=== PATIENT | male | born 1995 | race Caucasian/White ===

== ENCOUNTER 2021-06-14 19:39 | Emergency (ER) | payer OTHER ==
[2021-06-14] MEDS ORDERED: HYDROcod/ACETAM 5/325 MG TABLET PO STA (20:45)
--- NOTE | 2021-06-14 20:48 | ED Physician Documentation ---
History of Present Illness - Stated complaint Stated Complaint: LEFT EAR PX - Chief complaint Chief Complaint: Heent - History obtained from History obtained from: Patient - History of Present Illness Timing: How many days ago (2) Pain level max: 7 Pain level now: 7 - Additonal information Additional information: 26-year-old male states that he has had pain in the left ear for 2 days. Nothing makes it better or worse. No fevers. No chills. No rhinorrhea or congestion. No cough. Review of Systems Constitutional: denies: Fever, Chills GI: denies: Vomiting, Diarrhea Skin: denies: Rash Musculoskeletal: denies: Neck pain, Back pain Neurologic: denies: Headache PD PAST MEDICAL HISTORY - Past Medical History Past Medical History: Yes : Kidney stones - Past Surgical History Past Surgical History: Yes Ortho: Other - Present Medications Home Medications: Ambulatory Orders Medication Instructions Recorded Confirmed Neomycin/Polymyx/Hc Otic Drops 4 drops OT TID 10 Days #10 ml 06/14/21 [Cortisporin Ear Susp] - Allergies Allergies/Adverse Reactions: Allergies Allergy/AdvReac Type Severity Reaction Status Date / Time No Known Drug Allergies Allergy Verified 06/14/21 19:42 - Social History Does the pt smoke?: Yes Smoking Status: Current every day smoker Does the pt drink ETOH?: Yes - Immunizations Immunizations are current?: No Immunizations: TDAP >10years/unknown PD ED PE NORMAL - Vitals Vital signs reviewed: Yes - General General: Alert and oriented X 3, No acute distress - HEENT HEENT: Moist mucous membranes, Pharynx benign, Other (Bilateral TMs are normal. Right ear canal is normal. The left ear canal is erythematous with white drainage.) - Neck Neck: Supple, no meningeal sign - Derm Derm: Warm and dry - Neuro Neuro: Alert and oriented X 3 Results - Vitals Vitals: Vital Signs - 24 hr 06/14/21 06/14/21 06/14/21 19:43 20:02 20:56 Temperature 36.5 C 36.5 C 36.5 C Heart Rate 80 80 72 Respiratory 16 16 16 Rate Blood Pressure 143/77 H 143/77 H 142/81 H O2 Saturation 97 97 97 Oxygen O2 Source Room air PD MEDICAL DECISION MAKING - ED course Complexity details: considered differential, d/w patient ED course: Patient with a mild left acute otitis externa. Will place on Cortisporin otic. We will have him follow-up with his doctor for further care. Patient counseled regarding signs and symptoms for which I believe and urgent re-evaluation would be necessary. Patient with good understanding of and agreement to plan and is comfortable going home at this time This document was made in part using voice recognition software. While efforts are made to proofread this document, sound alike and grammatical errors may occur. Departure - Departure Disposition: 01 Home, Self Care Clinical Impression: Otitis externa Qualifiers: Otitis externa type: unspecified type Chronicity: acute Laterality: left Qualified Code(s): H60.502 - Unspecified acute noninfective otitis externa, left ear Condition: Good Instructions: ED Otitis Externa Follow-Up: your,doctor in 1 week [Other] Prescriptions: Neomycin/Polymyx/Hc Otic Drops [Cortisporin Ear Susp] 4 drops OT TID 10 Days #10 ml Comments: Use the antibiotic drops as prescribed. Follow-up with your doctor for further care. Return if you worsen. [facility] was [facility] to [facility] [place] Discharge Date/Time: 06/14/21 20:56
[2021-06-14 20:57] VITALS: BP 142/81
== END 2021-06-14 20:56 | disposition home or self-care (01) ==
LOC: ED 19:39
DX: H60.502 Unspecified acute noninfective otitis externa, left ear (principal); F17.200 Nicotine dependence, unspecified, uncomplicated
CPT/HCPCS: 99282; 99283; A9270

== ENCOUNTER 2021-07-06 18:03 | Emergency (ER) | payer MEDICAID ==
[2021-07-06] MEDS ORDERED: HYDROmorphone 1 MG/ML CARPUJECT IM STA (21:15)
--- NOTE | 2021-07-06 21:17 | ED Physician Documentation ---
History of Present Illness - Stated complaint Stated Complaint: EAR PX,BACK PX - Chief complaint Chief Complaint: Ext Problem - Additonal information Additional information: 18-year-old male presents emergency department for 3 concerns 1. Acute left ear pain that he noticed this evening when he got out of the bath. He reports he submerges his head in the bathtub wash his hair and he had some pain and discharge following this. No recent cough cold congestion or fevers. He is concerned he may have an ear infection. 2. Right small toe pain after dropping a 20 pound toolbox on it this afternoon. Pain with weightbearing but no deformity. No history of previous injury 3. Left low back pain after lifting boxes of heavy ramsey yesterday. He denies any history of previous back pain. No saddle anesthesia. No fevers. No bowel or bladder incontinence. He has not taken anything for pain. Review of Systems Constitutional: denies: Fever, Chills Eyes: reports: Reviewed and negative Ears: reports: Ear pain Nose: reports: Reviewed and negative Throat: reports: Reviewed and negative Cardiac: reports: Reviewed and negative Respiratory: reports: Reviewed and negative GI: denies: Abdominal Pain, Nausea, Vomiting : reports: Reviewed and negative Skin: denies: Rash Musculoskeletal: reports: Back pain PD PAST MEDICAL HISTORY - Past Medical History : Kidney stones - Past Surgical History Past Surgical History: Yes Ortho: Other - Present Medications Home Medications: Ambulatory Orders Medication Instructions Recorded Confirmed Neomycin/Polymyx/Hc Otic Drops 4 drops OT TID 10 Days #10 ml 06/14/21 [Cortisporin Ear Susp] Cyclobenzaprine [Flexeril] 10 mg PO TID PRN #15 tablet 07/06/21 Ibuprofen [Motrin] 600 mg PO Q6H PRN #30 tab 07/06/21 - Allergies Allergies/Adverse Reactions: Allergies Allergy/AdvReac Type Severity Reaction Status Date / Time No Known Drug Allergies Allergy Verified 07/06/21 18:26 - Social History Does the pt smoke?: Yes Smoking Status: Current every day smoker Does the pt drink ETOH?: Yes - Immunizations Immunizations are current?: No Immunizations: TDAP >10years/unknown PD ED PE EXPANDED - General General: Alert, No acute distress - Cardiac Cardiac: Regular Rate, Radial strong equal, Pedal strong equal, Cap refill < 2 sec - Respiratory Respiratory: Clear to ausultation thomas. No: Distress, Labored - Abdomen Abdomen: Normal Bowel sounds. No: Tender to palpation - Back Back: Normal exam, Soft tissue tenderness (Left lower paraspinous tenderness. Reduced forward flexion. Mildly antalgic gait. Able to bear full weight. No midline spinous process tenderness.). No: Vertebral tenderness, Straight leg raise + R, Straight leg raise + L, CVA TTP right, CVA TTP left - Derm Derm: Normal color, Warm and dry - Extremities Extremities: Right toe(s) (Tenderness without ecchymosis or deformity to the ri ght small toe. Tenderness to palpation.) Results - Vitals Vitals: Vital Signs - 24 hr 07/06/21 18:27 Temperature 36.9 C Heart Rate 77 Respiratory 18 Rate Blood Pressure 151/70 H O2 Saturation 97 Oxygen O2 Source Room air - Rads (name of study) toes Radiology: EMP read indepedently (no acute fracture) PD MEDICAL DECISION MAKING - ED course Complexity details: reviewed results, considered differential, d/w patient ED course: 18-year-old male presents emergency department with 3 concerns. 1. Complaints of left ear pain when submerging his head in the bath. Reported some drainage following the bath. On exam there is a small amount of cerumen within the ear canal but no fluid or EAC erythema. The tympanic membranes intact without effusion noted. There is no mastoid tenderness or swelling of the external ear. 2. Right small toe pain after dropping a toolbox on it. My evaluation of the x-ray shows no acute fracture. I discussed with patient that this likely could be a subtle contusion versus an occult fracture. Toe will be chris taped recomm end ibuprofen and icing following up with PCP. 3. Left low back pain after lifting boxes of heavy ramsey yesterday. There are no red flags. Initially offered the patient Dilaudid but he prefers an oral hydrocodone. Patient will be prescribed ibuprofen with limited amount of muscle relaxer discussed the importance of gentle stretching and ice versus heat. Emergent return precautions discussed. Departure - Departure Disposition: 01 Home, Self Care Clinical Impression: Contusion of right lesser toe(s) with damage to nail, initial encounter, Left ear pain Left low back pain Qualifiers: Chronicity: acute Sciatica presence: without sciatica Qualified Code(s): M54.5 - Low back pain Condition: Stable Record reviewed to determine appropriate education?: Yes Prescriptions: Cyclobenzaprine [Flexeril] 10 mg PO TID PRN #15 tablet PRN Reason: Spasms Ibuprofen [Motrin] 600 mg PO Q6H PRN #30 tab PRN Reason: Pain Comments: Sj cooper were seen today for 3 concerns. You reported left ear pain. There is a small amount of earwax in the ear canal but there are no findings to suggest infection in the ear canal or behind the eardrum. You also dropped a heavy toolbox on your small right toe. The x-ray does not show a fracture. It is possible that you simply have a contusion or bruise. This can be very uncomfortable. I do recommend that you ice the toe over the next 2 to 3 days. Taping your toe next to the other toe can help improve pain. Most instances this will begin to resolve over the next 7 to 10 days. You also developed some left-sided back pain after lifting heavy ramsey. Again this is most likely a muscle strain or contusion. You were given a one- time dose of hydrocodone here in the emergency department. The recommendation for back pain is gentle stretching to keep the muscles nice and limber. Icing the back for 10 minutes 3 times a day for the first 2 to 3 days and then gentle heat. I am prescribing a limited amount of ibuprofen to be taken with food. I will also prescribe a little bit of a muscle relaxer which should help. I encourage you to follow-up with your primary care provider over the next week. If your symptoms are not improving, you develop fevers have uncontrolled vomiting, develop drainage from your ear then please return immediately to the ER.
[2021-07-06] MEDS ORDERED: HYDROcod/ACETAM 5/325 MG TABLET PO STA (21:19)
--- NOTE | 2021-07-06 21:29 | XRAY Report ---
PROCEDURE: Toe(s) RT INDICATIONS: dropped object little toe TECHNIQUE: 3 views of the fifth toe(s) acquired. COMPARISON: None. FINDINGS: Bones: No definite fracture. No dislocations. No suspicious bony lesions. Soft tissues: No suspicious soft tissue densities. IMPRESSION: No definite fracture. Consider follow-up radiographs in 10-14 days. Reviewed by: Jose Faye MD on 07/06/2021 9:28 PM PDT Approved by: Jose Faye MD on 07/06/2021 9:28 PM PDT Station ID: [id number]
[2021-07-06 21:33] VITALS: BP 133/85
== END 2021-07-06 21:33 | disposition home or self-care (01) ==
LOC: ED 18:03
DX: S90.121A Contusion of right lesser toe(s) without damage to nail, initial encounter (principal); W20.8XXA Other cause of strike by thrown, projected or falling object, initial encounter; H92.02 Otalgia, left ear; M54.5 Low back pain; F17.200 Nicotine dependence, unspecified, uncomplicated
CPT/HCPCS: 73660; 99283; 99284; A9270

== ENCOUNTER 2021-07-16 08:52 | Emergency (ER) | payer MEDICAID ==
--- NOTE | 2021-07-16 09:44 | ED Physician Documentation ---
PD HPI NVD - Stated complaint Stated Complaint: NAUSEA/CHILLS - Chief complaint Chief Complaint: Abd Pain - History obtained from History obtained from: Patient - History of Present Illness Timing - onset: Last night, Yesterday Timing - duration: Days (1) Timing - details: Abrupt onset, Still present Associated symptoms: Fever, Loss of appetite, Other (general malaise, nausea, diarrhea and feverish since last evening. Multiple episodes of loose/watery stool diarrhea.). No: Near syncope / syncope Contributing factors: No: Sick contact, Bad food, Travel, Recent antibiotics Similar symptoms before: Has not had sx before Recently seen: Not recently seen Review of Systems Constitutional: reports: Fever, Chills, Myalgias Nose: denies: Rhinorrhea / runny nose, Congestion Throat: denies: Sore throat Cardiac: reports: Chest pain / pressure. denies: Palpitations Respiratory: denies: Cough GI: reports: Nausea, Diarrhea, Bloody / black stool (he states the stools are dark.). denies: Abdominal Pain (intermittent cramps, not consistent.), Vomiting, Constipation Neurologic: reports: Generalized weakness. denies: Near syncope, Altered mental status, Headache PD PAST MEDICAL HISTORY - Past Medical History Cardiovascular: None Respiratory: None Neuro: None GI: None : Kidney stones - Past Surgical History Past Surgical History: Yes Ortho: Other - Present Medications Home Medications: Ambulatory Orders Medication Instructions Recorded Confirmed Neomycin/Polymyx/Hc Otic Drops 4 drops OT TID 10 Days #10 ml 06/14/21 [Cortisporin Ear Susp] Cyclobenzaprine [Flexeril] 10 mg PO TID PRN #15 tablet 07/06/21 07/16/21 Ibuprofen [Motrin] 600 mg PO Q6H PRN #30 tab 07/06/21 07/16/21 Diphenoxylate/Atropine [Lomotil] 1 each PO QID PRN #10 tablet 07/16/21 FLUoxetine [PROzac] 1 tab PO DAILY 07/16/21 07/16/21 HYDROcod/ACETAM 5/325 [Mifflin 5/325] 1 ea PO Q6H PRN #10 tablet 07/16/21 Lurasidone HCl [Latuda] 10 mg PO DAILY 07/16/21 07/16/21 Ondansetron Odt [Zofran] 4 mg TL Q6H PRN #10 tablet 07/16/21 - Allergies Allergies/Adverse Reactions: Allergies Allergy/AdvReac Type Severity Reaction Status Date / Time No Known Drug Allergies Allergy Verified 07/16/21 09:23 - Social History Does the pt smoke?: Yes Smoking Status: Current every day smoker Does the pt drink ETOH?: Yes - Immunizations Immunizations are current?: No Immunizations: TDAP >10years/unknown PD ED PE NORMAL - Vitals Vital signs reviewed: Yes - General General: Alert and oriented X 3, Well developed/nourished - HEENT HEENT: Pharynx benign. No: Moist mucous membranes - Neck Neck: Supple, no meningeal sign, No adenopathy - Cardiac Cardiac: RRR, No murmur - Respiratory Respiratory: Clear bilaterally - Abdomen Abdomen: Soft, Non tender, Non distended, No organomegaly - Derm Derm: Normal color, Warm and dry - Neuro Neuro: Alert and oriented X 3, No motor deficit, Normal speech Results - Vitals Vitals: Oxygen O2 Source Room air - Labs Labs: Microbiology 07/16/21 10:19 Occult Blood - Final Stool - Soft Consistency PD MEDICAL DECISION MAKING - ED course Complexity details: re-evaluated patient (feeling much better with IV fluids and meds. ), considered differential (seems likely viral GE. No abd tenderness, so does not seem like appy, divertic, local process. Can give IV fluids. Check stool for guaiac and culture. ), d/w patient Departure - Departure Disposition: 01 Home, Self Care Clinical Impression: Nausea vomiting and diarrhea, Viral illness Condition: Stable Record reviewed to determine appropriate education?: Yes Instructions: ED Diet Vomiting Diarrhea Prescriptions: Diphenoxylate/Atropine [Lomotil] 1 each PO QID PRN #10 tablet PRN Reason: Diarrhea HYDROcod/ACETAM 5/325 [Mifflin 5/325] 1 ea PO Q6H PRN #10 tablet PRN Reason: Pain Ondansetron Odt [Zofran] 4 mg TL Q6H PRN #10 tablet PRN Reason: Nausea / Vomiting Comments: At this point I would presume your symptoms are of viral "stomach flu" or food related. I would suggest small frequent fluids and bland food over the next 2 to 3 days. Use ondansetron if needed for nausea and antidiarrheal medicine as needed. Tylenol if needed for pains and cramps. Add hydrocodone if needed for worse pains or cramps in the short-term. I transmitted your prescriptions to [facility] in [place]. I would anticipate improvement in the next day or 2. Return if not improving well and in particular if you develop any localized pain, persistent vomiting, bloody stools, fever, other concerns. I am prescribing a short course of narcotic pain medication for you. These are potentially dangerous and addictive medications that should be used carefully. These medications may constipate you. Take an dxrf-may-bcrsefo stool softener such as docusate twice daily with plenty of water while taking these medications. If you go 24 hours without a bowel movement, take [id number] MiraLAX, per package instructions. Do not drink or drive while taking these medications. If you received narcotic or sedating medications while in the emergency department do not drive for 24 hours. Store this medication in a safe, secure place and out of reach of children. It is a violation of federal law to give or sell this medication to another person or to use in a manner other than prescribed. The ED will not refill narcotic prescriptions, including prescriptions lost or stolen. You can dispose of unwanted medications at the [facility]'s office or at several pharmacies such as [facility]. Discharge Date/Time: 07/16/21 13:17
[2021-07-16] MEDS ORDERED: SODIUM CHLORIDE 0.9% 1,000 ML IV STA ×2 (10:18→10:19)
[2021-07-16] MEDS ORDERED: ONDANSETRON 4 MG/2 ML VIAL IVP STA (10:18)
[2021-07-16] MEDS ORDERED: FAMOTIDINE 20 MG/2 ML VIAL IVP STA (10:19)
[2021-07-16] MEDS ORDERED: KETOROLAC 15 MG/ML VIAL IVP STA (10:19)
[2021-07-16] MEDS ORDERED: DIPHENOX/ATROPINE 2.5/0.025 MG TABLET PO STA (12:18)
[2021-07-16 12:19] VITALS: BP 125/63
== END 2021-07-16 13:17 | disposition home or self-care (01) ==
LOC: ED 08:52
DX: B34.9 Viral infection, unspecified (principal); F17.200 Nicotine dependence, unspecified, uncomplicated
CPT/HCPCS: 81599; 82272; 96374; 96375; 99284; A9270; 87045; 87046

== ENCOUNTER 2021-07-27 19:04 | Emergency (ER) | payer MEDICAID ==
[2021-07-27 19:12] VITALS: BP 142/96
[2021-07-27] MEDS ORDERED: AMOXICILLIN 250 MG CAPSULE PO STA (20:09)
[2021-07-27] MEDS ORDERED: BUPIVACAINE 0.5% PF 10 ML VIAL SUBQ STA (20:09)
[2021-07-27] MEDS ORDERED: HYDROcod/ACET 5/325 Prepack 4 PO STA (20:10)
--- NOTE | 2021-07-27 20:10 | ED Physician Documentation ---
History of Present Illness - Stated complaint Stated Complaint: TOOTHACHE - Chief complaint Chief Complaint: Heent - History obtained from History obtained from: Patient - Additonal information Additional information: 2 days of severe dental pain from right lateral maxillary incisor that he had a filling placed on about 2 weeks ago. No facial swelling or fevers. Review of Systems Constitutional: reports: Reviewed and negative Ears: reports: Reviewed and negative Nose: reports: Reviewed and negative PD PAST MEDICAL HISTORY - Past Medical History Past Medical History: Yes Cardiovascular: None Respiratory: None Neuro: None GI: None : Kidney stones - Past Surgical History Past Surgical History: Yes Ortho: Other - Present Medications Home Medications: Ambulatory Orders Medication Instructions Recorded Confirmed Neomycin/Polymyx/Hc Otic Drops 4 drops OT TID 10 Days #10 ml 06/14/21 [Cortisporin Ear Susp] Cyclobenzaprine [Flexeril] 10 mg PO TID PRN #15 tablet 07/06/21 07/16/21 Ibuprofen [Motrin] 600 mg PO Q6H PRN #30 tab 07/06/21 07/16/21 Diphenoxylate/Atropine [Lomotil] 1 each PO QID PRN #10 tablet 07/16/21 FLUoxetine [PROzac] 1 tab PO DAILY 07/16/21 07/16/21 HYDROcod/ACETAM 5/325 [Bison 5/325] 1 ea PO Q6H PRN #10 tablet 07/16/21 Lurasidone HCl [Latuda] 10 mg PO DAILY 07/16/21 07/16/21 Ondansetron Odt [Zofran] 4 mg TL Q6H PRN #10 tablet 07/16/21 Amoxicillin 500 mg PO TID #30 cap 07/27/21 HYDROcod/ACETAM 5/325 [Bison 5/325] 1 - 2 tab PO Q6H PRN #15 tablet 07/27/21 - Allergies Allergies/Adverse Reactions: Allergies Allergy/AdvReac Type Severity Reaction Status Date / Time No Known Drug Allergies Allergy Verified 07/27/21 19:07 - Social History Does the pt smoke?: Yes Smoking Status: Current every day smoker Does the pt drink ETOH?: Yes - Immunizations Immunizations are current?: No Immunizations: TDAP >10years/unknown - POLST Patient has POLST: No PD ED PE NORMAL - Vitals Vital signs reviewed: Yes - General General: Alert and oriented X 3, No acute distress - HEENT HEENT: Other (TTP #7, no facial swelling) - Neuro Neuro: Alert and oriented X 3, Normal speech Results - Vitals Vitals: Vital Signs - 24 hr 07/27/21 19:07 Temperature 36.3 C L Heart Rate 97 Respiratory 18 Rate Blood Pressure 142/96 H O2 Saturation 96 Oxygen O2 Source Room air Procedures - Regional nerve block Nerve block site: Infraorbital Right / left: Right Nerve block anesthesia: Marcaine 0.5% Nerve block aftercare: Excellent anesthesia Departure - Departure Disposition: Home, Self Care Clinical Impression: Pain due to dental caries Condition: Good Record reviewed to determine appropriate education?: Yes Instructions: ED Tooth Pain Prescriptions: Amoxicillin 500 mg PO TID #30 cap HYDROcod/ACETAM 5/325 [Bison 5/325] 1 - 2 tab PO Q6H PRN #15 tablet PRN Reason: Pain Comments: Prescription sent electronically to [facility] in [place]. I am prescribing a short course of narcotic pain medication for you. These are potentially dangerous and addictive medications that should be used carefully. These medications may constipate you. Take an lkxp-xhh-wvdfkvx stool softener (docusate) twice daily with plenty of water while taking these medications. If you go 24 hours without a bowel movement, take [id number]-nwm-vuickps miralax, per package instructions. Do not drink or drive while taking these medications. If you received narcotic or sedating medications while in the emergency department, do not drive for 24 hours. Store this medication in a safe, secure place and out of reach of children. It is a violation of federal law to give or sell this medication to another person or to use in a manner other than prescribed. The ED will not refill narcotic prescriptions, including prescriptions lost or stolen. To dispose of unwanted medications: 1. [facility] at [address] [facility] in [place] has a medication drop box. They accept prescription medications (in pill form) Monday through Monday 9:00 a.m. to 5:00 p.m. 2. [facility] accepts prescription medications (in pill form only) for disposal year round. Call for more information. 3. Contact the [facility] for the next [facility] sponsored prescription drug collection event. , [phone], or [phone]; Note that many narcotic pain relievers also contain Tylenol/acetaminophen. Please ensure that your total dose of acetaminophen from all sources does not exceed 3 g (3000 mg) per day. It is very important that you follow-up with a dentist. When it comes to dental problems like yours, the emergency department can only offer a short-term solution to your long-term problem. A couple of low cost options for dental care include: [facility] in [place], calls [phone] for an appointment Or [facility] [employer] [facility] in [place], call [phone] for an appointment.
== END 2021-07-27 20:31 | disposition home or self-care (01) ==
LOC: ED 19:04
DX: K02.9 Dental caries, unspecified (principal); K08.89 Other specified disorders of teeth and supporting structures; F17.200 Nicotine dependence, unspecified, uncomplicated
CPT/HCPCS: 64400; 99282; 99283; A9270

== ENCOUNTER 2021-09-13 16:53 | Emergency (ER) | payer MEDICAID ==
[2021-09-13 17:31] VITALS: BP 132/72
[2021-09-13] MEDS ORDERED: IBUPROFEN 800 MG TABLET PO STA (18:35)
--- NOTE | 2021-09-13 18:35 | ED Physician Documentation ---
PD HPI SKIN - Stated complaint Stated Complaint: RASHES ON FEET - Chief complaint Chief Complaint: Wound - History obtained from History obtained from: Patient - Additional information Additional information: 1 week of pain and skin breakdown to the tops of both feet, right slightly worse than left. Specific concern for fungal infection. No fevers. He does ask for [place] by name. Note made that in the last few months he has frequented the emergency department and his dentist and gotten repeated prescriptions for narcotics and as such for the specific diagnosis narcotics were declined. Review of Systems Constitutional: reports: Reviewed and negative Ears: reports: Reviewed and negative Nose: reports: Reviewed and negative Throat: reports: Reviewed and negative Cardiac: reports: Reviewed and negative PD PAST MEDICAL HISTORY - Past Medical History Cardiovascular: None Respiratory: None Neuro: None GI: None : Kidney stones - Past Surgical History Past Surgical History: Yes Ortho: Other - Present Medications Home Medications: Ambulatory Orders Medication Instructions Recorded Confirmed Neomycin/Polymyx/Hc Otic Drops 4 drops OT TID 10 Days #10 ml 06/14/21 [Cortisporin Ear Susp] Cyclobenzaprine [Flexeril] 10 mg PO TID PRN #15 tablet 07/06/21 07/16/21 Ibuprofen [Motrin] 600 mg PO Q6H PRN #30 tab 07/06/21 07/16/21 Diphenoxylate/Atropine [Lomotil] 1 each PO QID PRN #10 tablet 07/16/21 FLUoxetine [PROzac] 1 tab PO DAILY 07/16/21 07/16/21 HYDROcod/ACETAM 5/325 [[place] 5/325] 1 ea PO Q6H PRN #10 tablet 07/16/21 Lurasidone HCl [Latuda] 10 mg PO DAILY 07/16/21 07/16/21 Ondansetron Odt [Zofran] 4 mg TL Q6H PRN #10 tablet 07/16/21 Amoxicillin 500 mg PO TID #30 cap 07/27/21 HYDROcod/ACETAM 5/325 [[place] 5/325] 1 - 2 tab PO Q6H PRN #15 tablet 07/27/21 Ibuprofen [Motrin] 800 mg PO Q8H PRN #30 tablet 09/13/21 Triamcinolone 0.1% Oint 1 applic TOP BID #80 gm 09/13/21 - Allergies Allergies/Adverse Reactions: Allergies Allergy/AdvReac Type Severity Reaction Status Date / Time No Known Drug Allergies Allergy Verified 09/13/21 17:30 - Social History Does the pt smoke?: Yes Smoking Status: Current every day smoker Does the pt drink ETOH?: Yes - Immunizations Immunizations are current?: No Immunizations: TDAP >10years/unknown - POLST Patient has POLST: No PD ED PE NORMAL - Vitals Vital signs reviewed: Yes - General General: Alert and oriented X 3, No acute distress - Derm Derm: Other (He has what looks like eczema to the tops of the feet. The soles are spared.) - Neuro Neuro: Alert and oriented X 3, Normal speech Results - Vitals Vitals: Vital Signs - 24 hr 09/13/21 17:27 Temperature 36.4 C L Heart Rate 70 Respiratory 16 Rate Blood Pressure 132/72 H O2 Saturation 99 Oxygen O2 Source Room air PD MEDICAL DECISION MAKING - ED course ED course: 26-year-old gentleman with what appears to be eczema to the tops of the feet. Treated with topical steroids. He requested narcotic analgesia which neither the diagnosis nor the pattern as stated in the HPI would suggest a need for. Departure - Departure Disposition: 01 Home, Self Care Clinical Impression: Eczema Qualifiers: Eczema type: unspecified Qualified Code(s): L30.9 - Dermatitis, unspecified Condition: Good Record reviewed to determine appropriate education?: Yes Instructions: ED Dermatitis Atopic Eczema Prescriptions: Ibuprofen [Motrin] 800 mg PO Q8H PRN #30 tablet PRN Reason: PAIN &/OR FEVER Triamcinolone 0.1% Oint 1 applic TOP BID #80 gm Comments: As discussed, apply the steroid ointment and then keep them covered with socks. I think after few days of this that she gets better. Follow-up with a radha matologist if not improving. Return for new or worsening symptoms. The policy of this emergency department is to not give more than 3 prescriptions for narcotics or other controlled substances in any 1 year. You have already surpassed this benchmark and we cannot prescribe narcotics for you. I encourage you to follow up with your primary care physician or to establish care with a primary care physician for ongoing pain management. You are always welcome to seek emergency care here for this or new issues but there will likely be limitations in the prescription of narcotic pain medication. Discharge Date/Time: 09/13/21 18:38
== END 2021-09-13 18:38 | disposition home or self-care (01) ==
LOC: ED 16:53
DX: L30.9 Dermatitis, unspecified (principal)
CPT/HCPCS: 99282; 99283; A9270

== ENCOUNTER 2021-09-15 16:47 | Emergency (ER) | payer MEDICAID ==
[2021-09-15 16:58] VITALS: BP 148/81
[2021-09-15 17:34] LABS: BILIRUBIN,URINE NEGATIVE (NEGATIVE); GLUCOSE, URINE (UA) NEGATIVE (NEGATIVE); KETONES,URINE (UA) NEGATIVE (NEGATIVE); LEUKOCYTE ESTERASE, URINE NEGATIVE (NEGATIVE); NITRITE,URINE NEGATIVE (NEGATIVE); OCCULT BLOOD,URINE NEGATIVE (NEGATIVE); PROTEIN,URINE NEGATIVE (NEGATIVE); UROBILINOGEN,URINE 0.2 (NORMAL) E.U./dL (NORMAL)
[2021-09-15 17:35] LABS: CLARITY,URINE CLEAR (CLEAR)
--- NOTE | 2021-09-15 17:48 | XRAY Report ---
PROCEDURE: Toe(s) RT INDICATIONS: R 5th toe injury TECHNIQUE: 3 views of the fifth toe(s) acquired. COMPARISON: 07/06/2021. FINDINGS: Bones: No acute fractures or dislocations. There is a remote appearing fracture seen involving the p roximal aspect of the proximal phalanx of the fifth toe. No suspicious bony lesions. Soft tissues: No suspicious soft tissue densities. IMPRESSION: No acute fractures are seen. Remote appearing fracture involving the proximal aspect of the proximal phalanx of the fifth toe. Reviewed by: Keenan Servin MD on 09/15/2021 4:46 PM [facility] Approved by: Keenan Servin MD on 09/15/2021 4:46 PM [facility] Station ID: [id number]
[2021-09-15 17:49] LABS: BASOPHILS % (AUTO) 0.7 %; EOSINOPHILS # (AUTO) 0.1 10^3/uL (0.0-0.7); EOSINOPHILS % (AUTO) 2.1 %; HCT - HEMATOCRIT 43.6 % (42.0-52.0); LYMPHOCYTES # (AUTO) 1.9 10^3/uL (1.5-3.5); LYMPHOCYTES % (AUTO) 32.8 %; MEAN CORPUSCULAR HEMOGLOBIN 30.7 pg (27.0-31.0); MEAN CORPUSCULAR HGB CONC 34.4 g/dL (32.0-36.0); MEAN CORPUSCULAR VOLUME 89.3 fL (80.0-94.0); MEAN PLATELET VOLUME 10.4 fL (7.4-11.4); MONOCYTES # (AUTO) 0.5 10^3/uL (0.0-1.0); MONOCYTES % (AUTO) 8.1 %; NEUTROPHILS # (AUTO) 3.2 10^3/uL (1.5-6.6); NEUTROPHILS % (AUTO) 56.1 %; PLT - PLATELET COUNT 220 10^3/uL (130-450); RED BLOOD COUNT 4.88 10^6/uL (4.70-6.10); RED CELL DISTRIBUTION WIDTH 12.5 % (12.0-15.0); WHITE BLOOD COUNT 5.8 x10^3/uL (4.8-10.8)
--- NOTE | 2021-09-15 17:52 | CT Report ---
PROCEDURE: Abdomen/Pelvis WO INDICATIONS: L flank pain, h/o kidney stones TECHNIQUE: Noncontrast 5 mm thick sections acquired from the diaphragms to the symphysis. 5 mm coronal and sagi ttal reformats were then performed. For radiation dose reduction, the following was used: automated exposure control, adjustment of mA and/or kV according to patient size. COMPARISON: None. FINDINGS: Image quality: Excellent. ABDOMEN: Lung bases: Lung bases are clear. Heart size is normal. Solid organs: Liver and spleen are normal in size. Gallbladder wall does not appear thickened. P ancreas is normal in contours. No adrenal nodules. Left-sided hydronephrosis is seen, yet there is no cause of obstruction seen. There is no left-sided hydroureter. No stones are seen within the left ureter. Nonobstructing stones are seen within either kidney. A right-sided hydronephrosis is seen. Along the periphery of the left kidney, there is a 4 mm hyperdense nodule, as on series 6 image 42 and on series 3 image 40. Peritoneum and bowel: Unenhanced bowel loops demonstrate normal wall thickness and caliber. No free fluid or air. A normal appendix is incidentally noted. Diverticulosis can be seen, without gabe f indings of active diverticulitis. Nodes and vessels: No retroperitoneal or mesenteric adenopathy by size criteria. Aorta and inferior vena cava are normal in caliber. Miscellaneous: No ventral hernias. PELVIS: Genitourinary: Bladder wall thickness is normal. Miscellaneous: No inguinal adenopathy. There is a fat-containing left inguinal hernia. Bones: No suspicious bony lesions. No vertebral body compression fractures. Postoperative change o f the left femoral neck can be seen. This patient has transitional anatomy. For the purposes of this examination, the level with last pair of ribs is considered to be T12. By this imaging scheme, the S1 level is transitional and partially lumbarized on the left. IMPRESSION: Left-sided hydronephrosis is seen, without an obstructing stone. No stones are seen within either kidney or within the bladder. Please consider a recently passed stone. There is a 4 mm hyperdense focus along the lateral aspect of the left kidney. This is felt most likel y to be benign. Attention should be paid to this focus on a future follow-up studies. Incidental note is made of: Normal appendix Sigmoid diverticulosis, without findings of active diverticulitis. 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 Postoperative change of the left femoral neck Fat-containing left inguinal hernia Reviewed by: Keenan Servin MD on 09/15/2021 4:50 PM [facility] Approved by: Keenan Servin MD on 09/15/2021 4:50 PM [facility] Station ID: [id number]
[2021-09-15] MEDS ORDERED: PENICILLIN VK 250 MG TABLET PO STA (17:55)
[2021-09-15] MEDS ORDERED: MELOXICAM 7.5 MG TABLET PO STA (17:55)
--- NOTE | 2021-09-15 17:58 | ED Physician Documentation ---
History of Present Illness - Stated complaint Stated Complaint: RASH/TOOTH PX/RT TOE INJ - Chief complaint Chief Complaint: General - History obtained from History obtained from: Patient - History of Present Illness Pain level max: 7 Pain level now: 7 - Additonal information Additional information: Patient is a 26-year-old male with multiple medical issues. He states that the first issue is he has right fifth toe pain after "stubbing it" earlier today. Worse with palpation and movement. Nothing makes it better. Has not taken any thing for pain. The second is a rash on the top of his feet for the past several weeks. He states he has been using triamcinolone cream without relief. He describes this as itchy. Not painful. The patient also complains of left flank pain. He states that he has a history of kidney stones and that this feels similar. This started today as well. No fevers. No urinary issues. He also complains of left upper dental pain. This been ongoing for several months. He has been seeing his dentist. Worse with eating and drinking. Nothing makes it better. No fevers. No facial swelling. No difficulty speaking or swallowing. Has not been on antibiotics recently. Patient was seen here 2 days ago and was informed that we can no longer prescribe opiates from this emergency department for him. He has had 5 opiate prescriptions in the past 2 months from 3 different providers. Review of Systems Ten Systems: 10 systems reviewed and negative Constitutional: denies: Fever, Chills Ears: denies: Ear pain Nose: denies: Rhinorrhea / runny nose, Congestion Respiratory: denies: Cough GI: denies: Nausea, Vomiting, Diarrhea : denies: Dysuria Skin: denies: Rash Musculoskeletal: denies: Neck pain, Back pain Neurologic: denies: Headache PD PAST MEDICAL HISTORY - Past Medical History Cardiovascular: None Respiratory: None Neuro: None Endocrine/Autoimmune: None GI: None : Kidney stones HEENT: None Psych: Depression, Anxiety, Panic attacks Musculoskeletal: None Derm: None - Past Surgical History Past Surgical History: Yes Ortho: Other - Present Medications Home Medications: Ambulatory Orders Medication Instructions Recorded Confirmed Neomycin/Polymyx/Hc Otic Drops 4 drops OT TID 10 Days #10 ml 06/14/21 [Cortisporin Ear Susp] Cyclobenzaprine [Flexeril] 10 mg PO TID PRN #15 tablet 07/06/21 07/16/21 Ibuprofen [Motrin] 600 mg PO Q6H PRN #30 tab 07/06/21 07/16/21 Diphenoxylate/Atropine [Lomotil] 1 each PO QID PRN #10 tablet 07/16/21 FLUoxetine [PROzac] 1 tab PO DAILY 07/16/21 07/16/21 HYDROcod/ACETAM 5/325 [[place] 5/325] 1 ea PO Q6H PRN #10 tablet 07/16/21 Lurasidone HCl [Latuda] 10 mg PO DAILY 07/16/21 07/16/21 Ondansetron Odt [Zofran] 4 mg TL Q6H PRN #10 tablet 07/16/21 Amoxicillin 500 mg PO TID #30 cap 07/27/21 HYDROcod/ACETAM 5/325 [[place] 5/325] 1 - 2 tab PO Q6H PRN #15 tablet 07/27/21 Ibuprofen [Motrin] 800 mg PO Q8H PRN #30 tablet 09/13/21 Triamcinolone 0.1% Oint 1 applic TOP BID #80 gm 09/13/21 Meloxicam [Mobic] 15 mg PO DAILY PRN #20 tablet 09/15/21 Penicillin V Potassium 500 mg PO Q6HR #40 tablet 09/15/21 Terbinafine [Lamisil] 250 mg PO DAILY #14 tablet 09/15/21 - Allergies Allergies/Adverse Reactions: Allergies Allergy/AdvReac Type Severity Reaction Status Date / Time No Known Drug Allergies Allergy Verified 09/15/21 16:58 - Social History Does the pt smoke?: Yes Smoking Status: Current every day smoker Does the pt drink ETOH?: Yes Does the pt have substance abuse?: No - Immunizations Immunizations are current?: No Immunizations: TDAP >10years/unknown - POLST Patient has POLST: No PD ED PE NORMAL - Vitals Vital signs reviewed: Yes - General General: Alert and oriented X 3, No acute distress, Well developed/nourished - HEENT HEENT: Moist mucous membranes, Other (Dental caries left upper molar) - Neck Neck: Supple, no meningeal sign - Cardiac Cardiac: RRR, Strong equal pulses - Respiratory Respiratory: No respiratory distress, Clear bilaterally - Abdomen Abdomen: Soft, Non tender, Non distended - Back Back: No CVA TTP, No spinal TTP - Derm Derm: Warm and dry - Neuro Neuro: Alert and oriented X 3 Results - Vitals Vitals: Vital Signs - 24 hr 09/15/21 16:55 Temperature 35.9 C L Heart Rate 62 Respiratory 16 Rate Blood Pressure 148/81 H O2 Saturation 100 Oxygen O2 Source Room air - Labs Labs: Laboratory Tests 09/15/21 09/15/21 09/15/21 17:25 17:45 17:45 WBC 5.8 RBC 4.88 Hgb 15.0 Hct 43.6 MCV 89.3 MCH 30.7 MCHC 34.4 RDW 12.5 Plt Count 220 MPV 10.4 Neut # (Auto) 3.2 Lymph # (Auto) 1.9 [place] # (Auto) 0.5 Eos # (Auto) 0.1 Baso # (Auto) 0.0 Absolute Nucleated RBC 0.00 Nucleated RBC % 0.0 Sodium 136 Potassium 3.7 Chloride 102 Carbon Dioxide 27 Anion Gap 7.0 BUN 6 Creatinine 0.7 Estimated GFR (MDRD) 134 Glucose 83 Calcium 9.0 Total Bilirubin 0.7 AST 26 ALT 42 Alkaline Phosphatase 113 Total Protein 6.9 Albumin 4.3 Globulin 2.6 Albumin/Globulin Ratio 1.7 Lipase 28 Urine Color YELLOW Urine Clarity CLEAR Urine pH 6.0 Ur Specific [place] 1.010 Urine Protein NEGATIVE Urine Glucose (UA) NEGATIVE Urine Ketones NEGATIVE Urine Occult Blood NEGATIVE Urine Nitrite NEGATIVE Urine Bilirubin NEGATIVE Urine Urobilinogen 0.2 (NORMAL) Ur Leukocyte Esterase NEGATIVE Ur Microscopic Review NOT INDICATED Urine Culture Comments NOT INDICATED - Rads (name of study) R foot xray Radiology: Final report received, EMP read contemporaneously, See rad report (no acute fractures) CT Abd/pelvis Radiology: Final report received, EMP read contemporaneously, See rad report PD MEDICAL DECISION MAKING - ED course Complexity details: reviewed results, re-evaluated patient, considered differential, d/w patient ED course: 26-year-old male with multiple complaints. We will place on antibiotics for the tooth complaints. He appears to have a likely tinea infection on his feet. Will place on terbinafine. No evidence of kidney stone. No fracture in the foot. It was discussed last time that he would not receive narcotics in the emergency department. Will prescribe anti-inflammatories. Patient counseled regarding signs and symptoms for which I believe and urgent re-evaluation would be necessary. Patient with good understanding of and agreement to plan and is comfortable going home at this time This document was made in part using voice recognition software. While efforts are made to proofread this document, sound alike and grammatical errors may occur. Left-sided hydronephrosis is seen, without an obstructing stone. No stones are seen within either kidney or within the bladder. Please consider a recently passed stone. There is a 4 mm hyperdense focus along the lateral aspect of the left kidney. This is felt most likely to be benign. Attention should be paid to this focus on a future follow- up studies. Incidental note is made of: Normal appendix Sigmoid diverticulosis, without findings of active diverticulitis. 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 Postoperative change of the left femoral neck Fat-containing left inguinal hernia Departure - Departure Disposition: 01 Home, Self Care Clinical Impression: Pain due to dental caries, Flank pain Contusion, toe Qualifiers: Encounter type: initial encounter Toe: lesser toe Damage to nail status: without damage Laterality: right Qualified Code(s): S90.121A - Contusion of right lesser toe(s) without damage to nail, initial encounter Tinea pedis Qualifiers: Laterality: bilateral Qualified Code(s): B35.3 - Tinea pedis Condition: Good Instructions: ED Contusion Lower Ext, ED Tooth Pain, ED Infec Skin Fungal Tinea, ED Abdominal Pain Unkn Cause Male Follow-Up: your,doctor in 1 week [Other] Prescriptions: Penicillin V Potassium 500 mg PO Q6HR #40 tablet Terbinafine [Lamisil] 250 mg PO DAILY #14 tablet Meloxicam [Mobic] 15 mg PO DAILY PRN #20 tablet PRN Reason: pain Comments: Your prescriptions were sent to [facility] in [place]. Please follow-up with your doctor for further care. Return if you worsen. Take all antibiotics until gone. It is important to follow-up with a dentist for your ongoing tooth pain. Your x-ray does not show any acute abnormalities today. Your CT scan does not show any acute kidney stone either. CT Results: IMPRESSION: Left-sided hydronephrosis is seen, without an obstructing stone. No stones are seen within either kidney or within the bladder. Please consider a recently passed stone. There is a 4 mm hyperdense focus along the lateral aspect of the left kidney. This is felt most likely to be benign. Attention should be paid to this focus on a future follow- up studies. Incidental note is made of: Normal appendix Sigmoid diverticulosis, without findings of active diverticulitis. 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 Postoperative change of the left femoral neck Fat-containing left inguinal hernia Forms: Activity restrictions Discharge Date/Time: 09/15/21 18:09
[2021-09-15 18:02] LABS: ALBUMIN 4.3 g/dL (3.2-5.5); ALBUMIN/GLOBULIN RATIO 1.7 (1.0-2.2); BILIRUBIN,TOTAL 0.7 mg/dL (0.2-1.0); CREATININE 0.7 mg/dL (0.6-1.2); POTASSIUM 3.7 mmol/L (3.5-5.0); TOTAL PROTEIN 6.9 g/dL (6.7-8.2)
== END 2021-09-15 18:09 | disposition home or self-care (01) ==
LOC: ED 16:47
DX: S90.121A Contusion of right lesser toe(s) without damage to nail, initial encounter (principal); W22.8XXA Striking against or struck by other objects, initial encounter; B35.3 Tinea pedis; K02.9 Dental caries, unspecified; K08.89 Other specified disorders of teeth and supporting structures; R10.9 Unspecified abdominal pain; N13.30 Unspecified hydronephrosis; Z87.442 Personal history of urinary calculi; F17.200 Nicotine dependence, unspecified, uncomplicated
CPT/HCPCS: 36415; 73660; 74176; 80053; 81003; 83690; 85025; 99283; 99284; A9270; 81001; 87086

== ENCOUNTER 2021-10-03 11:19 | Emergency (ER) | payer MEDICAID ==
[2021-10-03 11:35] VITALS: BP 135/73
--- NOTE | 2021-10-03 12:23 | XRAY Report ---
PROCEDURE: Chest 2 View X-Ray INDICATIONS: Cough and SOA TECHNIQUE: 2 views of the chest. COMPARISON: None. FINDINGS: Surgical changes and devices: None. Lungs and pleura: No pleural effusions or pneumothorax. Lungs are clear. Mediastinum: Mediastinal contours are normal. Heart size is normal. Bones and chest wall: No suspicious bony abnormalities. Soft tissues appear unremarkable. IMPRESSION: 1. No acute cardiopulmonary disease. Reviewed by: Loy Lopez MD on 10/03/2021 11:22 AM [facility] Approved by: Loy Lopez MD on 10/03/2021 11:22 AM [facility] Station ID: [id number]
[2021-10-03 12:45] LABS: B. PARAPERTUSSIS- RESP PCR PAN NOT DETECTED; B. PERTUSSIS- RESP PCR PANEL NOT DETECTED; C. PNEUMONIAE- RESP PCR PANEL NOT DETECTED; CORONAVIRUS 229E-RESP PCR NOT DETECTED; CORONAVIRUS HKU1-RESP PCR NOT DETECTED; CORONAVIRUS NL63-RESP PCR NOT DETECTED; CORONAVIRUS OC43-RESP PCR NOT DETECTED; HUMAN METAPNEUMOVIRUS NOT DETECTED; INFLUENZA A- RESP PCR PANEL NOT DETECTED; INFLUENZA B - RESP PCR PANEL NOT DETECTED; M. PNEUMONIAE- RESP PCR PANEL NOT DETECTED; PARAINFLUENZA VIRUS 1 NOT DETECTED; PARAINFLUENZA VIRUS 2 NOT DETECTED; PARAINFLUENZA VIRUS 3 NOT DETECTED; PARAINFLUENZA VIRUS 4 NOT DETECTED; RHINOVIRUS/ENTEROVIRUS NOT DETECTED; RSV- RESP PCR PANEL NOT DETECTED; SARS-CoV-2 -RESP PCR PANEL NOT DETECTED
--- NOTE | 2021-10-03 14:11 | ED Physician Documentation ---
History of Present Illness - Stated complaint Stated Complaint: COUGHING BLOOD/CHEST PX - Chief complaint Chief Complaint: Resp - History obtained from History obtained from: Patient - Additonal information Additional information: Patient comes emergency department chief complaint of cough that started yesterday. He states he is have some night sweats and he also saw some streaks of blood in his cough and is worried he might have TB. He does not have any known exposures to TB but states that he used to live in [place], which is "a very high risk place". Patient denies any fevers. He has had an occasional sense of chills. He also states that his Right mandibular teeth continue to hurt, but he has been to the dentist and they have told him he does not have any dental issues. No facial swelling. No other complaints at this time. Patient notes he has been vaccinated against Covid. Review of Systems Ten Systems: 10 systems reviewed and negative Constitutional: reports: Chills, Fatigue Eyes: reports: Reviewed and negative Ears: reports: Reviewed and negative Nose: reports: Reviewed and negative Throat: reports: Reviewed and negative Cardiac: reports: Reviewed and negative Respiratory: reports: Cough GI: reports: Reviewed and negative : reports: Reviewed and negative Skin: reports: Reviewed and negative Musculoskeletal: reports: Reviewed and negative Neurologic: reports: Reviewed and negative Psychiatric: reports: Reviewed and negative Endocrine: reports: Reviewed and negative Immunocompromised: reports: Reviewed and negative PD PAST MEDICAL HISTORY - Past Medical History Past Medical History: Yes Cardiovascular: None Respiratory: None Neuro: None Endocrine/Autoimmune: None GI: None : Kidney stones HEENT: None Psych: Depression, Anxiety, Panic attacks Musculoskeletal: None Derm: None - Past Surgical History Past Surgical History: Yes Ortho: Other - Present Medications Home Medications: Ambulatory Orders Medication Instructions Recorded Confirmed Neomycin/Polymyx/Hc Otic Drops 4 drops OT TID 10 Days #10 ml 06/14/21 [Cortisporin Ear Susp] Cyclobenzaprine [Flexeril] 10 mg PO TID PRN #15 tablet 07/06/21 07/16/21 Ibuprofen [Motrin] 600 mg PO Q6H PRN #30 tab 07/06/21 07/16/21 Diphenoxylate/Atropine [Lomotil] 1 each PO QID PRN #10 tablet 07/16/21 FLUoxetine [PROzac] 1 tab PO DAILY 07/16/21 07/16/21 HYDROcod/ACETAM 5/325 [[place] 5/325] 1 ea PO Q6H PRN #10 tablet 07/16/21 Lurasidone HCl [Latuda] 10 mg PO DAILY 07/16/21 07/16/21 Ondansetron Odt [Zofran] 4 mg TL Q6H PRN #10 tablet 07/16/21 Amoxicillin 500 mg PO TID #30 cap 07/27/21 HYDROcod/ACETAM 5/325 [[place] 5/325] 1 - 2 tab PO Q6H PRN #15 tablet 07/27/21 Ibuprofen [Motrin] 800 mg PO Q8H PRN #30 tablet 09/13/21 Triamcinolone 0.1% Oint 1 applic TOP BID #80 gm 09/13/21 Meloxicam [Mobic] 15 mg PO DAILY PRN #20 tablet 09/15/21 Penicillin V Potassium 500 mg PO Q6HR #40 tablet 09/15/21 Terbinafine [Lamisil] 250 mg PO DAILY #14 tablet 09/15/21 Naproxen [EC-Naproxen] 500 mg PO BID PRN #20 tab 10/03/21 - Allergies Allergies/Adverse Reactions: Allergies Allergy/AdvReac Type Severity Reaction Status Date / Time No Known Drug Allergies Allergy Verified 10/03/21 11:35 - Social History Does the pt smoke?: Yes Smoking Status: Current every day smoker Does the pt drink ETOH?: Yes Does the pt have substance abuse?: No - Immunizations Immunizations are current?: No Immunizations: TDAP >10years/unknown - POLST Patient has POLST: No PD ED PE NORMAL - Vitals Vital signs reviewed: Yes - General General: Alert and oriented X 3, No acute distress, Well developed/nourished - HEENT HEENT: Atraumatic, PERRL, EOMI, Moist mucous membranes - Neck Neck: Supple, no meningeal sign - Cardiac Cardiac: RRR, No murmur - Respiratory Respiratory: No respiratory distress, Clear bilaterally - Abdomen Abdomen: Soft, Non tender, Non distended - Derm Derm: Warm and dry - Extremities Extremities: No deformity - Neuro Neuro: Alert and oriented X 3 - Psych Psych: Normal mood, Normal affect Results - Vitals Vitals: Vital Signs - 24 hr 10/03/21 11:30 Temperature 36.5 C Heart Rate 72 Respiratory 16 Rate Blood Pressure 135/73 H O2 Saturation 100 Oxygen O2 Source Room air - Labs Labs: Laboratory Tests 10/03/21 11:41 Nasal Adenovirus (PCR) NOT DETECTED Nasal B. parapertussis DNA (PCR) NOT DETECTED Nasal Coronavir 229E PCR NOT DETECTED Nasal Coronavir HKU1 PCR NOT DETECTED Nasal Coronavir NL63 PCR NOT DETECTED Nasal Coronavir OC43 PCR NOT DETECTED Nasal Enterovir/Rhinovir PCR NOT DETECTED Nasal Influenza B PCR NOT DETECTED Nasal Influenza A PCR NOT DETECTED Nasal Parainfluen 1 PCR NOT DETECTED Nasal Parainfluen 2 PCR NOT DETECTED Nasal Parainfluen 3 PCR NOT DETECTED Nasal Parainfluen 4 PCR NOT DETECTED Nasal RSV (PCR) NOT DETECTED Nasal B.pertussis DNA PCR NOT DETECTED Nasal C.pneumoniae (PCR) NOT DETECTED Zhao Human Metapneumo PCR NOT DETECTED Nasal M.pneumoniae (PCR) NOT DETECTED Nasal SARS-CoV-2 (PCR) NOT DETECTED - Rads (name of study) Chest x-ray Radiology: Final report received, EMP read indepedently, See rad report (Negative) PD MEDICAL DECISION MAKING - ED course Complexity details: reviewed results, re-evaluated patient, considered differential, d/w patient ED course: Patient was sent for chest x-ray which is negative. He requested something nonnarcotic for his tooth pain, but did not want ibuprofen, so a prescription for naproxen has been sent to [facility] in [place]. I discussed with him that his sudden onset of symptoms yesterday makes TB unlikely and his chest x-ray is clear. However, if he wants to go get a skin test from his primary doctor, he may certainly do this. We have discussed the usual indications for return. Departure - Departure Disposition: 01 Home, Self Care Clinical Impression: Pain, dental Upper respiratory infection Qualifiers: URI type: unspecified viral URI Qualified Code(s): J06.9 - Acute upper respiratory infection, unspecified Condition: Stable Instructions: ED Tooth Pain, ED Viral Syndrome Prescriptions: Naproxen [EC-Naproxen] 500 mg PO BID PRN #20 tab PRN Reason: Pain Comments: Your prescription has been electronically transmitted to [facility] in [place]. Discharge Date/Time: 10/03/21 14:50
== END 2021-10-03 14:50 | disposition home or self-care (01) ==
LOC: ED 11:19
DX: J06.9 Acute upper respiratory infection, unspecified (principal); B97.89 Other viral agents as the cause of diseases classified elsewhere; Z20.822 Contact with and (suspected) exposure to COVID-19; K08.89 Other specified disorders of teeth and supporting structures; F17.200 Nicotine dependence, unspecified, uncomplicated
CPT/HCPCS: 0202U; 71046; 99283; 99284

== ENCOUNTER 2021-11-15 11:36 | Emergency (ER) | payer MEDICAID ==
[2021-11-15 11:53] VITALS: BP 138/71
[2021-11-15] MEDS ORDERED: CHERRY SYRUP 10 ML UDC PO ONE (13:15)
[2021-11-15] MEDS ORDERED: DEXAMETHASONE 10 MG/ML VIAL PO STA (13:15)
[2021-11-15] MEDS ORDERED: KETOROLAC 60 MG/2 ML VIAL IM STA (13:16)
--- NOTE | 2021-11-15 13:30 | ED Physician Documentation ---
PD HPI HEADACHE - Stated complaint Stated Complaint: HEAD PX - Chief complaint Chief Complaint: General - History obtained from History obtained from: Patient - History of Present Illness Timing - onset: How many days ago (5) Timing - onset during: Rest Timing - duration: Days (5) Timing - details: Gradual onset, Still present Worst headache ever?: No: Worst headache ever? Location: Front Quality: Stabbing Associated symptoms: Vision changes (photophobia). No: Fever, Stiff neck, Nausea, Vomiting, Weakness, Numbness, Syncope, Seizure, Eye pain Improved by: Rest, Dark room Worsened by: Light, Noise, Moving Contributing factors: No: Anticoagulated Similar symptoms before: No diagnosis Recently seen: Not recently seen - Additional information Additional information: 26-year-old male with weekly headaches has developed a headache that has persisted and is not improved with use of ibuprofen or Tylenol. Indicates he has developed a bit of a cough as well and has pain in the central portion of his head pain in his left neck. He has not had vomiting with this he does have some photophobia. He has not been diagnosed with migraine headache. Review of Systems Constitutional: denies: Fever, Chills Eyes: reports: Photophobia. denies: Decreased vision Ears: denies: Ear pain Nose: reports: Rhinorrhea / runny nose, Congestion Throat: denies: Sore throat Cardiac: denies: Chest pain / pressure, Palpitations Respiratory: reports: Cough. denies: Dyspnea GI: denies: Abdominal Pain, Nausea, Vomiting, Diarrhea : denies: Dysuria, Frequency Skin: denies: Rash Musculoskeletal: denies: Neck pain, Back pain, Extremity pain Neurologic: denies: Generalized weakness, Focal weakness, Numbness PD PAST MEDICAL HISTORY - Past Medical History Cardiovascular: None Respiratory: None Neuro: None Endocrine/Autoimmune: None GI: None : Kidney stones HEENT: None Psych: Depression, Anxiety, Panic attacks Musculoskeletal: None Derm: None - Past Surgical History Past Surgical History: Yes Ortho: Other - Present Medications Home Medications: Ambulatory Orders Medication Instructions Recorded Confirmed Neomycin/Polymyx/Hc Otic Drops 4 drops OT TID 10 Days #10 ml 06/14/21 [Cortisporin Ear Susp] Cyclobenzaprine [Flexeril] 10 mg PO TID PRN #15 tablet 07/06/21 07/16/21 Ibuprofen [Motrin] 600 mg PO Q6H PRN #30 tab 07/06/21 07/16/21 Diphenoxylate/Atropine [Lomotil] 1 each PO QID PRN #10 tablet 07/16/21 FLUoxetine [PROzac] 1 tab PO DAILY 07/16/21 07/16/21 HYDROcod/ACETAM 5/325 [[place] 5/325] 1 ea PO Q6H PRN #10 tablet 07/16/21 Lurasidone HCl [Latuda] 10 mg PO DAILY 07/16/21 07/16/21 Ondansetron Odt [Zofran] 4 mg TL Q6H PRN #10 tablet 07/16/21 Amoxicillin 500 mg PO TID #30 cap 07/27/21 HYDROcod/ACETAM 5/325 [[place] 5/325] 1 - 2 tab PO Q6H PRN #15 tablet 07/27/21 Ibuprofen [Motrin] 800 mg PO Q8H PRN #30 tablet 09/13/21 Triamcinolone 0.1% Oint 1 applic TOP BID #80 gm 09/13/21 Meloxicam [Mobic] 15 mg PO DAILY PRN #20 tablet 09/15/21 Penicillin V Potassium 500 mg PO Q6HR #40 tablet 09/15/21 Terbinafine [Lamisil] 250 mg PO DAILY #14 tablet 09/15/21 Naproxen [EC-Naproxen] 500 mg PO BID PRN #20 tab 10/03/21 Amox/Clav 875/125 [Augmentin] 1 each PO Q12H #20 tablet 11/15/21 - Allergies Allergies/Adverse Reactions: Allergies Allergy/AdvReac Type Severity Reaction Status Date / Time No Known Drug Allergies Allergy Verified 11/15/21 11:53 - Social History Does the pt smoke?: Yes Smoking Status: Current every day smoker Does the pt drink ETOH?: Yes Does the pt have substance abuse?: No - Immunizations Immunizations are current?: No Immunizations: TDAP >10years/unknown - POLST Patient has POLST: No PD ED PE NORMAL - Vitals Vital signs reviewed: Yes (hypertension) - General General: Alert and oriented X 3, No acute distress, Well developed/nourished, Other (individual with a large head) - HEENT HEENT: Atraumatic, PERRL, EOMI, Other (Left TM is inflamed with rounding of the umbo. ) - Neck Neck: Supple, no meningeal sign, No bony TTP - Cardiac Cardiac: RRR, No murmur - Respiratory Respiratory: No respiratory distress, Clear bilaterally - Abdomen Abdomen: Normal bowel sounds, Soft, Non tender, Non distended, No organomegaly - Back Back: No CVA TTP, No spinal TTP - Derm Derm: Normal color, Warm and dry, No rash - Extremities Extremities: No deformity, No edema - Neuro Neuro: Alert and oriented X 3, equal opportunity representative 2-12 intact, No motor deficit, No sensory deficit, Normal speech Eye Opening: Spontaneous Motor: Obeys Commands Verbal: Oriented GCS Score: 15 - Psych Psych: Normal mood, Normal affect Results - Vitals Vitals: Vital Signs - 24 hr 11/15/21 11:50 Temperature 36.5 C Heart Rate 96 Respiratory 16 Rate Blood Pressure 138/71 H O2 Saturation 100 Oxygen O2 Source Room air PD MEDICAL DECISION MAKING - ED course Complexity details: reviewed results, re-evaluated patient, considered differential, d/w patient ED course: 26 y/o male with week long history of headache with photophbia is found to have OM on exam and has some corresponding tenderness to the paraspinous muscles on the left neck. He is administered PO decadron and IM toradal. We will place him on a course of antibiotic for the OM. Departure - Departure Disposition: 01 Home, Self Care Clinical Impression: Headache Qualifiers: Headache type: tension-type Headache chronicity pattern: acute headache Intractability: not intractable Qualified Code(s): G44.209 - Tension-type heada moncho, unspecified, not intractable Otitis media Qualifiers: Otitis media type: suppurative Chronicity: acute Laterality: left Recurrence: not specified as recurrent Spontaneous tympanic membrane rupture: without spontaneous rupture Qualified Code(s): H66.002 - Acute suppurative otitis media without spontaneous rupture of ear drum, left ear Condition: Stable Instructions: ED Headache Tension, ED Otitis Media Acute Adult Follow-Up: Noel Meyers MD [Provider Admit Priv/Credential] - Prescriptions: Amox/Clav 875/125 [Augmentin] 1 each PO Q12H #20 tablet Comments: Sj today looks like you have a tension headache and you have infection in the left middle ear. I suspect this is contributing to your headache and I have E scribed a prescription for Augmentin to [facility] in [place]. Your pain should be tolerable now and the recommendation is to treat it with Tylenol or Advil before it gets out of control. Forms: Activity restrictions
== END 2021-11-15 14:01 | disposition home or self-care (01) ==
LOC: ED 11:36
DX: G44.209 Tension-type headache, unspecified, not intractable (principal); H66.002 Acute suppurative otitis media without spontaneous rupture of ear drum, left ear; F17.200 Nicotine dependence, unspecified, uncomplicated
CPT/HCPCS: 96372; 99283; A9270

== ENCOUNTER 2021-12-31 12:45 | Emergency (ER) | payer MEDICAID ==
--- NOTE | 2021-12-31 13:21 | ED Physician Documentation ---
PD HPI URI - Stated complaint Stated Complaint: FEVER/HEAD PX/CHILLS - Chief complaint Chief Complaint: Fever - History obtained from History obtained from: Patient - History of Present Illness Timing - onset: Yesterday Timing duration: Days (1) Timing details: Abrupt onset, Still present Associated symptoms: Fever, Chills, Ear pain (left), Nasal congestion, Sinus pain, Dry cough. No: Sore throat Contributing factors: No: Sick contact, Unimmunized, COPD / asthma Improves by: No: Medication (took Ibuprofen without improvement.) Similar symptoms before: Has not had sx before Recently seen: Not recently seen Review of Systems Constitutional: reports: Fever, Chills Ears: reports: Ear pain (left) Nose: reports: Rhinorrhea / runny nose, Congestion Throat: denies: Sore throat Respiratory: reports: Cough GI: reports: Nausea. denies: Vomiting, Diarrhea Neurologic: reports: Generalized weakness, Headache. denies: Focal weakness, Numbness, Altered mental status PD PAST MEDICAL HISTORY - Past Medical History Cardiovascular: None Respiratory: None Neuro: None Endocrine/Autoimmune: None GI: None : Kidney stones HEENT: None Psych: Depression, Anxiety, Panic attacks Musculoskeletal: None Derm: None - Past Surgical History Past Surgical History: Yes Ortho: Other - Present Medications Home Medications: Ambulatory Orders Medication Instructions Recorded Confirmed FLUoxetine [PROzac] 1 tab PO DAILY 07/16/21 12/31/21 Lurasidone HCl [Latuda] 10 mg PO DAILY 07/16/21 12/31/21 Cetirizine [ZyrTEC] 10 mg PO BID #15 tablet 12/31/21 Ibuprofen [Motrin] 600 mg PO TID PRN #25 tab 12/31/21 lamoTRIgine [Lamictal] 150 mg PO DAILY 12/31/21 12/31/21 traZODone [Desyrel] 150 mg PO HS PRN 12/31/21 12/31/21 - Allergies Allergies/Adverse Reactions: Allergies Allergy/AdvReac Type Severity Reaction Status Date / Time No Known Drug Allergies Allergy Verified 12/31/21 12:58 - Social History Does the pt smoke?: Yes Smoking Status: Current every day smoker Does the pt drink ETOH?: Yes Does the pt have substance abuse?: No - Immunizations Immunizations are current?: No Immunizations: TDAP >10years/unknown - POLST Patient has POLST: No PD ED PE NORMAL - Vitals Vital signs reviewed: Yes - General General: Alert and oriented X 3, No acute distress, Well developed/nourished - HEENT HEENT: Moist mucous membranes, Pharynx benign. No: Ears normal (right appears okay; left with some fluid pressure but no redness nor swelling around. ) - Neck Neck: Supple, no meningeal sign, No adenopathy - Cardiac Cardiac: RRR, No murmur - Respiratory Respiratory: Clear bilaterally - Abdomen Abdomen: Soft, Non tender - Derm Derm: Normal color, Warm and dry - Neuro Neuro: Alert and oriented X 3, No motor deficit, Normal speech Results - Vitals Vitals: Vital Signs - 24 hr 12/31/21 12/31/21 12:55 14:10 Temperature 36.3 C L 36.9 C Heart Rate 86 86 Respiratory 16 18 Rate Blood Pressure 125/68 119/63 O2 Saturation 99 98 Oxygen O2 Source Room air PD MEDICAL DECISION MAKING - ED course Complexity details: considered differential (onset yesterday of URI symptoms and aches. Left ear pain with some fluid but not redness. ), d/w patient Departure - Departure Disposition: 01 Home, Self Care Clinical Impression: Ear pain, left Upper respiratory infection Qualifiers: URI type: unspecified URI Qualified Code(s): J06.9 - Acute upper respiratory infection, unspecified Serous otitis media Qualifiers: Chronicity: acute Laterality: left Recurrence: non-recurrent Qualified Code(s): H65.02 - Acute serous otitis media, left ear Condition: Stable Instructions: ED Upper Resp Infec No Abx Tx Prescriptions: Ibuprofen [Motrin] 600 mg PO TID PRN #25 tab PRN Reason: Pain Cetirizine [ZyrTEC] 10 mg PO BID #15 tablet Comments: This sounds likely to be a viral illness. We have tested for Covid and the results should come back in a day or 2. There are other viral illnesses going around currently as well. Your ear shows some fluid behind the eardrum but does not look like a bacterial infection. I would treat it with some antihistamine cetirizine twice daily for a week. For fevers and pains you can use ibuprofen 3 times a day with food. To that add Tylenol if needed. Off work for the next few days while you are improving and also pending your Covid test result. If your Covid test comes back negative then you should be able to return to work as soon as you are feeling better and not need a prolonged restriction per se. Stay well-hydrated. I did send prescription for the higher strength ibuprofen along with the antihistamine to [facility] pharmacy in [place]. Forms: Activity restrictions Discharge Date/Time: 12/31/21 14:13
[2021-12-31] MEDS ORDERED: diphenhydrAMINE 25 MG CAPSULE PO STA (13:49)
[2021-12-31] MEDS ORDERED: IBUPROFEN 600 MG TABLET PO STA (13:49)
[2021-12-31] MEDS ORDERED: ACETAMINOPHEN 325 MG TABLET PO STA (13:49)
[2021-12-31 14:13] VITALS: BP 119/63
== END 2021-12-31 14:13 | disposition home or self-care (01) ==
LOC: ED 12:45
DX: H65.02 Acute serous otitis media, left ear (principal); J06.9 Acute upper respiratory infection, unspecified; F17.200 Nicotine dependence, unspecified, uncomplicated; Z20.822 Contact with and (suspected) exposure to COVID-19
CPT/HCPCS: 87635; 99283; A9270

== ENCOUNTER 2022-02-21 11:23 | Outpatient (CLI) | payer MEDICAID | END 2022-02-21 11:24 | disposition critical access hospital (66) | LOC: EMS 11:23 | DX: R07.9 Chest pain, unspecified (principal); F41.9 Anxiety disorder, unspecified | CPT/HCPCS: A0425; A0429; A0999 ==

== ENCOUNTER 2022-02-21 11:41 | Emergency (ER) | payer MEDICAID ==
[2022-02-21 12:06] LABS: BASOPHILS # (AUTO) 0.1 10^3/uL (0.0-0.1); BASOPHILS % (AUTO) 0.9 %; EOSINOPHILS # (AUTO) 0.4 10^3/uL (0.0-0.7); EOSINOPHILS % (AUTO) 7.2 %; HGB - HEMOGLOBIN 14.3 g/dL (14.0-18.0); LYMPHOCYTES # (AUTO) 1.5 10^3/uL (1.5-3.5); LYMPHOCYTES % (AUTO) 27.5 %; MEAN CORPUSCULAR HGB CONC 34.9 g/dL (32.0-36.0); MEAN PLATELET VOLUME 10.3 fL (7.4-11.4); MONOCYTES # (AUTO) 0.4 10^3/uL (0.0-1.0); MONOCYTES % (AUTO) 7.4 %; NEUTROPHILS # (AUTO) 3.2 10^3/uL (1.5-6.6); NEUTROPHILS % (AUTO) 56.6 %; PLT - PLATELET COUNT 216 10^3/uL (130-450); RED BLOOD COUNT 4.77 10^6/uL (4.70-6.10); WHITE BLOOD COUNT 5.6 x10^3/uL (4.8-10.8)
[2022-02-21] MEDS ORDERED: LORazepam 2 MG/ML VIAL IVP STA (12:15)
--- NOTE | 2022-02-21 12:16 | ED Physician Documentation ---
PD HPI CHEST PAIN - Stated complaint Stated Complaint: CHEST PAIN - Chief complaint Chief Complaint: Cardiac - History obtained from History obtained from: Patient - Additional information Additional information: 27-year-old gentleman with history of anxiety and PTSD. He presents with sudden onset substernal chest pain that he describes as a combination of stabbing and burning starting at 11 AM while lifting boxes at work. He is got an odd nonpainful feeling like something moving in his back and gum pain on the lower left. He had a dark tarry stool yesterday. He denies nausea or shortness of breath. Family history is notable for a father that developed coronary disease at age 58. Risk factors are notable for smoking. No recent travel. Review of Systems Ten Systems: 10 systems reviewed and negative Constitutional: denies: Fever, Chills Nose: denies: Rhinorrhea / runny nose, Congestion Cardiac: reports: Chest pain / pressure. denies: Palpitations Respiratory: denies: Dyspnea, Cough PD PAST MEDICAL HISTORY - Past Medical History Cardiovascular: None Respiratory: None Neuro: None Endocrine/Autoimmune: None GI: None : Kidney stones HEENT: None Psych: Depression, Anxiety, Panic attacks Musculoskeletal: None Derm: None - Past Surgical History Past Surgical History: Yes Ortho: Other - Present Medications Home Medications: Ambulatory Orders Medication Instructions Recorded Confirmed FLUoxetine [PROzac] 1 tab PO DAILY 07/16/21 02/21/22 Lurasidone HCl [Latuda] 10 mg PO DAILY 07/16/21 02/21/22 Cetirizine [ZyrTEC] 10 mg PO BID #15 tablet 12/31/21 02/21/22 Ibuprofen [Motrin] 600 mg PO TID PRN #25 tab 12/31/21 02/21/22 lamoTRIgine [Lamictal] 150 mg PO DAILY 12/31/21 02/21/22 traZODone [Desyrel] 150 mg PO HS PRN 12/31/21 02/21/22 Omeprazole 40 mg PO DAILY #30 cap 02/21/22 - Allergies Allergies/Adverse Reactions: Allergies Allergy/AdvReac Type Severity Reaction Status Date / Time No Known Drug Allergies Allergy Verified 02/21/22 11:47 - Social History Does the pt smoke?: Yes Smoking Status: Current every day smoker Does the pt drink ETOH?: Yes Does the pt have substance abuse?: No - Immunizations Immunizations are current?: No Immunizations: TDAP >10years/unknown - POLST Patient has POLST: No PD ED PE NORMAL - Vitals Vital signs reviewed: Yes - General General: Alert and oriented X 3, No acute distress - HEENT HEENT: Other (Generally poor dentition with gingivitis. He was counseled on dental care.) - Neck Neck: Supple, no meningeal sign, No bony TTP - Cardiac Cardiac: RRR, No murmur, Strong equal pulses (Equal radial pulses), Other (Tender anterior chest wall which reproduces his pain) - Respiratory Respiratory: No respiratory distress, Clear bilaterally - Abdomen Abdomen: Non tender - Back Back: No CVA TTP, No spinal TTP - Derm Derm: Normal color, Warm and dry - Extremities Extremities: No edema, No calf tenderness / cord - Neuro Neuro: Alert and oriented X 3, Normal speech Results - Vitals Vitals: Vital Signs - 24 hr 02/21/22 02/21/22 11:45 11:47 Temperature 36.8 C 36.8 C Heart Rate 66 66 Respiratory 17 17 Rate Blood Pressure 120/74 120/74 O2 Saturation 98 98 Oxygen O2 Source Room air - EKG (time done) 1146 Rate: Rate (enter#) (65) Rhythm: NSR [place]: Normal Intervals: Normal UT QRS: Normal Ischemia: Normal ST segments - Labs Labs: Laboratory Tests 02/21/22 02/21/22 02/21/22 11:50 11:50 11:50 WBC 5.6 RBC 4.77 Hgb 14.3 Hct 41.0 L MCV 86.0 MCH 30.0 MCHC 34.9 RDW 12.0 Plt Count 216 MPV 10.3 Neut # (Auto) 3.2 Lymph # (Auto) 1.5 Chambers # (Auto) 0.4 Eos # (Auto) 0.4 Baso # (Auto) 0.1 Absolute Nucleated RBC 0.00 Nucleated RBC % 0.0 Sodium 137 Potassium 4.0 Chloride 105 Carbon Dioxide 23 Anion Gap 9.0 BUN 10 Creatinine 0.7 Estimated GFR (MDRD) 133 Glucose 106 H Calcium 8.9 Total Bilirubin 0.8 AST 21 ALT 22 Alkaline Phosphatase 88 Troponin I High Sens < 2.3 L Total Protein 6.4 L Albumin 4.3 Globulin 2.1 Albumin/Globulin Ratio 2.0 Lipase 34 PD MEDICAL DECISION MAKING - ED course ED course: 27-year-old gentleman presents with chest pain. Heart score 1 for smoking. He had a dark tarry stool yesterday but his H&H is fine and no dark or tarry stools today. He thinks his symptoms are related to anxiety and was feeling better after Ativan. Departure - Departure Disposition: Home, Self Care Clinical Impression: Chest pain Qualifiers: Chest pain type: unspecified Qualified Code(s): R07.9 - Chest pain, unspecified Condition: Good Record reviewed to determine appropriate education?: Yes Instructions: ED Chest Pain NonCardiac Prescriptions: Omeprazole 40 mg PO DAILY #30 cap Comments: Cause of your chest pain could be from muscular strain or reflux/gastritis. I am writing a prescription for medicine for stomach acid. Follow-up with your doctor within the week for recheck calling calling today for an appointment. Return if worse. Heart testing and other basic testing looks fine. Do not drive today. Forms: Activity restrictions
[2022-02-21 12:22] LABS: ALBUMIN 4.3 g/dL (3.2-5.5); BILIRUBIN,TOTAL 0.8 mg/dL (0.2-1.0); CALCIUM 8.9 mg/dL (8.5-10.3); CREATININE 0.7 mg/dL (0.6-1.2); TOTAL PROTEIN 6.4 g/dL (6.7-8.2)
--- NOTE | 2022-02-21 12:58 | XRAY Report ---
PROCEDURE: Chest 1 View X-Ray INDICATIONS: Chest Pain TECHNIQUE: One view of the chest was acquired. COMPARISON: None FINDINGS: Surgical changes and devices: None. Lungs and pleura: No pleural effusions or pneumothorax. Lungs are clear. Mediastinum: Mediastinal contours appear normal. Heart size is normal. Bones and chest wall: No suspicious bony lesions. Overlying soft tissues appear unremarkable. IMPRESSION: No acute process. Reviewed by: Chencho Martinez MD on 02/21/2022 12:56 PM PDT Approved by: Chencho Martinez MD on 02/21/2022 12:56 PM PDT Station ID: [id number]
[2022-02-21 13:43] VITALS: BP 120/80
== END 2022-02-21 13:41 | disposition home or self-care (01) ==
LOC: ED 11:41
DX: R07.89 Other chest pain (principal); F17.200 Nicotine dependence, unspecified, uncomplicated
CPT/HCPCS: 36415; 71045; 80053; 83690; 84484; 85025; 93005; 96374; 99284; J2060

== ENCOUNTER 2022-02-22 10:33 | Outpatient (CLI) | payer MEDICAID ==
[2022-02-22 17:51] LABS: BASOPHILS # (AUTO) 0.1 10^3/uL (0.0-0.1); BASOPHILS % (AUTO) 0.8 %; EOSINOPHILS # (AUTO) 0.3 10^3/uL (0.0-0.7); HCT - HEMATOCRIT 44.8 % (42.0-52.0); HGB - HEMOGLOBIN 15.2 g/dL (14.0-18.0); LYMPHOCYTES # (AUTO) 1.7 10^3/uL (1.5-3.5); LYMPHOCYTES % (AUTO) 26.9 %; MEAN CORPUSCULAR HEMOGLOBIN 29.7 pg (27.0-31.0); MEAN CORPUSCULAR HGB CONC 33.9 g/dL (32.0-36.0); MEAN CORPUSCULAR VOLUME 87.7 fL (80.0-94.0); MEAN PLATELET VOLUME 10.8 fL (7.4-11.4); MONOCYTES # (AUTO) 0.4 10^3/uL (0.0-1.0); MONOCYTES % (AUTO) 6.4 %; NEUTROPHILS # (AUTO) 3.9 10^3/uL (1.5-6.6); NEUTROPHILS % (AUTO) 60.7 %; PLT - PLATELET COUNT 234 10^3/uL (130-450); RED BLOOD COUNT 5.11 10^6/uL (4.70-6.10); RED CELL DISTRIBUTION WIDTH 12.4 % (12.0-15.0); WHITE BLOOD COUNT 6.4 x10^3/uL (4.8-10.8)
[2022-02-22 18:22] LABS: THYROID STIMULATING HORMONE 1.14 uIU/mL (0.34-5.60)
[2022-02-22 18:30] LABS: ALBUMIN 4.5 g/dL (3.2-5.5); ALBUMIN/GLOBULIN RATIO 1.9 (1.0-2.2); ALKALINE PHOSPHATASE 90 IU/L (42-121); ALT ALANINE AMINOTRANSFERASE 24 IU/L (10-60); AST ASPARTATE AMINOTRANSFERASE 21 IU/L (10-42); BILIRUBIN,TOTAL 0.7 mg/dL (0.2-1.0); BUN - BLOOD UREA NITROGEN 14 mg/dL (6-20); CALCIUM 9.1 mg/dL (8.5-10.3); CARBON DIOXIDE - CO2 26 mmol/L (21-32); CHLORIDE 104 mmol/L (101-111); CHOL/HDL RATIO 4.3 (<5.0); CHOLESTEROL 188 mg/dL; CREATININE 0.8 mg/dL (0.6-1.2); GFR - MDRD 114 (>89); GLUCOSE 103 mg/dL (70-100); HDL CHOLESTEROL 44 mg/dL; LDL CHOLESTEROL,CALCULATED 133 mg/dL; POTASSIUM 4.2 mmol/L (3.5-5.0); SODIUM 137 mmol/L (135-145); TOTAL PROTEIN 6.9 g/dL (6.7-8.2); TRIGLYCERIDES 55 mg/dL; VLDL CHOLESTEROL 11 mg/dL
[2022-02-22 20:38] LABS: ESTIMATED AVERAGE GLUCOSE 85 mg/dL (70-100); HEMOGLOBIN A1c% 4.6 % (4.27-6.07)
== END 2022-02-22 10:34 | disposition home or self-care (01) ==
LOC: LAB.N 10:33
PROVIDERS: ATTEND Nurse Practitioner Family
DX: E66.9 Obesity, unspecified (principal); E55.9 Vitamin D deficiency, unspecified; R61 Generalized hyperhidrosis
CPT/HCPCS: 36415; 80053; 80061; 82306; 83036; 83721; 84443; 85025

== ENCOUNTER 2022-03-04 08:00 | Outpatient (CLI) | payer MEDICAID | END 2022-03-04 23:59 | disposition home or self-care (01) | LOC: LAB.N 08:00 | PROVIDERS: ATTEND Nurse Practitioner Family | DX: J06.9 Acute upper respiratory infection, unspecified (principal); Z20.822 Contact with and (suspected) exposure to COVID-19 ==

== ENCOUNTER 2022-11-04 18:04 | Outpatient (CLI) | payer OTHER, MEDICAID | END 2022-11-04 18:05 | disposition critical access hospital (66) | LOC: EMS 18:04 | DX: R07.9 Chest pain, unspecified (principal); R10.11 Right upper quadrant pain; R45.851 Suicidal ideations | CPT/HCPCS: A0425; A0429 ==

== ENCOUNTER 2022-11-04 18:30 | Emergency (ER) | payer OTHER, MEDICAID ==
--- OUTSIDE RECORDS SUMMARY | 2022-11-04 19:09 | EXTERNAL MEDICAL SUMMARY RPT | Continuity of Care Document ---
:1995 Author Organization [facility] Address [address] [place] [address] Phone Care Team Providers Name Role Phone Fareed Hoskins Unavailable Unavailable Stella Perry Unavailable Unavailable Allergies and Intolerances date description facility type (no date) No Known Drug Allergies [facility] ([facility] own) Encounters No information. Functional Status No information. Immunizations No information. Medications date description facility 2022-10-16 00[facility] date description facility 2022-09-15 00:[address] [facility] 2022-09-15 00:[address] [facility] 2022-09-30 11:14 Unspecified injury of left shoulder and upper [facility] arm, initial e 2022-10-16 00:[address] [facility] Procedures date description facility 2022-09-15 00:00 XR shoulder left, 2+ views [facility] 2022-09-15 00:00 XR shoulder left, 2+ views [facility] Results/Labs test date author facility value unit interpret ation Result panel 1 (unknown) (no date[facility]) Result panel 2 (unknown) (no date) (unknown[facility]) Result panel 3 (unknown) (no date) (unknown[facility]) Result panel 4 (unknown) (no date) (unknown[facility]) Result panel 5 (unknown) (no date) (unknown[facility]) Result panel 6 (unknown) (no date) (unknown[facility]) Result panel 7 (unknown) (no date) (unknown[facility]) Result panel 8 (unknown) (no date) (unknown[facility]) Result panel 9 (unknown) (no date) (unknown[facility]) Result panel 10 (unknown) (no date) (unknown[facility]) Result panel 11 (unknown) (no date) (unknown[facility]) Result panel 12 (unknown) (no date) (unknown[facility]) Result panel 13 (unknown) (no date) (unknown[facility]) Result panel 14 (unknown) (no date) (unknown[facility]) Result panel 15 (unknown) (no date) (unknown[facility]) Result panel 16 (unknown) (no date) (unknown[facility]) Result panel 17 (unknown) (no date) (unknown[facility]) Result panel 18 (unknown) (no date) (unknown[facility]) Result panel 19 (unknown) (no date) (unknown[facility]) Result panel 20 (unknown) (no date) (unknown[facility]) Result panel 21 (unknown) (no date) (unknown[facility]) Result panel 22 (unknown) (no date) (unknown[facility]) Result panel 23 (unknown) (no date) (unknown[facility]) Result panel 24 (unknown) (no date) (unknown[facility]) Result panel 25 (unknown) (no date) (unknown[facility]) Result panel 26 (unknown) (no date) (unknown[facility]) Result panel 27 (unknown) (no date) (unknown[facility]) Result panel 28 (unknown) (no date) (unknown[facility]) Result panel 29 (unknown) (no date) (unknown[facility]) Result panel 30 (unknown) (no date) (unknown[facility]) Result panel 31 (unknown) (no date) (unknown[facility]) Result panel 32 (unknown) (no date) (unknown[facility]) Result panel 33 (unknown) (no date) (unknown[facility]) Result panel 34 (unknown) (no date) (unknown) [facility]) Result panel 35 (unknown) (no date) (unknown[facility]) Result panel 36 (unknown) (no date) (unknown[facility]) Result panel 37 (unknown) (no date) (unknown[facility]) Result panel 38 (unknown) (no date) (unknown[facility]) Result panel 39 (unknown) (no date) (unknown[facility]) Result panel 40 (unknown) (no date) (unknown[facility]) Result panel 41 (unknown) (no date) (unknown[facility]) Result panel 42 (unknown) (no date) (unknown[facility]) Result panel 43 (unknown) (no date) (unknown[facility]) Result panel 44 (unknown) (no date) (unknown[facility]) Result panel 45 (unknown) (no date) (unknown[facility]) Result panel 46 (unknown) (no date) (unknown[facility]) Result panel 47 (unknown) (no date) (unknown[facility]) Result panel 48 (unknown) (no date) (unknown[facility]) Result panel 49 (unknown) (no date) (unknown[facility]) Result panel 50 (unknown) (no date) (unknown) [facility]) Result panel 51 (unknown) (no date) (unknown) [facility]) Result panel 52 (unknown) (no date) (unknown) [facility]) Result panel 53 (unknown) (no date) (unknown) [facility]) Result panel 54 (unknown) (no date) (unknown[facility]) Result panel 55 (unknown) (no date) (unknown[facility]) Result panel 56 (unknown) (no date) (unknown[facility]) Result panel 57 (unknown) (no date) (unknown[facility]) Result panel 58 (unknown) (no date) (unknown[facility]) Result panel 59 (unknown) (no date) (unknown[facility]) Result panel 60 (unknown) (no date) (unknown[facility]) Result panel 61 (unknown) (no date) (unknown[facility]) Result panel 62 (unknown) (no date) (unknown[facility]) Result panel 63 (unknown) (no date) (unknown[facility]) Result panel 64 (unknown) (no date) (unknown) [facility]) Result panel 65 (unknown) (no date) (unknown) [facility]) Result panel 66 (unknown) (no date) (unknown) [facility]) Result panel 67 (unknown) (no date) (unknown) [facility]) Result panel 68 (unknown) (no date) (unknown[facility]) Result panel 69 (unknown) (no date) (unknown[facility]) Result panel 70 (unknown) (no date) (unknown[facility]) Result panel 71 (unknown) (no date) (unknown[facility]) Result panel 72 (unknown) (no date) (unknown[facility]) Result panel 73 (unknown) (no (unknown) (unknown) (no value) (units (unk nown) date) unknown) (unknown) (no (unknown) (unknown) [id number] (units (unkno wn) date) unknown) (unknown) (no (unknown) (unknown) 09/15/22 13:09 (units (unknown) date) unknown) (unknown) (no (unknown) (unknown) 09/15/22 (units (unkno wn) date) unknown) (unknown) (no (unknown) (unknown) 11:23 (units (unkno wn) date) unknown) (unknown) (no (unknown) (unknown) 12 point review (units (unknown) date) of systems is unknown) negative except for those stated above (unknown) (no (unknown) (unknown) Age/Sex: 27 / M (units (unknown) date) unknown) (unknown) (no (unknown) (unknown) Allergies (units (unkn own) date) unknown) (unknown) (no (unknown) (unknown) Allergy/AdvReac (units (unknown) date) Type Severity unknown) Reaction Status Date / Time (unknown) (no (unknown) (unknown) BACK: Nontender (units (unknown) date) without deformity unknown) or crepitance. No flank tenderness. (unknown) (no (unknown) (unknown) Blood Pressure (units (unknown) date) 141/85 H 09/15/22 unknown) 11:23 (unknown) (no (unknown) (unknown) Blood Pressure (units (unknown) date) 141/85 H unknown) (unknown) (no (unknown) (unknown) CARDIOVASCULAR: (units (unknown) date) Denies chest pain, unknown) palpitations, orthopnea, edema, (unknown) (no (unknown) (unknown) Stella Perry, (units (unknown) date) 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 [Primary Care unknown) Provider] (unknown) (no (unknown) (unknown) Chief Complaint: (units (unknown) date) Extremity Injury, unknown) Upper (unknown) (no (unknown) (unknown) Course (units (unkno wn) date) unknown) (unknown) (no (unknown) (unknown) : 1995 (units (unknown) date) Acct:[id number] unknown) (unknown) (no (unknown) (unknown) Date of Service: (units (unknown) date) 09/15/22 unknown) (unknown) (no (unknown) (unknown) Departure (units (unkn own) date) unknown) (unknown) (no (unknown) (unknown) Discharge Plan (units (unknown) date) unknown) (unknown) (no (unknown) (unknown) ED Orders (units (unkn own) date) unknown) (unknown) (no (unknown) (unknown) ER Physician: (units ( unknown) date) Imer VelizA-Humphrey unknown) (unknown) (no (unknown) (unknown) EXTREMITIES: Mild (units (unknown) date) tenderness to unknown) palpation to the posterior left shoulder as (unknown) (no (unknown) (unknown) EYES: Pupils (units (u nknown) date) equal round and unknown) reactive. Extraocular motions intact. No scleral (unknown) (no (unknown) (unknown) Emergency Report (units (unknown) date) unknown) (unknown) (no (unknown) (unknown) Exam Narrative: (units (unknown) date) unknown) (unknown) (no (unknown) (unknown) Exam (units (unkno wn) date) unknown) (unknown) (no (unknown) (unknown) GASTROINTESTINAL: (units (unknown) date) Denies nausea, unknown) vomiting, abdominal pain, diarrhea, (unknown) (no (unknown) (unknown) GENERAL: Denies (units (unknown) date) chills, fatigue, unknown) malaise, fever, sweats. (unknown) (no (unknown) (unknown) GENERAL: (units (unkno wn) date) Well-developed unknown) patient, in mild distress. (unknown) (no (unknown) (unknown) : Denies (units (unk nown) date) dysuria, unknown) frequency, incontinence, hematuria, urinary retention. (unknown) (no (unknown) (unknown) General (units (unkno wn) date) unknown) (unknown) (no (unknown) (unknown) HEAD: Atraumatic. (units (unknown) date) Normocephalic. unknown) (unknown) (no (unknown) (unknown) HEENT: Denies (units ( unknown) date) sinus pain, ear unknown) pain, sore throat, difficulty swallowing, (unknown) (no (unknown) (unknown) HPI - Extremity (units (unknown) date) Injury (Upper) unknown) (unknown) (no (unknown) (unknown) HPI narrative: (units (unknown) date) unknown) (unknown) (no (unknown) (unknown) History of (units (unk nown) date) Present Illness unknown) (unknown) (no (unknown) (unknown) Initial Vital (units ( unknown) date) Signs unknown) (unknown) (no (unknown) (unknown) Initial Vital (units ( unknown) date) Signs: unknown) (unknown) (no (unknown) (unknown) [facility] (units (unknown) date) [address] unknown) [place] [address] (unknown) (no (unknown) (unknown) MUSCULOSKELETAL: (units (unknown) date) Left shoulder pain unknown) (unknown) (no (unknown) (unknown) Medical History (units (unknown) date) (Reviewed 09/21/21 unknown) @ 18:14 by Fareed Hoskins DO) (unknown) (no (unknown) (unknown) Mode of arrival: (units (unknown) date) Ambulatory unknown) (unknown) (no (unknown) (unknown) NEURO: AOx3. (units (u nknown) date) unknown) (unknown) (no (unknown) (unknown) NEUROLOGIC: (units (un known) date) Denies weakness, unknown) headache, numbness, change in speech, confusion, (unknown) (no (unknown) (unknown) Narrative (units (unkn own) date) unknown) (unknown) (no (unknown) (unknown) Narrative: (units (unk nown) date) unknown) (unknown) (no (unknown) (unknown) No Known Drug (units ( unknown) date) Allergies Allergy unknown) Verified 09/21/21 12:43 (unknown) (no (unknown) (unknown) No weakness or (units (unknown) date) any other unknown) concerning signs or symptoms. (unknown) (no (unknown) (unknown) Ordered: (units (unkno wn) date) unknown) (unknown) (no (unknown) (unknown) Orders (units (unkno wn) date) unknown) (unknown) (no (unknown) (unknown) Oxygen Delivery (units (unknown) date) Method 09/15/22 unknown) 11:23 (unknown) (no (unknown) (unknown) Oxygen Delivery (units (unknown) date) Method Room Air unknown) (unknown) (no (unknown) (unknown) PSYCHIATRIC: No (units (unknown) date) concerning unknown) psychosocial issues. (unknown) (no (unknown) (unknown) Patient History (units (unknown) date) unknown) (unknown) (no (unknown) (unknown) Patient denies (units (unknown) date) medical problems unknown) (unknown) (no (unknown) (unknown) Patient: (units (unkno wn) date) Fouzia Simmons unknown) MR#: [id number] (unknown) (no (unknown) (unknown) Pulse Oximetry (units (unknown) date) 100 09/15/22 11:23 unknown) (unknown) (no (unknown) (unknown) Pulse Oximetry (units (unknown) date) 100 unknown) (unknown) (no (unknown) (unknown) Pulse Rate 73 (units ( unknown) date) 09/15/22 11:23 unknown) (unknown) (no (unknown) (unknown) Pulse Rate 73 (units ( unknown) date) unknown) (unknown) (no (unknown) (unknown) RESPIRATORY: (units (u nknown) date) Denies dyspnea, unknown) cough, wheezing, hemoptysis, sputum. (unknown) (no (unknown) (unknown) Referrals: (units (unk nown) date) unknown) (unknown) (no (unknown) (unknown) Related Data (units (u nknown) date) unknown) (unknown) (no (unknown) (unknown) Respiratory Rate (units (unknown) date) 15 09/15/22 11:23 unknown) (unknown) (no (unknown) (unknown) Respiratory Rate (units (unknown) date) 15 unknown) (unknown) (no (unknown) (unknown) Review of Systems (units (unknown) date) unknown) (unknown) (no (unknown) (unknown) SKIN: Denies (units (u nknown) date) rash, skin unknown) lesions, or other (unknown) (no (unknown) (unknown) SKIN: No rash or (units (unknown) date) erythema of unknown) visible areas (unknown) (no (unknown) (unknown) Signed By: (units (unk nown) date) unknown) (unknown) (no (unknown) (unknown) Smoking Status: (units (unknown) date) Current every day unknown) smoker (unknown) (no (unknown) (unknown) Social History (units (unknown) date) (Reviewed 09/21/21 unknown) @ 18:14 by Fareed Hoskins DO) (unknown) (no (unknown) (unknown) Source: patient (units (unknown) date) unknown) (unknown) (no (unknown) (unknown) Stated Complaint: (units (unknown) date) shoulder + neck unknown) injury from work 09/12 (unknown) (no (unknown) (unknown) Substance Use (units ( unknown) date) Type: marijuana unknown) (unknown) (no (unknown) (unknown) Temperature 97.3 (units (unknown) date) F L 09/15/22 11:23 unknown) (unknown) (no (unknown) (unknown) Temperature 97.3 (units (unknown) date) F L unknown) (unknown) (no (unknown) (unknown) This is a (units (unkn own) date) 27-year-old male unknown) presents to the emergency department complaining of (unknown) (no (unknown) (unknown) Time Seen by (units (u nknown) date) Provider: 09/15/22 unknown) 12:37 (unknown) (no (unknown) (unknown) Vital Signs - 8 (units (unknown) date) hr unknown) (unknown) (no (unknown) (unknown) Vital Signs (units (un known) date) unknown) (unknown) (no (unknown) (unknown) Vital signs: (units (u nknown) date) unknown) (unknown) (no (unknown) (unknown) XR scapula LT (units ( unknown) date) Stat unknown) (unknown) (no (unknown) (unknown) XR shoulder LT (units (unknown) date) min 2V Stat unknown) (unknown) (no (unknown) (unknown) alcohol intake (units (unknown) date) frequency: unknown) holidays/special occasions only (unknown) (no (unknown) (unknown) constipation, (units ( unknown) date) melena. unknown) (unknown) (no (unknown) (unknown) dizziness. (units (unk nown) date) unknown) (unknown) (no (unknown) (unknown) icterus. No (units (un known) date) injection or unknown) drainage. (unknown) (no (unknown) (unknown) left shoulder (units ( unknown) date) pain onset 4 days unknown) ago after rising up in his left shoulder on a (unknown) (no (unknown) (unknown) metal machine. (units (unknown) date) Denies any unknown) numbness in the left upper extremity but states that (unknown) (no (unknown) (unknown) seizures, (units (unkn own) date) incoordination. unknown) (unknown) (no (unknown) (unknown) there is a (units (unk nown) date) significant amount unknown) of pain to the left shoulder and scapular area. (unknown) (no (unknown) (unknown) well as left (units (u nknown) date) scapula, unknown) neurovascularly intact throughout Result panel 74 (unknown) (no (unknown) (unknown) (no value) (units (unk nown) date) unknown) (unknown) (no (unknown) (unknown) [id number] (units (unkno wn) date) unknown) (unknown) (no (unknown) (unknown) 09/15/22 13:09 (units (unknown) date) unknown) (unknown) (no (unknown) (unknown) 09/15/22 (units (unkno wn) date) unknown) (unknown) (no (unknown) (unknown) 11:23 (units (unkno wn) date) unknown) (unknown) (no (unknown) (unknown) 12 point review (units (unknown) date) of systems is unknown) negative except for those stated above (unknown) (no (unknown) (unknown) [address] [place] [address] (units (unknown) date) unknown) (unknown) (no (unknown) (unknown) ? (units (unkno wn) date) unknown) (unknown) (no (unknown) (unknown) Accession Number: (units (unknown) date) [id number] ?? unknown) (unknown) (no (unknown) (unknown) Acct:[id number] (units (unknown) date) unknown) (unknown) (no (unknown) (unknown) Activity (units (unkno wn) date) Restrictions/Addit unknown) ional Instructions: (unknown) (no (unknown) (unknown) Age/Sex: 27 / M (units (unknown) date) unknown) (unknown) (no (unknown) (unknown) Allergies (units (unkn own) date) unknown) (unknown) (no (unknown) (unknown) Allergy/AdvReac (units (unknown) date) Type Severity unknown) Reaction Status Date / Time (unknown) (no (unknown) (unknown) AWAIS Patel (units ( unknown) date) [id number] unknown) (unknown) (no (unknown) (unknown) Approved by: (units (u nknown) date) Jen Arreguin M.D. unknown) on 09/15/2022 at 13:35 ? (unknown) (no (unknown) (unknown) BACK: Nontender (units (unknown) date) without deformity unknown) or crepitance. No flank tenderness. (unknown) (no (unknown) (unknown) Blood Pressure (units (unknown) date) 141/85 H 09/15/22 unknown) 11:23 (unknown) (no (unknown) (unknown) Blood Pressure (units (unknown) date) 141/85 H unknown) (unknown) (no (unknown) (unknown) Blunt force (units (un known) date) injury unknown) (unknown) (no (unknown) (unknown) Bones:? No (units (unk nown) date) fractures or unknown) dislocations.? No suspicious bony lesions.? Visualized (unknown) (no (unknown) (unknown) CARDIOVASCULAR: (units (unknown) date) Denies chest pain, unknown) palpitations, orthopnea, edema, (unknown) (no (unknown) (unknown) COMPARISON:? (units (u nknown) date) None. 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 [Primary Care unknown) Provider] (unknown) (no (unknown) (unknown) Chief Complaint: (units (unknown) date) Extremity Injury, unknown) Upper (unknown) (no (unknown) (unknown) Clinical (units (unkno wn) date) Impression: unknown) (unknown) (no (unknown) (unknown) Course (units (unkno wn) date) unknown) (unknown) (no (unknown) (unknown) : 1995 (units (unknown) date) Acct:[id number] unknown) (unknown) (no (unknown) (unknown) : 1995 (units (unknown) date) unknown) (unknown) (no (unknown) (unknown) Date of Service: (units (unknown) date) 09/15/22 unknown) (unknown) (no (unknown) (unknown) Departure (units (unkn own) date) unknown) (unknown) (no (unknown) (unknown) Dictated by: (units (u nknown) date) Jen Arreguin M.D. unknown) on 09/15/2022 at 13:34 ? ? (unknown) (no (unknown) (unknown) Discharge Plan (units (unknown) date) unknown) (unknown) (no (unknown) (unknown) ED Orders (units (unkn own) date) unknown) (unknown) (no (unknown) (unknown) ER Physician: (units ( unknown) date) Imer Veliz P.A-C unknown) (unknown) (no (unknown) (unknown) EXTREMITIES: Mild (units (unknown) date) tenderness to unknown) palpation to the posterior left shoulder as (unknown) (no (unknown) (unknown) EYES: Pupils (units (u nknown) date) equal round and unknown) reactive. Extraocular motions intact. No scleral (unknown) (no (unknown) (unknown) Emergency Report (units (unknown) date) unknown) (unknown) (no (unknown) (unknown) Exam Narrative: (units (unknown) date) unknown) (unknown) (no (unknown) (unknown) Exam (units (unkno wn) date) unknown) (unknown) (no (unknown) (unknown) Extremity x-ray (units (unknown) date) #1: unknown) (unknown) (no (unknown) (unknown) FINDINGS:? (units (unk nown) date) unknown) (unknown) (no (unknown) (unknown) GASTROINTESTINAL: (units (unknown) date) Denies nausea, unknown) vomiting, abdominal pain, diarrhea, (unknown) (no (unknown) (unknown) GENERAL: Denies (units (unknown) date) chills, fatigue, unknown) malaise, fever, sweats. (unknown) (no (unknown) (unknown) GENERAL: (units (unkno wn) date) Well-developed unknown) patient, in mild distress. (unknown) (no (unknown) (unknown) : Denies (units (unk nown) date) dysuria, unknown) frequency, incontinence, hematuria, urinary retention. (unknown) (no (unknown) (unknown) General (units (unkno wn) date) unknown) (unknown) (no (unknown) (unknown) HEAD: Atraumatic. (units (unknown) date) Normocephalic. unknown) (unknown) (no (unknown) (unknown) HEENT: Denies (units ( unknown) date) sinus pain, ear unknown) pain, sore throat, difficulty swallowing, (unknown) (no (unknown) (unknown) HPI - Extremity (units (unknown) date) Injury (Upper) unknown) (unknown) (no (unknown) (unknown) HPI narrative: (units (unknown) date) unknown) (unknown) (no (unknown) (unknown) History of (units (unk nown) date) Present Illness unknown) (unknown) (no (unknown) (unknown) I hope you feel (units (unknown) date) better soon. unknown) (unknown) (no (unknown) (unknown) IMPRESSION:? No (units (unknown) date) visualized acute unknown) fracture or dislocation. However, if clinical (unknown) (no (unknown) (unknown) INDICATIONS:? L (units (unknown) date) shoulder pain/sp unknown) trauma (unknown) (no (unknown) (unknown) Imaging Data (units (u nknown) date) unknown) (unknown) (no (unknown) (unknown) Initial Vital (units ( unknown) date) Signs unknown) (unknown) (no (unknown) (unknown) Initial Vital (units ( unknown) date) Signs: unknown) (unknown) (no (unknown) (unknown) [facility] (units (unknown) date) [address] [place] [address] unknown) [place] [address] (unknown) (no (unknown) (unknown) [facility] (units (unknown) date) unknown) (unknown) (no (unknown) (unknown) Loc: ED (units (unkno wn) date) unknown) (unknown) (no (unknown) (unknown) MDM - Extremity (units (unknown) date) Injury (Upper) unknown) (unknown) (no (unknown) (unknown) MDM Narrative (units ( unknown) date) unknown) (unknown) (no (unknown) (unknown) MR#: [id number] (units (unknown) date) unknown) (unknown) (no (unknown) (unknown) MUSCULOSKELETAL: (units (unknown) date) Left shoulder pain unknown) (unknown) (no (unknown) (unknown) Medical History (units (unknown) date) (Reviewed 09/21/21 unknown) @ 18:14 by Fareed Hoskins DO) (unknown) (no (unknown) (unknown) Medical decision (units (unknown) date) making narrative: unknown) (unknown) (no (unknown) (unknown) Mode of arrival: (units (unknown) date) Ambulatory unknown) (unknown) (no (unknown) (unknown) NEURO: AOx3. (units (u nknown) date) unknown) (unknown) (no (unknown) (unknown) NEUROLOGIC: (units (un known) date) Denies weakness, unknown) headache, numbness, change in speech, confusion, (unknown) (no (unknown) (unknown) Narrative (units (unkn own) date) unknown) (unknown) (no (unknown) (unknown) Narrative: (units (unk nown) date) unknown) (unknown) (no (unknown) (unknown) Neurovascularly (units (unknown) date) intact throughout. unknown) Recommended symptomatic and conservative (unknown) (no (unknown) (unknown) No Known Drug (units ( unknown) date) Allergies Allergy unknown) Verified 09/21/21 12:43 (unknown) (no (unknown) (unknown) No weakness or (units (unknown) date) any other unknown) concerning signs or symptoms. (unknown) (no (unknown) (unknown) Ordered: (units (unkno wn) date) unknown) (unknown) (no (unknown) (unknown) Ordering (units (unkno wn) date) Provider: unknown) Imer Veliz P.A-C (unknown) (no (unknown) (unknown) Orders (units (unkno wn) date) unknown) (unknown) (no (unknown) (unknown) Oxygen Delivery (units (unknown) date) Method 09/15/22 unknown) 11:23 (unknown) (no (unknown) (unknown) Oxygen Delivery (units (unknown) date) Method Room Air unknown) (unknown) (no (unknown) (unknown) PROCEDURE:? XR (units (unknown) date) SHOULDER LT MIN 2V unknown) (unknown) (no (unknown) (unknown) PSYCHIATRIC: No (units (unknown) date) concerning unknown) psychosocial issues. (unknown) (no (unknown) (unknown) Patient (units (unkno wn) date) Disposition: Home unknown) (unknown) (no (unknown) (unknown) Patient History (units (unknown) date) unknown) (unknown) (no (unknown) (unknown) Patient denies (units (unknown) date) medical problems unknown) (unknown) (no (unknown) (unknown) Patient: (units (unkno wn) date) Fouzia Simmons unknown) MR#: [id number] (unknown) (no (unknown) (unknown) Patient: (units (unkno wn) date) Fouzia Simmons unknown) (unknown) (no (unknown) (unknown) Procedure: XR (units ( unknown) date) shoulder LT min 2V unknown) (unknown) (no (unknown) (unknown) Pulse Oximetry (units (unknown) date) 100 09/15/22 11:23 unknown) (unknown) (no (unknown) (unknown) Pulse Oximetry (units (unknown) date) 100 unknown) (unknown) (no (unknown) (unknown) Pulse Rate 73 (units ( unknown) date) 09/15/22 11:23 unknown) (unknown) (no (unknown) (unknown) Pulse Rate 73 (units ( unknown) date) unknown) (unknown) (no (unknown) (unknown) RESPIRATORY: (units (u nknown) date) Denies dyspnea, unknown) cough, wheezing, hemoptysis, sputum. (unknown) (no (unknown) (unknown) Radiologist's (units ( unknown) date) Impression: unknown) (unknown) (no (unknown) (unknown) Referrals: (units (unk nown) date) unknown) (unknown) (no (unknown) (unknown) Related Data (units (u nknown) date) unknown) (unknown) (no (unknown) (unknown) Respiratory Rate (units (unknown) date) 15 09/15/22 11:23 unknown) (unknown) (no (unknown) (unknown) Respiratory Rate (units (unknown) date) 15 unknown) (unknown) (no (unknown) (unknown) Review of Systems (units (unknown) date) unknown) (unknown) (no (unknown) (unknown) SKIN: Denies (units (u nknown) date) rash, skin unknown) lesions, or other (unknown) (no (unknown) (unknown) SKIN: No rash or (units (unknown) date) erythema of unknown) visible areas (unknown) (no (unknown) (unknown) Signed By: (units (unk nown) date) unknown) (unknown) (no (unknown) (unknown) Signed (units (unkno wn) date) unknown) (unknown) (no (unknown) (unknown) Smoking Status: (units (unknown) date) Current every day unknown) smoker (unknown) (no (unknown) (unknown) Social History (units (unknown) date) (Reviewed 09/21/21 unknown) @ 18:14 by Fareed Hoskins DO) (unknown) (no (unknown) (unknown) Soft tissues:? No (units (unknown) date) suspicious soft unknown) tissue calcifications.? (unknown) (no (unknown) (unknown) Source: patient (units (unknown) date) unknown) (unknown) (no (unknown) (unknown) Stated Complaint: (units (unknown) date) shoulder + neck unknown) injury from work 09/12 (unknown) (no (unknown) (unknown) Substance Use (units ( unknown) date) Type: marijuana unknown) (unknown) (no (unknown) (unknown) TECHNIQUE:? 3 (units ( unknown) date) views of the unknown) shoulder were acquired.? (unknown) (no (unknown) (unknown) Temperature 97.3 (units (unknown) date) F L 09/15/22 11:23 unknown) (unknown) (no (unknown) (unknown) Temperature 97.3 (units (unknown) date) F L unknown) (unknown) (no (unknown) (unknown) Thank you for (units ( unknown) date) coming to the [facility] Emergency Department today. The x-ray (unknown) (no (unknown) (unknown) This is a (units (unkn own) date) 27-year-old male unknown) presents emergency department due to left shoulder (unknown) (no (unknown) (unknown) This is a (units (unkn own) date) 27-year-old male unknown) presents to the emergency department complaining of (unknown) (no (unknown) (unknown) Time Seen by (units (u nknown) date) Provider: 09/15/22 unknown) 12:37 (unknown) (no (unknown) (unknown) Vital Signs - 8 (units (unknown) date) hr unknown) (unknown) (no (unknown) (unknown) Vital Signs (units (un known) date) unknown) (unknown) (no (unknown) (unknown) Vital signs: (units (u nknown) date) unknown) (unknown) (no (unknown) (unknown) XR shoulder LT (units (unknown) date) min 2V Stat unknown) (unknown) (no (unknown) (unknown) XRay Report (units (un known) date) unknown) (unknown) (no (unknown) (unknown) alcohol intake (units (unknown) date) frequency: unknown) holidays/special occasions only (unknown) (no (unknown) (unknown) and/or pain (units (un known) date) persist, short unknown) interval imaging followup in 7-10 days is (unknown) (no (unknown) (unknown) appear intact.? (units (unknown) date) unknown) (unknown) (no (unknown) (unknown) concern (units (unkno wn) date) unknown) (unknown) (no (unknown) (unknown) constipation, (units ( unknown) date) melena. unknown) (unknown) (no (unknown) (unknown) dizziness. (units (unk nown) date) unknown) (unknown) (no (unknown) (unknown) icterus. No (units (un known) date) injection or unknown) drainage. (unknown) (no (unknown) (unknown) left shoulder (units ( unknown) date) pain onset 4 days unknown) ago after rising up in his left shoulder on a (unknown) (no (unknown) (unknown) management. 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 (units (unknown) date) Denies any unknown) numbness in the left upper extremity but states that (unknown) (no (unknown) (unknown) mole on your (units (u nknown) date) head. unknown) (unknown) (no (unknown) (unknown) occult injury (units ( unknown) date) cannot be unknown) definitively excluded. (unknown) (no (unknown) (unknown) pain after blood (units (unknown) date) injury. X-ray unknown) shows no evidence of any fractures. (unknown) (no (unknown) (unknown) recommended, as (units (unknown) date) unknown) (unknown) (no (unknown) (unknown) rest until the (units (unknown) date) pain improves. unknown) Please follow up with Dermatology regarding the (unknown) (no (unknown) (unknown) ribs (units (unkno wn) date) unknown) (unknown) (no (unknown) (unknown) seizures, (units (unkn own) date) incoordination. unknown) (unknown) (no (unknown) (unknown) shows no signs of (units (unknown) date) any fractures in unknown) your shoulder. Please use ice, heat, and (unknown) (no (unknown) (unknown) there is a (units (unk nown) date) significant amount unknown) of pain to the left shoulder and scapular area. (unknown) (no (unknown) (unknown) well as left (units (u nknown) date) scapula, unknown) neurovascularly intact throughout Result panel 75 (unknown) (no (unknown) (unknown) (no value) (units (unk nown) date) unknown) (unknown) (no (unknown) (unknown) [id number] (units (unkno wn) date) unknown) (unknown) (no (unknown) (unknown) 09/15/22 13:09 (units (unknown) date) unknown) (unknown) (no (unknown) (unknown) 09/15/22 (units (unkno wn) date) unknown) (unknown) (no (unknown) (unknown) 11:23 (units (unkno wn) date) unknown) (unknown) (no (unknown) (unknown) 12 point review (units (unknown) date) of systems is unknown) negative except for those stated above (unknown) (no (unknown) (unknown) [address] [place] [address] (units (unknown) date) unknown) (unknown) (no (unknown) (unknown) ? (units (unkno wn) date) unknown) (unknown) (no (unknown) (unknown) Accession Number: (units (unknown) date) [id number] ?? unknown) (unknown) (no (unknown) (unknown) Acct:[id number] (units (unknown) date) unknown) (unknown) (no (unknown) (unknown) Activity (units (unkno wn) date) Restrictions/Addit unknown) ional Instructions: (unknown) (no (unknown) (unknown) Age/Sex: 27 / M (units (unknown) date) unknown) (unknown) (no (unknown) (unknown) Allergies (units (unkn own) date) unknown) (unknown) (no (unknown) (unknown) Allergy/AdvReac (units (unknown) date) Type Severity unknown) Reaction Status Date / Time (unknown) (no (unknown) (unknown) [place], [place] (units ( unknown) date) [id number] unknown) (unknown) (no (unknown) (unknown) Approved by: (units (u nknown) date) Jen Arreguin M.D. unknown) on 09/15/2022 at 13:35 ? (unknown) (no (unknown) (unknown) BACK: Nontender (units (unknown) date) without deformity unknown) or crepitance. No flank tenderness. (unknown) (no (unknown) (unknown) Blood Pressure (units (unknown) date) 141/85 H 09/15/22 unknown) 11:23 (unknown) (no (unknown) (unknown) Blood Pressure (units (unknown) date) 141/85 H unknown) (unknown) (no (unknown) (unknown) Blunt force (units (un known) date) injury unknown) (unknown) (no (unknown) (unknown) Bones:? No (units (unk nown) date) fractures or unknown) dislocations.? No suspicious bony lesions.? Visualized (unknown) (no (unknown) (unknown) CARDIOVASCULAR: (units (unknown) date) Denies chest pain, unknown) palpitations, orthopnea, edema, (unknown) (no (unknown) (unknown) COMPARISON:? (units (u nknown) date) None. 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 [Primary Care unknown) Provider] (unknown) (no (unknown) (unknown) Chief Complaint: (units (unknown) date) Extremity Injury, unknown) Upper (unknown) (no (unknown) (unknown) Clinical (units (unkno wn) date) Impression: unknown) (unknown) (no (unknown) (unknown) Course (units (unkno wn) date) unknown) (unknown) (no (unknown) (unknown) : 1995 (units (unknown) date) Acct:[id number] unknown) (unknown) (no (unknown) (unknown) : 1995 (units (unknown) date) unknown) (unknown) (no (unknown) (unknown) Date of Service: (units (unknown) date) 09/15/22 unknown) (unknown) (no (unknown) (unknown) Departure (units (unkn own) date) unknown) (unknown) (no (unknown) (unknown) Dictated by: (units (u nknown) date) Jen Arreguin M.D. unknown) on 09/15/2022 at 13:34 ? ? (unknown) (no (unknown) (unknown) Discharge Plan (units (unknown) date) unknown) (unknown) (no (unknown) (unknown) ED Orders (units (unkn own) date) unknown) (unknown) (no (unknown) (unknown) ER Physician: (units ( unknown) date) Imer Veliz P.A-C unknown) (unknown) (no (unknown) (unknown) EXTREMITIES: Mild (units (unknown) date) tenderness to unknown) palpation to the posterior left shoulder as (unknown) (no (unknown) (unknown) EYES: Pupils (units (u nknown) date) equal round and unknown) reactive. Extraocular motions intact. No scleral (unknown) (no (unknown) (unknown) Emergency Report (units (unknown) date) unknown) (unknown) (no (unknown) (unknown) Exam Narrative: (units (unknown) date) unknown) (unknown) (no (unknown) (unknown) Exam (units (unkno wn) date) unknown) (unknown) (no (unknown) (unknown) Extremity x-ray (units (unknown) date) #1: unknown) (unknown) (no (unknown) (unknown) FINDINGS:? (units (unk nown) date) unknown) (unknown) (no (unknown) (unknown) GASTROINTESTINAL: (units (unknown) date) Denies nausea, unknown) vomiting, abdominal pain, diarrhea, (unknown) (no (unknown) (unknown) GENERAL: Denies (units (unknown) date) chills, fatigue, unknown) malaise, fever, sweats. (unknown) (no (unknown) (unknown) GENERAL: (units (unkno wn) date) Well-developed unknown) patient, in mild distress. (unknown) (no (unknown) (unknown) : Denies (units (unk nown) date) dysuria, unknown) frequency, incontinence, hematuria, urinary retention. (unknown) (no (unknown) (unknown) General (units (unkno wn) date) unknown) (unknown) (no (unknown) (unknown) HEAD: Atraumatic. (units (unknown) date) Normocephalic. unknown) (unknown) (no (unknown) (unknown) HEENT: Denies (units ( unknown) date) sinus pain, ear unknown) pain, sore throat, difficulty swallowing, (unknown) (no (unknown) (unknown) HPI - Extremity (units (unknown) date) Injury (Upper) unknown) (unknown) (no (unknown) (unknown) HPI narrative: (units (unknown) date) unknown) (unknown) (no (unknown) (unknown) History of (units (unk nown) date) Present Illness unknown) (unknown) (no (unknown) (unknown) I hope you feel (units (unknown) date) better soon. unknown) (unknown) (no (unknown) (unknown) IMPRESSION:? No (units (unknown) date) visualized acute unknown) fracture or dislocation. However, if clinical (unknown) (no (unknown) (unknown) INDICATIONS:? L (units (unknown) date) shoulder pain/sp unknown) trauma (unknown) (no (unknown) (unknown) Imaging Data (units (u nknown) date) unknown) (unknown) (no (unknown) (unknown) Initial Vital (units ( unknown) date) Signs unknown) (unknown) (no (unknown) (unknown) Initial Vital (units ( unknown) date) Signs: unknown) (unknown) (no (unknown) (unknown) [facility] (units (unknown) date) [address] unknown) [place] [address] (unknown) (no (unknown) (unknown) [facility] (units (unknown) date) unknown) (unknown) (no (unknown) (unknown) Loc: ED (units (unkno wn) date) unknown) (unknown) (no (unknown) (unknown) MDM - Extremity (units (unknown) date) Injury (Upper) unknown) (unknown) (no (unknown) (unknown) MDM Narrative (units ( unknown) date) unknown) (unknown) (no (unknown) (unknown) MR#: [id number] (units (unknown) date) unknown) (unknown) (no (unknown) (unknown) MUSCULOSKELETAL: (units (unknown) date) Left shoulder pain unknown) (unknown) (no (unknown) (unknown) Medical History (units (unknown) date) (Reviewed 09/21/21 unknown) @ 18:14 by Fareed Hoskins DO) (unknown) (no (unknown) (unknown) Medical decision (units (unknown) date) making narrative: unknown) (unknown) (no (unknown) (unknown) Mode of arrival: (units (unknown) date) Ambulatory unknown) (unknown) (no (unknown) (unknown) NEURO: AOx3. (units (u nknown) date) unknown) (unknown) (no (unknown) (unknown) NEUROLOGIC: (units (un known) date) Denies weakness, unknown) headache, numbness, change in speech, confusion, (unknown) (no (unknown) (unknown) Narrative (units (unkn own) date) unknown) (unknown) (no (unknown) (unknown) Narrative: (units (unk nown) date) unknown) (unknown) (no (unknown) (unknown) Neurovascularly (units (unknown) date) intact throughout. unknown) Recommended symptomatic and conservative (unknown) (no (unknown) (unknown) No Known Drug (units ( unknown) date) Allergies Allergy unknown) Verified 09/21/21 12:43 (unknown) (no (unknown) (unknown) No weakness or (units (unknown) date) any other unknown) concerning signs or symptoms. (unknown) (no (unknown) (unknown) Ordered: (units (unkno wn) date) unknown) (unknown) (no (unknown) (unknown) Ordering (units (unkno wn) date) Provider: unknown) Imer Veliz P.A-C (unknown) (no (unknown) (unknown) Orders (units (unkno wn) date) unknown) (unknown) (no (unknown) (unknown) Oxygen Delivery (units (unknown) date) Method 09/15/22 unknown) 11:23 (unknown) (no (unknown) (unknown) Oxygen Delivery (units (unknown) date) Method Room Air unknown) (unknown) (no (unknown) (unknown) PROCEDURE:? XR (units (unknown) date) SHOULDER LT MIN 2V unknown) (unknown) (no (unknown) (unknown) PSYCHIATRIC: No (units (unknown) date) concerning unknown) psychosocial issues. (unknown) (no (unknown) (unknown) Patient (units (unkno wn) date) Disposition: Home unknown) (unknown) (no (unknown) (unknown) Patient History (units (unknown) date) unknown) (unknown) (no (unknown) (unknown) Patient denies (units (unknown) date) medical problems unknown) (unknown) (no (unknown) (unknown) Patient: (units (unkno wn) date) Fouzia Simmons unknown) MR#: [id number] (unknown) (no (unknown) (unknown) Patient: (units (unkno wn) date) Fouzia Simmons unknown) (unknown) (no (unknown) (unknown) Procedure: XR (units ( unknown) date) shoulder LT min 2V unknown) (unknown) (no (unknown) (unknown) Pulse Oximetry (units (unknown) date) 100 09/15/22 11:23 unknown) (unknown) (no (unknown) (unknown) Pulse Oximetry (units (unknown) date) 100 unknown) (unknown) (no (unknown) (unknown) Pulse Rate 73 (units ( unknown) date) 09/15/22 11:23 unknown) (unknown) (no (unknown) (unknown) Pulse Rate 73 (units ( unknown) date) unknown) (unknown) (no (unknown) (unknown) RESPIRATORY: (units (u nknown) date) Denies dyspnea, unknown) cough, wheezing, hemoptysis, sputum. (unknown) (no (unknown) (unknown) Radiologist's (units ( unknown) date) Impression: unknown) (unknown) (no (unknown) (unknown) Referrals: (units (unk nown) date) unknown) (unknown) (no (unknown) (unknown) Related Data (units (u nknown) date) unknown) (unknown) (no (unknown) (unknown) Respiratory Rate (units (unknown) date) 15 09/15/22 11:23 unknown) (unknown) (no (unknown) (unknown) Respiratory Rate (units (unknown) date) 15 unknown) (unknown) (no (unknown) (unknown) Review of Systems (units (unknown) date) unknown) (unknown) (no (unknown) (unknown) SKIN: Denies (units (u nknown) date) rash, skin unknown) lesions, or other (unknown) (no (unknown) (unknown) SKIN: No rash or (units (unknown) date) erythema of unknown) visible areas (unknown) (no (unknown) (unknown) Signed By: (units (unk nown) date) unknown) (unknown) (no (unknown) (unknown) Signed (units (unkno wn) date) unknown) (unknown) (no (unknown) (unknown) Smoking Status: (units (unknown) date) Current every day unknown) smoker (unknown) (no (unknown) (unknown) Social History (units (unknown) date) (Reviewed 09/21/21 unknown) @ 18:14 by Fareed Hoskins DO) (unknown) (no (unknown) (unknown) Soft tissues:? No (units (unknown) date) suspicious soft unknown) tissue calcifications.? (unknown) (no (unknown) (unknown) Source: patient (units (unknown) date) unknown) (unknown) (no (unknown) (unknown) Stated Complaint: (units (unknown) date) shoulder + neck unknown) injury from work 09/12 (unknown) (no (unknown) (unknown) Substance Use (units ( unknown) date) Type: marijuana unknown) (unknown) (no (unknown) (unknown) TECHNIQUE:? 3 (units ( unknown) date) views of the unknown) shoulder were acquired.? (unknown) (no (unknown) (unknown) Temperature 97.3 (units (unknown) date) F L 09/15/22 11:23 unknown) (unknown) (no (unknown) (unknown) Temperature 97.3 (units (unknown) date) F L unknown) (unknown) (no (unknown) (unknown) Thank you for (units ( unknown) date) coming to the unknown) [facility] Emergency Department today. The x-ray (unknown) (no (unknown) (unknown) This is a (units (unkn own) date) 27-year-old male unknown) presents emergency department due to left shoulder (unknown) (no (unknown) (unknown) This is a (units (unkn own) date) 27-year-old male unknown) presents to the emergency department complaining of (unknown) (no (unknown) (unknown) Time Seen by (units (u nknown) date) Provider: 09/15/22 unknown) 12:37 (unknown) (no (unknown) (unknown) Vital Signs - 8 (units (unknown) date) hr unknown) (unknown) (no (unknown) (unknown) Vital Signs (units (un known) date) unknown) (unknown) (no (unknown) (unknown) Vital signs: (units (u nknown) date) unknown) (unknown) (no (unknown) (unknown) XR shoulder LT (units (unknown) date) min 2V Stat unknown) (unknown) (no (unknown) (unknown) XRay Report (units (un known) date) unknown) (unknown) (no (unknown) (unknown) alcohol intake (units (unknown) date) frequency: unknown) holidays/special occasions only (unknown) (no (unknown) (unknown) and/or pain (units (un known) date) persist, short unknown) interval imaging followup in 7-10 days is (unknown) (no (unknown) (unknown) appear intact.? (units (unknown) date) unknown) (unknown) (no (unknown) (unknown) concern (units (unkno wn) date) unknown) (unknown) (no (unknown) (unknown) constipation, (units ( unknown) date) melena. unknown) (unknown) (no (unknown) (unknown) dizziness. (units (unk nown) date) unknown) (unknown) (no (unknown) (unknown) icterus. No (units (un known) date) injection or unknown) drainage. (unknown) (no (unknown) (unknown) left shoulder (units ( unknown) date) pain onset 4 days unknown) ago after rising up in his left shoulder on a (unknown) (no (unknown) (unknown) management. 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 (units (unknown) date) Denies any unknown) numbness in the left upper extremity but states that (unknown) (no (unknown) (unknown) mole on your (units (u nknown) date) head. unknown) (unknown) (no (unknown) (unknown) occult injury (units ( unknown) date) cannot be unknown) definitively excluded. (unknown) (no (unknown) (unknown) pain after blood (units (unknown) date) injury. X-ray unknown) shows no evidence of any fractures. (unknown) (no (unknown) (unknown) recommended, as (units (unknown) date) unknown) (unknown) (no (unknown) (unknown) rest until the (units (unknown) date) pain improves. unknown) Please follow up with Dermatology regarding the (unknown) (no (unknown) (unknown) ribs (units (unkno wn) date) unknown) (unknown) (no (unknown) (unknown) seizures, (units (unkn own) date) incoordination. unknown) (unknown) (no (unknown) (unknown) shows no signs of (units (unknown) date) any fractures in unknown) your shoulder. Please use ice, heat, and (unknown) (no (unknown) (unknown) there is a (units (unk nown) date) significant amount unknown) of pain to the left shoulder and scapular area. (unknown) (no (unknown) (unknown) well as left (units (u nknown) date) scapula, unknown) neurovascularly intact throughout Result panel 76 (unknown) (no (unknown) (unknown) (no value) (units (unk nown) date) unknown) (unknown) (no (unknown) (unknown) <Electronically (units (unknown) date) signed by Imer unknown) Evgeny Veliz> (unknown) (no (unknown) (unknown) [id number] (units (unkno wn) date) unknown) (unknown) (no (unknown) (unknown) 09/15/22 13:09 (units (unknown) date) unknown) (unknown) (no (unknown) (unknown) 09/15/22 1830 (units ( unknown) date) unknown) (unknown) (no (unknown) (unknown) 09/15/22 (units (unkno wn) date) unknown) (unknown) (no (unknown) (unknown) 11:23 (units (unkno wn) date) unknown) (unknown) (no (unknown) (unknown) 12 point review (units (unknown) date) of systems is unknown) negative except for those stated above (unknown) (no (unknown) (unknown) [address] [place] [address] (units (unknown) date) unknown) (unknown) (no (unknown) (unknown) ? (units (unkno wn) date) unknown) (unknown) (no (unknown) (unknown) Accession Number: (units (unknown) date) [id number] ?? unknown) (unknown) (no (unknown) (unknown) Acct:[id number] (units (unknown) date) unknown) (unknown) (no (unknown) (unknown) Activity (units (unkno wn) date) Restrictions/Addit unknown) ional Instructions: (unknown) (no (unknown) (unknown) Age/Sex: 27 / M (units (unknown) date) unknown) (unknown) (no (unknown) (unknown) Allergies (units (unkn own) date) unknown) (unknown) (no (unknown) (unknown) Allergy/AdvReac (units (unknown) date) Type Severity unknown) Reaction Status Date / Time (unknown) (no (unknown) (unknown) [place], [place] (units ( unknown) date) [id number] unknown) (unknown) (no (unknown) (unknown) Approved by: (units (u nknown) date) Jen Arreguin M.D. unknown) on 09/15/2022 at 13:35 ? (unknown) (no (unknown) (unknown) BACK: Nontender (units (unknown) date) without deformity unknown) or crepitance. No flank tenderness. (unknown) (no (unknown) (unknown) Blood Pressure (units (unknown) date) 141/85 H 09/15/22 unknown) 11:23 (unknown) (no (unknown) (unknown) Blood Pressure (units (unknown) date) 141/85 H unknown) (unknown) (no (unknown) (unknown) Blunt force (units (un known) date) injury unknown) (unknown) (no (unknown) (unknown) Bones:? No (units (unk nown) date) fractures or unknown) dislocations.? No suspicious bony lesions.? Visualized (unknown) (no (unknown) (unknown) CARDIOVASCULAR: (units (unknown) date) Denies chest pain, unknown) palpitations, orthopnea, edema, (unknown) (no (unknown) (unknown) COMPARISON:? (units (u nknown) date) None. 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 [Primary Care unknown) Provider] (unknown) (no (unknown) (unknown) Chief Complaint: (units (unknown) date) Extremity Injury, unknown) Upper (unknown) (no (unknown) (unknown) Clinical (units (unkno wn) date) Impression: unknown) (unknown) (no (unknown) (unknown) Course (units (unkno wn) date) unknown) (unknown) (no (unknown) (unknown) : 1995 (units (unknown) date) Acct:[id number] unknown) (unknown) (no (unknown) (unknown) : 1995 (units (unknown) date) unknown) (unknown) (no (unknown) (unknown) Date of Service: (units (unknown) date) 09/15/22 unknown) (unknown) (no (unknown) (unknown) Departure (units (unkn own) date) unknown) (unknown) (no (unknown) (unknown) Dictated by: (units (u nknown) date) Jen Arreguin M.D. unknown) on 09/15/2022 at 13:34 ? ? (unknown) (no (unknown) (unknown) Discharge Plan (units (unknown) date) unknown) (unknown) (no (unknown) (unknown) ED Orders (units (unkn own) date) unknown) (unknown) (no (unknown) (unknown) ER Physician: (units ( unknown) date) Imer Veliz P.A-C unknown) (unknown) (no (unknown) (unknown) EXTREMITIES: Mild (units (unknown) date) tenderness to unknown) palpation to the posterior left shoulder as (unknown) (no (unknown) (unknown) EYES: Pupils (units (u nknown) date) equal round and unknown) reactive. Extraocular motions intact. No scleral (unknown) (no (unknown) (unknown) Emergency Report (units (unknown) date) unknown) (unknown) (no (unknown) (unknown) Exam Narrative: (units (unknown) date) unknown) (unknown) (no (unknown) (unknown) Exam (units (unkno wn) date) unknown) (unknown) (no (unknown) (unknown) Extremity x-ray (units (unknown) date) #1: unknown) (unknown) (no (unknown) (unknown) FINDINGS:? (units (unk nown) date) unknown) (unknown) (no (unknown) (unknown) GASTROINTESTINAL: (units (unknown) date) Denies nausea, unknown) vomiting, abdominal pain, diarrhea, (unknown) (no (unknown) (unknown) GENERAL: Denies (units (unknown) date) chills, fatigue, unknown) malaise, fever, sweats. (unknown) (no (unknown) (unknown) GENERAL: (units (unkno wn) date) Well-developed unknown) patient, in mild distress. (unknown) (no (unknown) (unknown) : Denies (units (unk nown) date) dysuria, unknown) frequency, incontinence, hematuria, urinary retention. (unknown) (no (unknown) (unknown) General (units (unkno wn) date) unknown) (unknown) (no (unknown) (unknown) HEAD: Atraumatic. (units (unknown) date) Normocephalic. unknown) (unknown) (no (unknown) (unknown) HEENT: Denies (units ( unknown) date) sinus pain, ear unknown) pain, sore throat, difficulty swallowing, (unknown) (no (unknown) (unknown) HPI - Extremity (units (unknown) date) Injury (Upper) unknown) (unknown) (no (unknown) (unknown) HPI narrative: (units (unknown) date) unknown) (unknown) (no (unknown) (unknown) History of (units (unk nown) date) Present Illness unknown) (unknown) (no (unknown) (unknown) I hope you feel (units (unknown) date) better soon. unknown) (unknown) (no (unknown) (unknown) IMPRESSION:? No (units (unknown) date) visualized acute unknown) fracture or dislocation. However, if clinical (unknown) (no (unknown) (unknown) INDICATIONS:? L (units (unknown) date) shoulder pain/sp unknown) trauma (unknown) (no (unknown) (unknown) Imaging Data (units (u nknown) date) unknown) (unknown) (no (unknown) (unknown) Initial Vital (units ( unknown) date) Signs unknown) (unknown) (no (unknown) (unknown) Initial Vital (units ( unknown) date) Signs: unknown) (unknown) (no (unknown) (unknown) [facility] (units (unknown) date) [address] unknown) [place] [address] (unknown) (no (unknown) (unknown) [facility] (units (unknown) date) unknown) (unknown) (no (unknown) (unknown) Loc: ED (units (unkno wn) date) unknown) (unknown) (no (unknown) (unknown) MDM - Extremity (units (unknown) date) Injury (Upper) unknown) (unknown) (no (unknown) (unknown) MDM Narrative (units ( unknown) date) unknown) (unknown) (no (unknown) (unknown) MR#: [id number] (units (unknown) date) unknown) (unknown) (no (unknown) (unknown) MUSCULOSKELETAL: (units (unknown) date) Left shoulder pain unknown) (unknown) (no (unknown) (unknown) Medical History (units (unknown) date) (Reviewed 09/21/21 unknown) @ 18:14 by Fareed Hoskins DO) (unknown) (no (unknown) (unknown) Medical decision (units (unknown) date) making narrative: unknown) (unknown) (no (unknown) (unknown) Mode of arrival: (units (unknown) date) Ambulatory unknown) (unknown) (no (unknown) (unknown) NEURO: AOx3. (units (u nknown) date) unknown) (unknown) (no (unknown) (unknown) NEUROLOGIC: (units (un known) date) Denies weakness, unknown) headache, numbness, change in speech, confusion, (unknown) (no (unknown) (unknown) Narrative (units (unkn own) date) unknown) (unknown) (no (unknown) (unknown) Narrative: (units (unk nown) date) unknown) (unknown) (no (unknown) (unknown) Neurovascularly (units (unknown) date) intact throughout. unknown) Recommended symptomatic and conservative (unknown) (no (unknown) (unknown) No Known Drug (units ( unknown) date) Allergies Allergy unknown) Verified 09/21/21 12:43 (unknown) (no (unknown) (unknown) No weakness or (units (unknown) date) any other unknown) concerning signs or symptoms. (unknown) (no (unknown) (unknown) Ordered: (units (unkno wn) date) unknown) (unknown) (no (unknown) (unknown) Ordering (units (unkno wn) date) Provider: unknown) Imer Veliz P.A-C (unknown) (no (unknown) (unknown) Orders (units (unkno wn) date) unknown) (unknown) (no (unknown) (unknown) Oxygen Delivery (units (unknown) date) Method 09/15/22 unknown) 11:23 (unknown) (no (unknown) (unknown) Oxygen Delivery (units (unknown) date) Method Room Air unknown) (unknown) (no (unknown) (unknown) PROCEDURE:? XR (units (unknown) date) SHOULDER LT MIN 2V unknown) (unknown) (no (unknown) (unknown) PSYCHIATRIC: No (units (unknown) date) concerning unknown) psychosocial issues. (unknown) (no (unknown) (unknown) Patient (units (unkno wn) date) Disposition: Home unknown) (unknown) (no (unknown) (unknown) Patient History (units (unknown) date) unknown) (unknown) (no (unknown) (unknown) Patient denies (units (unknown) date) medical problems unknown) (unknown) (no (unknown) (unknown) Patient: (units (unkno wn) date) Fouzia Simmons unknown) MR#: [id number] (unknown) (no (unknown) (unknown) Patient: (units (unkno wn) date) Fouzia Simmons unknown) (unknown) (no (unknown) (unknown) Procedure: XR (units ( unknown) date) shoulder LT min 2V unknown) (unknown) (no (unknown) (unknown) Pulse Oximetry (units (unknown) date) 100 09/15/22 11:23 unknown) (unknown) (no (unknown) (unknown) Pulse Oximetry (units (unknown) date) 100 unknown) (unknown) (no (unknown) (unknown) Pulse Rate 73 (units ( unknown) date) 09/15/22 11:23 unknown) (unknown) (no (unknown) (unknown) Pulse Rate 73 (units ( unknown) date) unknown) (unknown) (no (unknown) (unknown) RESPIRATORY: (units (u nknown) date) Denies dyspnea, unknown) cough, wheezing, hemoptysis, sputum. (unknown) (no (unknown) (unknown) Radiologist's (units ( unknown) date) Impression: unknown) (unknown) (no (unknown) (unknown) Referrals: (units (unk nown) date) unknown) (unknown) (no (unknown) (unknown) Related Data (units (u nknown) date) unknown) (unknown) (no (unknown) (unknown) Respiratory Rate (units (unknown) date) 15 09/15/22 11:23 unknown) (unknown) (no (unknown) (unknown) Respiratory Rate (units (unknown) date) 15 unknown) (unknown) (no (unknown) (unknown) Review of Systems (units (unknown) date) unknown) (unknown) (no (unknown) (unknown) SKIN: Denies (units (u nknown) date) rash, skin unknown) lesions, or other (unknown) (no (unknown) (unknown) SKIN: No rash or (units (unknown) date) erythema of unknown) visible areas (unknown) (no (unknown) (unknown) Signed By: (units (unk nown) date) unknown) (unknown) (no (unknown) (unknown) Signed (units (unkno wn) date) unknown) (unknown) (no (unknown) (unknown) Smoking Status: (units (unknown) date) Current every day unknown) smoker (unknown) (no (unknown) (unknown) Social History (units (unknown) date) (Reviewed 09/21/21 unknown) @ 18:14 by Fareed Hoskins DO) (unknown) (no (unknown) (unknown) Soft tissues:? No (units (unknown) date) suspicious soft unknown) tissue calcifications.? (unknown) (no (unknown) (unknown) Source: patient (units (unknown) date) unknown) (unknown) (no (unknown) (unknown) Stand Alone (units (un known) date) Forms: Work unknown) Release Note (unknown) (no (unknown) (unknown) Stated Complaint: (units (unknown) date) shoulder + neck unknown) injury from work 09/12 (unknown) (no (unknown) (unknown) Substance Use (units ( unknown) date) Type: marijuana unknown) (unknown) (no (unknown) (unknown) TECHNIQUE:? 3 (units ( unknown) date) views of the unknown) shoulder were acquired.? (unknown) (no (unknown) (unknown) Temperature 97.3 (units (unknown) date) F L 09/15/22 11:23 unknown) (unknown) (no (unknown) (unknown) Temperature 97.3 (units (unknown) date) F L unknown) (unknown) (no (unknown) (unknown) Thank you for (units ( unknown) date) coming to the unknown) [facility] Emergency Department today. The x-ray (unknown) (no (unknown) (unknown) This is a (units (unkn own) date) 27-year-old male unknown) presents emergency department due to left shoulder (unknown) (no (unknown) (unknown) This is a (units (unkn own) date) 27-year-old male unknown) presents to the emergency department complaining of (unknown) (no (unknown) (unknown) Time Seen by (units (u nknown) date) Provider: 09/15/22 unknown) 12:37 (unknown) (no (unknown) (unknown) Vital Signs - 8 (units (unknown) date) hr unknown) (unknown) (no (unknown) (unknown) Vital Signs (units (un known) date) unknown) (unknown) (no (unknown) (unknown) Vital signs: (units (u nknown) date) unknown) (unknown) (no (unknown) (unknown) XR shoulder LT (units (unknown) date) min 2V Stat unknown) (unknown) (no (unknown) (unknown) XRay Report (units (un known) date) unknown) (unknown) (no (unknown) (unknown) alcohol intake (units (unknown) date) frequency: unknown) holidays/special occasions only (unknown) (no (unknown) (unknown) and/or pain (units (un known) date) persist, short unknown) interval imaging followup in 7-10 days is (unknown) (no (unknown) (unknown) appear intact.? (units (unknown) date) unknown) (unknown) (no (unknown) (unknown) concern (units (unkno wn) date) unknown) (unknown) (no (unknown) (unknown) constipation, (units ( unknown) date) melena. unknown) (unknown) (no (unknown) (unknown) dizziness. (units (unk nown) date) unknown) (unknown) (no (unknown) (unknown) icterus. No (units (un known) date) injection or unknown) drainage. (unknown) (no (unknown) (unknown) left shoulder (units ( unknown) date) pain onset 4 days unknown) ago after rising up in his left shoulder on a (unknown) (no (unknown) (unknown) management. 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 (units (unknown) date) Denies any unknown) numbness in the left upper extremity but states that (unknown) (no (unknown) (unknown) mole on your (units (u nknown) date) head. unknown) (unknown) (no (unknown) (unknown) occult injury (units ( unknown) date) cannot be unknown) definitively excluded. (unknown) (no (unknown) (unknown) pain after blood (units (unknown) date) injury. X-ray unknown) shows no evidence of any fractures. (unknown) (no (unknown) (unknown) recommended, as (units (unknown) date) unknown) (unknown) (no (unknown) (unknown) rest until the (units (unknown) date) pain improves. unknown) Please follow up with Dermatology regarding the (unknown) (no (unknown) (unknown) ribs (units (unkno wn) date) unknown) (unknown) (no (unknown) (unknown) seizures, (units (unkn own) date) incoordination. unknown) (unknown) (no (unknown) (unknown) shows no signs of (units (unknown) date) any fractures in unknown) your shoulder. Please use ice, heat, and (unknown) (no (unknown) (unknown) there is a (units (unk nown) date) significant amount unknown) of pain to the left shoulder and scapular area. (unknown) (no (unknown) (unknown) well as left (units (u nknown) date) scapula, unknown) neurovascularly intact throughout Result panel 77 (unknown) (no date) (unknown) (unknown) 0.8 % (unkn own) (unknown) (no date) (unknown) (unknown) 1.6 % (unkn own) (unknown) (no date) (unknown) (unknown) 100 /ul (unkn own) (unknown) (no date) (unknown) (unknown) 100 /ul (unkn own) (unknown) (no date) (unknown) (unknown) 12.3 % (unkn own) (unknown) (no date) (unknown) (unknown) 14.4 g/dl (unkn own) (unknown) (no date) (unknown) (unknown) 231 x10 3/ul (unkn own) (unknown) (no date) (unknown) (unknown) 2700 /ul (unkn own) (unknown) (no date) (unknown) (unknown) 29.5 pg (unkn own) (unknown) (no date) (unknown) (unknown) 34.2 % (unkn own) (unknown) (no date) (unknown) (unknown) 34.7 % (unkn own) (unknown) (no date) (unknown) (unknown) 4.86 x10 6/ul (unkn own) (unknown) (no date) (unknown) (unknown) 41.4 % (unkn own) (unknown) (no date) (unknown) (unknown) 4500 /ul (unkn own) (unknown) (no date) (unknown) (unknown) 55.6 % (unkn own) (unknown) (no date) (unknown) (unknown) 600 /ul (unkn own) (unknown) (no date) (unknown) (unknown) 7.8 % (unkn own) (unknown) (no date) (unknown) (unknown) 8.0 x10 3/ul (unkn own) (unknown) (no date) (unknown) (unknown) 85.2 fl (unkn own) Result panel 78 (unknown) (no (unknown) (unknown) (no value) (units (unk nown) date) unknown) (unknown) (no (unknown) (unknown) 02:42 (units (unkno wn) date) unknown) (unknown) (no (unknown) (unknown) 02:55 (units (unkno wn) date) unknown) (unknown) (no (unknown) (unknown) [id number] (units (unkno wn) date) unknown) (unknown) (no (unknown) (unknown) 10/16/22 02:55 (units (unknown) date) unknown) (unknown) (no (unknown) (unknown) 10/16/22 03:22 (units (unknown) date) unknown) (unknown) (no (unknown) (unknown) 10/16/22 (units (unkno wn) date) Range/Units unknown) (unknown) (no (unknown) (unknown) 10/16/22 (units (unkno wn) date) unknown) (unknown) (no (unknown) (unknown) Age/Sex: 27 / M (units (unknown) date) unknown) (unknown) (no (unknown) (unknown) Allergies (units (unkn own) date) unknown) (unknown) (no (unknown) (unknown) Allergy/AdvReac (units (unknown) date) Type Severity unknown) Reaction Status Date / Time (unknown) (no (unknown) (unknown) Baso # (Auto) (units ( unknown) date) 100 (0-100) /uL unknown) (unknown) (no (unknown) (unknown) Baso % (Auto) (units ( unknown) date) 0.8 (0-2) % unknown) (unknown) (no (unknown) (unknown) Blood Pressure (units (unknown) date) 124/64 10/16/22 unknown) 02:42 (unknown) (no (unknown) (unknown) Blood Pressure (units (unknown) date) 124/64 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 [Primary unknown) Care Provider] (unknown) (no (unknown) (unknown) Chief complaint: (units (unknown) date) GI Bleed unknown) (unknown) (no (unknown) (unknown) Complete Blood (units (unknown) date) Count AUTO DIFF unknown) Stat (unknown) (no (unknown) (unknown) Comprehensive (units ( unknown) date) Metabolic Panel unknown) Stat (unknown) (no (unknown) (unknown) Course (units (unkno wn) date) unknown) (unknown) (no (unknown) (unknown) : 1995 (units (unknown) date) Acct:[id number] unknown) (unknown) (no (unknown) (unknown) Date of Service: (units (unknown) date) 10/16/22 unknown) (unknown) (no (unknown) (unknown) Departure (units (unkn own) date) unknown) (unknown) (no (unknown) (unknown) Discharge Plan (units (unknown) date) unknown) (unknown) (no (unknown) (unknown) ED Orders (units (unkn own) date) unknown) (unknown) (no (unknown) (unknown) ER Physician: (units ( unknown) date) Yamileth Orlando unknown) D.O. (unknown) (no (unknown) (unknown) Emergency Report (units (unknown) date) unknown) (unknown) (no (unknown) (unknown) Eos # (Auto) 100 (units (unknown) date) (0-450) /uL unknown) (unknown) (no (unknown) (unknown) Eos % (Auto) 1.6 (units (unknown) date) L (2-4) % unknown) (unknown) (no (unknown) (unknown) Exam (units (unkno wn) date) unknown) (unknown) (no (unknown) (unknown) General (units (unkno wn) date) unknown) (unknown) (no (unknown) (unknown) HPI - GI Bleed (units (unknown) date) unknown) (unknown) (no (unknown) (unknown) Hct 41.4 (41-53) (units (unknown) date) % unknown) (unknown) (no (unknown) (unknown) Hgb 14.4 (units (unkno wn) date) (13.5-17.5) g/dL unknown) (unknown) (no (unknown) (unknown) Initial Vital (units ( unknown) date) Signs unknown) (unknown) (no (unknown) (unknown) Initial Vital (units ( unknown) date) Signs: unknown) (unknown) (no (unknown) (unknown) [facility] (units (unknown) date) [address] unknown) [place] [address] (unknown) (no (unknown) (unknown) Lab Data (units (unkno wn) date) unknown) (unknown) (no (unknown) (unknown) Lab Results (units (un known) date) unknown) (unknown) (no (unknown) (unknown) Labs: (units (unkno wn) date) unknown) (unknown) (no (unknown) (unknown) Lipase Stat (units (un known) date) unknown) (unknown) (no (unknown) (unknown) Lymph # (Auto) (units (unknown) date) 2700 ([id number]) unknown) /uL (unknown) (no (unknown) (unknown) Lymph % (Auto) (units (unknown) date) 34.2 (25-40) % unknown) (unknown) (no (unknown) (unknown) MCH 29.5 (26-34) (units (unknown) date) PG unknown) (unknown) (no (unknown) (unknown) MCHC 34.7 (units (unkn own) date) (30-36) % unknown) (unknown) (no (unknown) (unknown) MCV 85.2 (units (unkno wn) date) (80-100) fL unknown) (unknown) (no (unknown) (unknown) MDM - GI Bleed (units (unknown) date) unknown) (unknown) (no (unknown) (unknown) Medical History (units (unknown) date) (Reviewed unknown) 09/21/21 @ 18:14 by Fareed Hoskins DO) (unknown) (no (unknown) (unknown) Mode of arrival: (units (unknown) date) Ambulatory unknown) (unknown) (no (unknown) (unknown) Randall # (Auto) (units ( unknown) date) 600 (0-900) /uL unknown) (unknown) (no (unknown) (unknown) Randall % (Auto) (units ( unknown) date) 7.8 (3-14) % unknown) (unknown) (no (unknown) (unknown) Neut # (Auto) (units ( unknown) date) 4500 (1461-8859) unknown) /uL (unknown) (no (unknown) (unknown) Neut % (Auto) (units ( unknown) date) 55.6 (50-75) % unknown) (unknown) (no (unknown) (unknown) No Known Drug (units ( unknown) date) Allergies Allergy unknown) Verified 09/21/21 12:43 (unknown) (no (unknown) (unknown) Ordered: (units (unkno wn) date) unknown) (unknown) (no (unknown) (unknown) Orders (units (unkno wn) date) unknown) (unknown) (no (unknown) (unknown) Oxygen Delivery (units (unknown) date) Method 10/16/22 unknown) 02:42 (unknown) (no (unknown) (unknown) Oxygen Delivery (units (unknown) date) Method Room Air unknown) (unknown) (no (unknown) (unknown) Patient History (units (unknown) date) unknown) (unknown) (no (unknown) (unknown) Patient denies (units (unknown) date) medical problems unknown) (unknown) (no (unknown) (unknown) Patient: (units (unkno wn) date) Fouzia Simmons unknown) MR#: [id number] (unknown) (no (unknown) (unknown) Plt Count 231 (units ( unknown) date) (150-400) X103/uL unknown) (unknown) (no (unknown) (unknown) Pulse Oximetry (units (unknown) date) 96 10/16/22 02:42 unknown) (unknown) (no (unknown) (unknown) Pulse Oximetry (units (unknown) date) 96 unknown) (unknown) (no (unknown) (unknown) Pulse Rate 70 (units ( unknown) date) 10/16/22 02:42 unknown) (unknown) (no (unknown) (unknown) Pulse Rate 70 (units ( unknown) date) unknown) (unknown) (no (unknown) (unknown) RBC 4.86 (units (unkno wn) date) (4.5-5.9) X106/uL unknown) (unknown) (no (unknown) (unknown) RDW 12.3 (units (unkno wn) date) (11.6-14.8) % unknown) (unknown) (no (unknown) (unknown) Referrals: (units (unk nown) date) unknown) (unknown) (no (unknown) (unknown) Related Data (units (u nknown) date) unknown) (unknown) (no (unknown) (unknown) Respiratory Rate (units (unknown) date) 18 10/16/22 02:42 unknown) (unknown) (no (unknown) (unknown) Respiratory Rate (units (unknown) date) 18 unknown) (unknown) (no (unknown) (unknown) Result diagrams: (units (unknown) date) unknown) (unknown) (no (unknown) (unknown) Signed By: (units (unk nown) date) unknown) (unknown) (no (unknown) (unknown) Smoking Status: (units (unknown) date) Current every day unknown) smoker (unknown) (no (unknown) (unknown) Social History (units (unknown) date) (Reviewed unknown) 09/21/21 @ 18:14 by Fareed Hoskins DO) (unknown) (no (unknown) (unknown) Source: patient (units (unknown) date) and family unknown) (unknown) (no (unknown) (unknown) Stated (units (unkno wn) date) complaint: RECTAL unknown) BLEEDING (unknown) (no (unknown) (unknown) Substance Use (units ( unknown) date) Type: marijuana unknown) (unknown) (no (unknown) (unknown) Temperature 97.9 (units (unknown) date) F 10/16/22 02:42 unknown) (unknown) (no (unknown) (unknown) Temperature 97.9 (units (unknown) date) F unknown) (unknown) (no (unknown) (unknown) Time Seen by (units (u nknown) date) Provider: unknown) 10/16/22 03:17 (unknown) (no (unknown) (unknown) Vital Signs - 8 (units (unknown) date) hr unknown) (unknown) (no (unknown) (unknown) Vital Signs (units (un known) date) unknown) (unknown) (no (unknown) (unknown) Vital signs: (units (u nknown) date) unknown) (unknown) (no (unknown) (unknown) WBC 8.0 (units (unkno wn) date) (4.5-11.0) unknown) X103/uL (unknown) (no (unknown) (unknown) [Embedded Image (units (unknown) date) Not Available] unknown) (unknown) (no (unknown) (unknown) alcohol intake (units (unknown) date) frequency: unknown) holidays/special occasions only Result panel 79 (unknown) (no date) (unknown) (unknown) > 60 ml/min (unkn own) (unknown) (no date) (unknown) (unknown) > 60 ml/min (unkn own) (unknown) (no date) (unknown) (unknown) 0.4 mg/dl (unkn own) (unknown) (no date) (unknown) (unknown) 0.66 mg/dl (unkn own) (unknown) (no date) (unknown) (unknown) 1.8 (units unknown) (unknown) (unknown) (no date) (unknown) (unknown) 104 mmol/l (unkn own) (unknown) (no date) (unknown) (unknown) 107 mg/dl (unkn own) (unknown) (no date) (unknown) (unknown) 107 mg/dl (unkn own) (unknown) (no date) (unknown) (unknown) 12 mg/dl (unkn own) (unknown) (no date) (unknown) (unknown) 138 mmol/l (unkn own) (unknown) (no date) (unknown) (unknown) 18 iu/l (unkn own) (unknown) (no date) (unknown) (unknown) 18.2 (units unknown) (unknown) (unknown) (no date) (unknown) (unknown) 2.4 g/dl (unkn own) (unknown) (no date) (unknown) (unknown) 20 iu/l (unkn own) (unknown) (no date) (unknown) (unknown) 26 mmol/l (unkn own) (unknown) (no date) (unknown) (unknown) 3.7 mmol/l (unkn own) (unknown) (no date) (unknown) (unknown) 4.4 g/dl (unkn own) (unknown) (no date) (unknown) (unknown) 6.8 g/dl (unkn own) (unknown) (no date) (unknown) (unknown) 78 u/l (unkn own) (unknown) (no date) (unknown) (unknown) 81 u/l (unkn own) (unknown) (no date) (unknown) (unknown) 9.1 mg/dl (unkn own) Result panel 80 (unknown) (no (unknown) (unknown) (no value) (units (unk nown) date) unknown) (unknown) (no (unknown) (unknown) 02:42 (units (unkno wn) date) unknown) (unknown) (no (unknown) (unknown) 02:55 02:55 (units (un known) date) unknown) (unknown) (no (unknown) (unknown) [id number] (units (unkno wn) date) unknown) (unknown) (no (unknown) (unknown) 10/16/22 02:55 (units (unknown) date) unknown) (unknown) (no (unknown) (unknown) 10/16/22 03:22 (units (unknown) date) unknown) (unknown) (no (unknown) (unknown) 10/16/22 (units (unkno wn) date) 10/16/22 unknown) Range/Units (unknown) (no (unknown) (unknown) 10/16/22 (units (unkno wn) date) unknown) (unknown) (no (unknown) (unknown) ALT 18 (<50) (units (u nknown) date) IU/L unknown) (unknown) (no (unknown) (unknown) AST 20 (17-59) (units (unknown) date) IU/L unknown) (unknown) (no (unknown) (unknown) Age/Sex: 27 / M (units (unknown) date) unknown) (unknown) (no (unknown) (unknown) Albumin 4.4 (units (un known) date) (3.5-5.0) g/dL unknown) (unknown) (no (unknown) (unknown) Albumin/Globulin (units (unknown) date) Ratio 1.8 unknown) (1.0-2.8) (unknown) (no (unknown) (unknown) Alkaline (units (unkno wn) date) Phosphatase 78 unknown) (38-126) U/L (unknown) (no (unknown) (unknown) Allergies (units (unkn own) date) unknown) (unknown) (no (unknown) (unknown) Allergy/AdvReac (units (unknown) date) Type Severity unknown) Reaction Status Date / Time (unknown) (no (unknown) (unknown) BUN 12 (9-20) (units ( unknown) date) mg/dL unknown) (unknown) (no (unknown) (unknown) BUN/Creatinine (units (unknown) date) Ratio 18.2 (6-22) unknown) (unknown) (no (unknown) (unknown) Baso # (Auto) (units ( unknown) date) 100 (0-100) /uL unknown) (unknown) (no (unknown) (unknown) Baso % (Auto) (units ( unknown) date) 0.8 (0-2) % unknown) (unknown) (no (unknown) (unknown) Blood Pressure (units (unknown) date) 124/64 10/16/22 unknown) 02:42 (unknown) (no (unknown) (unknown) Blood Pressure (units (unknown) date) 124/64 unknown) (unknown) (no (unknown) (unknown) Calcium 9.1 (units (un known) date) (8.4-10.2) mg/dL unknown) (unknown) (no (unknown) (unknown) Carbon Dioxide (units (unknown) date) 26 (22-32) mmol/L 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 [Primary unknown) Care Provider] (unknown) (no (unknown) (unknown) Chief complaint: (units (unknown) date) GI Bleed unknown) (unknown) (no (unknown) (unknown) Chloride 104 (units (u nknown) date) (98-107) mmol/L unknown) (unknown) (no (unknown) (unknown) Complete Blood (units (unknown) date) Count AUTO DIFF unknown) Stat (unknown) (no (unknown) (unknown) Comprehensive (units ( unknown) date) Metabolic Panel unknown) Stat (unknown) (no (unknown) (unknown) Course (units (unkno wn) date) unknown) (unknown) (no (unknown) (unknown) Creatinine 0.66 (units (unknown) date) (0.66-1.25) mg/dL unknown) (unknown) (no (unknown) (unknown) : 1995 (units (unknown) date) Acct:[id number] unknown) (unknown) (no (unknown) (unknown) Date of Service: (units (unknown) date) 10/16/22 unknown) (unknown) (no (unknown) (unknown) Departure (units (unkn own) date) unknown) (unknown) (no (unknown) (unknown) Discharge Plan (units (unknown) date) unknown) (unknown) (no (unknown) (unknown) ED Orders (units (unkn own) date) unknown) (unknown) (no (unknown) (unknown) ER Physician: (units ( unknown) date) Yamileth Orlando unknown) D.OCarolyn (unknown) (no (unknown) (unknown) Emergency Report (units (unknown) date) unknown) (unknown) (no (unknown) (unknown) Eos # (Auto) 100 (units (unknown) date) (0-450) /uL unknown) (unknown) (no (unknown) (unknown) Eos % (Auto) 1.6 (units (unknown) date) L (2-4) % unknown) (unknown) (no (unknown) (unknown) Estimated GFR > (units (unknown) date) 60 (>60) mL/min unknown) (unknown) (no (unknown) (unknown) Exam (units (unkno wn) date) unknown) (unknown) (no (unknown) (unknown) General (units (unkno wn) date) unknown) (unknown) (no (unknown) (unknown) Globulin 2.4 (units (u nknown) date) (1.7-4.1) g/dL unknown) (unknown) (no (unknown) (unknown) Glucose 107 H (units ( unknown) date) (70-100) mg/dL unknown) (unknown) (no (unknown) (unknown) HPI - GI Bleed (units (unknown) date) unknown) (unknown) (no (unknown) (unknown) Hct 41.4 (41-53) (units (unknown) date) % unknown) (unknown) (no (unknown) (unknown) Hgb 14.4 (units (unkno wn) date) (13.5-17.5) g/dL unknown) (unknown) (no (unknown) (unknown) Initial Vital (units ( unknown) date) Signs unknown) (unknown) (no (unknown) (unknown) Initial Vital (units ( unknown) date) Signs: unknown) (unknown) (no (unknown) (unknown) [facility] (units (unknown) date) [address]) [place] [address] (unknown) (no (unknown) (unknown) Lab Data (units (unkno wn) date) unknown) (unknown) (no (unknown) (unknown) Lab Results (units (un known) date) unknown) (unknown) (no (unknown) (unknown) Labs: (units (unkno wn) date) unknown) (unknown) (no (unknown) (unknown) Limitations: no (units (unknown) date) limitations unknown) (unknown) (no (unknown) (unknown) Lipase 81 (units (unkn own) date) (23-300) U/L unknown) (unknown) (no (unknown) (unknown) Lipase Stat (units (un known) date) unknown) (unknown) (no (unknown) (unknown) Lymph # (Auto) (units (unknown) date) 2700 (8683-7559) unknown) /uL (unknown) (no (unknown) (unknown) Lymph % (Auto) (units (unknown) date) 34.2 (25-40) % unknown) (unknown) (no (unknown) (unknown) MCH 29.5 (26-34) (units (unknown) date) PG unknown) (unknown) (no (unknown) (unknown) MCHC 34.7 (units (unkn own) date) (30-36) % unknown) (unknown) (no (unknown) (unknown) MCV 85.2 (units (unkno wn) date) (80-100) fL unknown) (unknown) (no (unknown) (unknown) MDM - GI Bleed (units (unknown) date) unknown) (unknown) (no (unknown) (unknown) Medical History (units (unknown) date) (Reviewed unknown) 10/16/22 @ 03:50 by Yamileth Orlando DO) (unknown) (no (unknown) (unknown) Mode of arrival: (units (unknown) date) Ambulatory unknown) (unknown) (no (unknown) (unknown) Randall # (Auto) (units ( unknown) date) 600 (0-900) /uL unknown) (unknown) (no (unknown) (unknown) Randall % (Auto) (units ( unknown) date) 7.8 (3-14) % unknown) (unknown) (no (unknown) (unknown) Neut # (Auto) (units ( unknown) date) 4500 (8786-7782) unknown) /uL (unknown) (no (unknown) (unknown) Neut % (Auto) (units ( unknown) date) 55.6 (50-75) % unknown) (unknown) (no (unknown) (unknown) No Known Drug (units ( unknown) date) Allergies Allergy unknown) Verified 09/21/21 12:43 (unknown) (no (unknown) (unknown) Ordered: (units (unkno wn) date) unknown) (unknown) (no (unknown) (unknown) Orders (units (unkno wn) date) unknown) (unknown) (no (unknown) (unknown) Oxygen Delivery (units (unknown) date) Method 10/16/22 unknown) 02:42 (unknown) (no (unknown) (unknown) Oxygen Delivery (units (unknown) date) Method Room Air unknown) (unknown) (no (unknown) (unknown) Patient History (units (unknown) date) unknown) (unknown) (no (unknown) (unknown) Patient denies (units (unknown) date) medical problems unknown) (unknown) (no (unknown) (unknown) Patient: (units (unkno wn) date) Fouzia Simmons unknown) MR#: [id number] (unknown) (no (unknown) (unknown) Plt Count 231 (units ( unknown) date) (150-400) X103/uL unknown) (unknown) (no (unknown) (unknown) Potassium 3.7 (units ( unknown) date) (3.4-5.1) mmol/L unknown) (unknown) (no (unknown) (unknown) Pulse Oximetry (units (unknown) date) 96 10/16/22 02:42 unknown) (unknown) (no (unknown) (unknown) Pulse Oximetry (units (unknown) date) 96 unknown) (unknown) (no (unknown) (unknown) Pulse Rate 70 (units ( unknown) date) 10/16/22 02:42 unknown) (unknown) (no (unknown) (unknown) Pulse Rate 70 (units ( unknown) date) unknown) (unknown) (no (unknown) (unknown) RBC 4.86 (units (unkno wn) date) (4.5-5.9) X106/uL unknown) (unknown) (no (unknown) (unknown) RDW 12.3 (units (unkno wn) date) (11.6-14.8) % unknown) (unknown) (no (unknown) (unknown) ROS Unobtainable: (units (unknown) date) All systems unknown) reviewed + are unremarkable except as noted in HPI (unknown) (no (unknown) (unknown) Referrals: (units (unk nown) date) unknown) (unknown) (no (unknown) (unknown) Related Data (units (u nknown) date) unknown) (unknown) (no (unknown) (unknown) Respiratory Rate (units (unknown) date) 18 10/16/22 02:42 unknown) (unknown) (no (unknown) (unknown) Respiratory Rate (units (unknown) date) 18 unknown) (unknown) (no (unknown) (unknown) Result diagrams: (units (unknown) date) unknown) (unknown) (no (unknown) (unknown) Review of (units (unkn own) date) Systems unknown) (unknown) (no (unknown) (unknown) Signed By: (units (unk nown) date) unknown) (unknown) (no (unknown) (unknown) Smoking Status: (units (unknown) date) Current every day unknown) smoker (unknown) (no (unknown) (unknown) Social History (units (unknown) date) (Reviewed unknown) 10/16/22 @ 03:50 by Yamileth Orlando DO) (unknown) (no (unknown) (unknown) Sodium 138 (units (unk nown) date) (137-145) mmol/L unknown) (unknown) (no (unknown) (unknown) Source: patient (units (unknown) date) and family unknown) (unknown) (no (unknown) (unknown) Stated (units (unkno wn) date) complaint: RECTAL unknown) BLEEDING (unknown) (no (unknown) (unknown) Substance Use (units ( unknown) date) Type: marijuana unknown) (unknown) (no (unknown) (unknown) Temperature 97.9 (units (unknown) date) F 10/16/22 02:42 unknown) (unknown) (no (unknown) (unknown) Temperature 97.9 (units (unknown) date) F unknown) (unknown) (no (unknown) (unknown) Time Seen by (units (u nknown) date) Provider: unknown) 10/16/22 03:17 (unknown) (no (unknown) (unknown) Total Bilirubin (units (unknown) date) 0.4 (0.2-1.3) unknown) mg/dL (unknown) (no (unknown) (unknown) Total Protein (units ( unknown) date) 6.8 (6.3-8.2) unknown) g/dL (unknown) (no (unknown) (unknown) Vital Signs - 8 (units (unknown) date) hr unknown) (unknown) (no (unknown) (unknown) Vital Signs (units (un known) date) unknown) (unknown) (no (unknown) (unknown) Vital signs: (units (u nknown) date) unknown) (unknown) (no (unknown) (unknown) WBC 8.0 (units (unkno wn) date) (4.5-11.0) unknown) X103/uL (unknown) (no (unknown) (unknown) [Embedded Image (units (unknown) date) Not Available] unknown) (unknown) (no (unknown) (unknown) alcohol intake (units (unknown) date) frequency: unknown) holidays/special occasions only (unknown) (no (unknown) (unknown) and below (units (unkn own) date) unknown) Result panel 81 (unknown) (no (unknown) (unknown) (no value) (units (unk nown) date) unknown) (unknown) (no (unknown) (unknown) 02:42 (units (unkno wn) date) unknown) (unknown) (no (unknown) (unknown) 02:55 02:55 (units (un known) date) unknown) (unknown) (no (unknown) (unknown) [id number] (units (unkno wn) date) unknown) (unknown) (no (unknown) (unknown) 1 applic OR (units (un known) date) TID-QID PRN unknown) (Reason: hemorrhoids) Qty: 10 0RF (unknown) (no (unknown) (unknown) 10/16/22 02:55 (units (unknown) date) unknown) (unknown) (no (unknown) (unknown) 10/16/22 03:22 (units (unknown) date) unknown) (unknown) (no (unknown) (unknown) 10/16/22 10/16/22 (units (unknown) date) Range/Units unknown) (unknown) (no (unknown) (unknown) 10/16/22 (units (unkno wn) date) unknown) (unknown) (no (unknown) (unknown) ABDOMEN: Soft, (units (unknown) date) nontender. unknown) Normoactive bowel sounds all 4 quadrants. No (unknown) (no (unknown) (unknown) ALT 18 (<50) IU/L (units (unknown) date) unknown) (unknown) (no (unknown) (unknown) AST 20 (17-59) (units (unknown) date) IU/L unknown) (unknown) (no (unknown) (unknown) Activity (units (unkno wn) date) Restrictions/Addit unknown) ional Instructions: (unknown) (no (unknown) (unknown) Age/Sex: 27 / M (units (unknown) date) unknown) (unknown) (no (unknown) (unknown) Albumin 4.4 (units (un known) date) (3.5-5.0) g/dL unknown) (unknown) (no (unknown) (unknown) Albumin/Globulin (units (unknown) date) Ratio 1.8 unknown) (1.0-2.8) (unknown) (no (unknown) (unknown) Alkaline (units (unkno wn) date) Phosphatase 78 unknown) (38-126) U/L (unknown) (no (unknown) (unknown) Allergies (units (unkn own) date) unknown) (unknown) (no (unknown) (unknown) Allergy/AdvReac (units (unknown) date) Type Severity unknown) Reaction Status Date / Time (unknown) (no (unknown) (unknown) BUN 12 (9-20) (units ( unknown) date) mg/dL unknown) (unknown) (no (unknown) (unknown) BUN/Creatinine (units (unknown) date) Ratio 18.2 (6-22) unknown) (unknown) (no (unknown) (unknown) Baso # (Auto) 100 (units (unknown) date) (0-100) /uL unknown) (unknown) (no (unknown) (unknown) Baso % (Auto) 0.8 (units (unknown) date) (0-2) % unknown) (unknown) (no (unknown) (unknown) Blood Pressure (units (unknown) date) 124/64 18 unknown) 02:42 (unknown) (no (unknown) (unknown) Blood Pressure (units (unknown) date) 124/64 unknown) (unknown) (no (unknown) (unknown) CARDIOVASCULAR: (units (unknown) date) Regular rate and unknown) rhythm without murmurs, rubs or gallops. 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 [Primary Care unknown) Provider] (unknown) (no (unknown) (unknown) Chief complaint: (units (unknown) date) GI Bleed unknown) (unknown) (no (unknown) (unknown) Chloride 104 (units (u nknown) date) (98-107) mmol/L unknown) (unknown) (no (unknown) (unknown) Clinical (units (unkno wn) date) Impression: unknown) (unknown) (no (unknown) (unknown) Complete Blood (units (unknown) date) Count AUTO DIFF unknown) Stat (unknown) (no (unknown) (unknown) Comprehensive (units ( unknown) date) Metabolic Panel unknown) Stat (unknown) (no (unknown) (unknown) Course (units (unkno wn) date) unknown) (unknown) (no (unknown) (unknown) Creatinine 0.66 (units (unknown) date) (0.66-1.25) mg/dL unknown) (unknown) (no (unknown) (unknown) : 1995 (units (unknown) date) Acct:[id number] unknown) (unknown) (no (unknown) (unknown) Date of Service: (units (unknown) date) 10/16/22 unknown) (unknown) (no (unknown) (unknown) Departure (units (unkn own) date) unknown) (unknown) (no (unknown) (unknown) Discharge Plan (units (unknown) date) unknown) (unknown) (no (unknown) (unknown) ED Orders (units (unkn own) date) unknown) (unknown) (no (unknown) (unknown) ER Physician: (units ( unknown) date) Yamileth Orlando D.O. unknown) (unknown) (no (unknown) (unknown) EXTREMITIES: (units (u nknown) date) Normal range of unknown) motion, no clubbing or edema. Neurovascularly (unknown) (no (unknown) (unknown) Emergency Report (units (unknown) date) unknown) (unknown) (no (unknown) (unknown) Eos # (Auto) 100 (units (unknown) date) (0-450) /uL unknown) (unknown) (no (unknown) (unknown) Eos % (Auto) 1.6 (units (unknown) date) L (2-4) % unknown) (unknown) (no (unknown) (unknown) Estimated GFR > (units (unknown) date) 60 (>60) mL/min unknown) (unknown) (no (unknown) (unknown) Exam Narrative: (units (unknown) date) unknown) (unknown) (no (unknown) (unknown) Exam (units (unkno wn) date) unknown) (unknown) (no (unknown) (unknown) GENERAL: Alert (units (unknown) date) and oriented x unknown) three, male in mild distress. (unknown) (no (unknown) (unknown) : No CVA (units (unk nown) date) tenderness unknown) (unknown) (no (unknown) (unknown) General (units (unkno wn) date) unknown) (unknown) (no (unknown) (unknown) Globulin 2.4 (units (u nknown) date) (1.7-4.1) g/dL unknown) (unknown) (no (unknown) (unknown) Glucose 107 H (units ( unknown) date) (70-100) mg/dL unknown) (unknown) (no (unknown) (unknown) HEENT: Head (units (un known) date) normocephalic, unknown) atraumatic, EOMI, pupils reactive, face symmetric, (unknown) (no (unknown) (unknown) HPI - GI Bleed (units (unknown) date) unknown) (unknown) (no (unknown) (unknown) HPI Narrative: (units (unknown) date) unknown) (unknown) (no (unknown) (unknown) Hct 41.4 (41-53) (units (unknown) date) % unknown) (unknown) (no (unknown) (unknown) Hemorrhoids (units (un known) date) unknown) (unknown) (no (unknown) (unknown) Hgb 14.4 (units (unkno wn) date) (13.5-17.5) g/dL unknown) (unknown) (no (unknown) (unknown) History of (units (unk nown) date) Present Illness unknown) (unknown) (no (unknown) (unknown) I recommend (units (un known) date) increasing her unknown) fiber intake, fruits, vegetables, high-fiber foods (unknown) (no (unknown) (unknown) Initial Vital (units ( unknown) date) Signs unknown) (unknown) (no (unknown) (unknown) Initial Vital (units ( unknown) date) Signs: unknown) (unknown) (no (unknown) (unknown) Instructions: DI (units (unknown) date) for Hemorrhoids unknown) (unknown) (no (unknown) (unknown) [facility] (units (unknown) date) [address] unknown) [place] [address] (unknown) (no (unknown) (unknown) Lab Data (units (unkno wn) date) unknown) (unknown) (no (unknown) (unknown) Lab Results (units (un known) date) unknown) (unknown) (no (unknown) (unknown) Labs: (units (unkno wn) date) unknown) (unknown) (no (unknown) (unknown) Limitations: no (units (unknown) date) limitations unknown) (unknown) (no (unknown) (unknown) Lipase 81 (units (unkn own) date) (23-300) U/L unknown) (unknown) (no (unknown) (unknown) Lipase Stat (units (un known) date) unknown) (unknown) (no (unknown) (unknown) Lymph # (Auto) (units (unknown) date) 2700 (2469-0920) unknown) /uL (unknown) (no (unknown) (unknown) Lymph % (Auto) (units (unknown) date) 34.2 (25-40) % unknown) (unknown) (no (unknown) (unknown) MCH 29.5 (26-34) (units (unknown) date) PG unknown) (unknown) (no (unknown) (unknown) MCHC 34.7 (30-36) (units (unknown) date) % unknown) (unknown) (no (unknown) (unknown) MCV 85.2 (80-100) (units (unknown) date) fL unknown) (unknown) (no (unknown) (unknown) MDM - GI Bleed (units (unknown) date) unknown) (unknown) (no (unknown) (unknown) MDM Narrative (units ( unknown) date) unknown) (unknown) (no (unknown) (unknown) Medical History (units (unknown) date) (Reviewed 10/16/22 unknown) @ 04:06 by Yamileth Orlando DO) (unknown) (no (unknown) (unknown) Medical decision (units (unknown) date) making narrative: unknown) (unknown) (no (unknown) (unknown) Medication (units (unk nown) date) Instructions unknown) Recorded (unknown) (no (unknown) (unknown) Mode of arrival: (units (unknown) date) Ambulatory unknown) (unknown) (no (unknown) (unknown) Randall # (Auto) 600 (units (unknown) date) (0-900) /uL unknown) (unknown) (no (unknown) (unknown) Randall % (Auto) 7.8 (units (unknown) date) (3-14) % unknown) (unknown) (no (unknown) (unknown) NECK: Supple, (units ( unknown) date) full range of unknown) motion (unknown) (no (unknown) (unknown) NEUROLOGICAL: (units ( unknown) date) Cranial nerves II unknown) through XII grossly intact. Moving all (unknown) (no (unknown) (unknown) Narrative (units (unkn own) date) unknown) (unknown) (no (unknown) (unknown) Neut # (Auto) (units ( unknown) date) 4500 (8412-2783) unknown) /uL (unknown) (no (unknown) (unknown) Neut % (Auto) (units ( unknown) date) 55.6 (50-75) % unknown) (unknown) (no (unknown) (unknown) New (units (unkno wn) date) unknown) (unknown) (no (unknown) (unknown) No Known Drug (units ( unknown) date) Allergies Allergy unknown) Verified 09/21/21 12:43 (unknown) (no (unknown) (unknown) No nausea or (units (u nknown) date) vomiting. No unknown) fevers or chills. He denies any intra-abdominal (unknown) (no (unknown) (unknown) No thrombosis or (units (unknown) date) clot appreciated. unknown) (unknown) (no (unknown) (unknown) Ordered: (units (unkno wn) date) unknown) (unknown) (no (unknown) (unknown) Orders (units (unkno wn) date) unknown) (unknown) (no (unknown) (unknown) Oxygen Delivery (units (unknown) date) Method 10/16/22 unknown) 02:42 (unknown) (no (unknown) (unknown) Oxygen Delivery (units (unknown) date) Method Room Air unknown) (unknown) (no (unknown) (unknown) Patient (units (unkno wn) date) Disposition: Home unknown) (unknown) (no (unknown) (unknown) Patient History (units (unknown) date) unknown) (unknown) (no (unknown) (unknown) Patient denies (units (unknown) date) medical problems unknown) (unknown) (no (unknown) (unknown) Patient: (units (unkno wn) date) Fouzia Simmons unknown) MR#: [id number] (unknown) (no (unknown) (unknown) Please follow-up (units (unknown) date) if you are having unknown) persistent issues or symptoms. (unknown) (no (unknown) (unknown) Please increase (units (unknown) date) your fluid intake unknown) make sure you are drinking 8 glasses of water (unknown) (no (unknown) (unknown) Please return for (units (unknown) date) worsening unknown) symptoms, increasing bleeding, large clots, new (unknown) (no (unknown) (unknown) Please take a (units ( unknown) date) Colace 1-2 times unknown) daily until stools are soft. You do need to (unknown) (no (unknown) (unknown) Plt Count 231 (units ( unknown) date) (150-400) X103/uL unknown) (unknown) (no (unknown) (unknown) Potassium 3.7 (units ( unknown) date) (3.4-5.1) mmol/L unknown) (unknown) (no (unknown) (unknown) Prescription for (units (unknown) date) Proctofoam is sent unknown) to [facility] [place]. (unknown) (no (unknown) (unknown) Prescriptions: (units (unknown) date) unknown) (unknown) (no (unknown) (unknown) Previous Rx's (units ( unknown) date) unknown) (unknown) (no (unknown) (unknown) Proctofoam HC 1-1 (units (unknown) date) % foam unknown) (unknown) (no (unknown) (unknown) Pulse Oximetry 96 (units (unknown) date) 10/16/22 02:42 unknown) (unknown) (no (unknown) (unknown) Pulse Oximetry 96 (units (unknown) date) unknown) (unknown) (no (unknown) (unknown) Pulse Rate 70 (units ( unknown) date) 10/16/22 02:42 unknown) (unknown) (no (unknown) (unknown) Pulse Rate 70 (units ( unknown) date) unknown) (unknown) (no (unknown) (unknown) RBC 4.86 (units (unkno wn) date) (4.5-5.9) X106/uL unknown) (unknown) (no (unknown) (unknown) RDW 12.3 (units (unkno wn) date) (11.6-14.8) % unknown) (unknown) (no (unknown) (unknown) RESPIRATORY: (units (u nknown) date) Breath sounds unknown) equal bilaterally, no wheezes rales or rhonchi. (unknown) (no (unknown) (unknown) ROS Unobtainable: (units (unknown) date) All systems unknown) reviewed + are unremarkable except as noted in HPI (unknown) (no (unknown) (unknown) Referrals: (units (unk nown) date) unknown) (unknown) (no (unknown) (unknown) Related Data (units (u nknown) date) unknown) (unknown) (no (unknown) (unknown) Respiratory Rate (units (unknown) date) 18 10/16/22 02:42 unknown) (unknown) (no (unknown) (unknown) Respiratory Rate (units (unknown) date) 18 unknown) (unknown) (no (unknown) (unknown) Result diagrams: (units (unknown) date) unknown) (unknown) (no (unknown) (unknown) Review of Systems (units (unknown) date) unknown) (unknown) (no (unknown) (unknown) SKIN: Warm, dry, (units (unknown) date) no petechiae, no unknown) rashes or lesions. (unknown) (no (unknown) (unknown) Signed By: (units (unk nown) date) unknown) (unknown) (no (unknown) (unknown) Smoking Status: (units (unknown) date) Current every day unknown) smoker (unknown) (no (unknown) (unknown) Social History (units (unknown) date) (Reviewed 10/16/22 unknown) @ 04:06 by Yamileth Orlando DO) (unknown) (no (unknown) (unknown) Sodium 138 (units (unk nown) date) (137-145) mmol/L unknown) (unknown) (no (unknown) (unknown) Source: patient (units (unknown) date) and family unknown) (unknown) (no (unknown) (unknown) Stated complaint: (units (unknown) date) RECTAL BLEEDING unknown) (unknown) (no (unknown) (unknown) Substance Use (units ( unknown) date) Type: marijuana unknown) (unknown) (no (unknown) (unknown) Temperature 97.9 (units (unknown) date) F 10/16/22 02:42 unknown) (unknown) (no (unknown) (unknown) Temperature 97.9 (units (unknown) date) F unknown) (unknown) (no (unknown) (unknown) This is a (units (unkn own) date) 27-year-old male unknown) with hemorrhoid likely source of his bleeding, it (unknown) (no (unknown) (unknown) This is a (units (unkn own) date) 27-year-old male unknown) with history of mood disorder, PTSD, prior kidney (unknown) (no (unknown) (unknown) Time Seen by (units (u nknown) date) Provider: 10/16/22 unknown) 03:17 (unknown) (no (unknown) (unknown) Total Bilirubin (units (unknown) date) 0.4 (0.2-1.3) unknown) mg/dL (unknown) (no (unknown) (unknown) Total Protein 6.8 (units (unknown) date) (6.3-8.2) g/dL unknown) (unknown) (no (unknown) (unknown) Use Sitz baths or (units (unknown) date) warm baths or unknown) showers to the affected area 2 or 3 times daily. (unknown) (no (unknown) (unknown) Vital Signs - 8 (units (unknown) date) hr unknown) (unknown) (no (unknown) (unknown) Vital Signs (units (un known) date) unknown) (unknown) (no (unknown) (unknown) Vital signs: (units (u nknown) date) unknown) (unknown) (no (unknown) (unknown) WBC 8.0 (units (unkno wn) date) (4.5-11.0) X103/uL unknown) (unknown) (no (unknown) (unknown) You may use (units (un known) date) Proctofoam unknown) topically to the hemorrhoid 4 times daily as needed. (unknown) (no (unknown) (unknown) [Embedded Image (units (unknown) date) Not Available] unknown) (unknown) (no (unknown) (unknown) abdominal pain, (units (unknown) date) fevers, persistent unknown) vomiting, black tarry stools, passing out or (unknown) (no (unknown) (unknown) after being on (units (unknown) date) [place] he has not unknown) been on any form of stool softeners. He is not (unknown) (no (unknown) (unknown) alcohol intake (units (unknown) date) frequency: unknown) holidays/special occasions only (unknown) (no (unknown) (unknown) and below (units (unkn own) date) unknown) (unknown) (no (unknown) (unknown) and even soak (units ( unknown) date) through his unknown) underwear or if he has flatus. Patient has felt a (unknown) (no (unknown) (unknown) appears to have (units (unknown) date) bled recently. He unknown) has been having quite constipated stools (unknown) (no (unknown) (unknown) are helpful to (units (unknown) date) improve unknown) constipation. (unknown) (no (unknown) (unknown) available (units (unkn own) date) [id number]. unknown) (unknown) (no (unknown) (unknown) daily. (units (unkno wn) date) unknown) (unknown) (no (unknown) (unknown) days from his (units ( unknown) date) dentist. He is unknown) accompanied by his father today. (unknown) (no (unknown) (unknown) days. Patient (units ( unknown) date) states he is unknown) noticed an area of swelling at the rectum, states it (unknown) (no (unknown) (unknown) describes as very (units (unknown) date) hard and pebbly unknown) for the last week but sometimes it will ooze (unknown) (no (unknown) (unknown) discussed that (units (unknown) date) narcotics can unknown) cause constipation and ways to avoid this problem. (unknown) (no (unknown) (unknown) drink water while (units (unknown) date) taking this unknown) medication for it to be effective. This is (unknown) (no (unknown) (unknown) drug allergies. (units (unknown) date) Patient does note unknown) he has been taking [place] until the last 2 (unknown) (no (unknown) (unknown) extremities (units (un known) date) unknown) (unknown) (no (unknown) (unknown) good about (units (unk nown) date) drinking fluids he unknown) states. Patient labs are overall reassuring (unknown) (no (unknown) (unknown) guarding or (units (un known) date) rebound, rigidity, unknown) no mass, on rectal exam patient has medium size (unknown) (no (unknown) (unknown) hydrocortisone 1 (units (unknown) date) %-pramoxine 1 % 1 unknown) applic OR TID-QID PRN 10/16/22 (unknown) (no (unknown) (unknown) intact (units (unkno wn) date) unknown) (unknown) (no (unknown) (unknown) is tender, it has (units (unknown) date) been bleeding unknown) typically when he has a bowel movement which he (unknown) (no (unknown) (unknown) little (units (unkno wn) date) lightheaded no unknown) passing out. He denies chest pain or shortness of breath. (unknown) (no (unknown) (unknown) moist mucous (units (u nknown) date) membranes unknown) (unknown) (no (unknown) (unknown) not on any daily (units (unknown) date) thinners. He is unknown) had lithotripsy for kidney stone. No known (unknown) (no (unknown) (unknown) or other changes (units (unknown) date) that would make me unknown) suspicious that he needs further workup at (unknown) (no (unknown) (unknown) other new or (units (u nknown) date) concerning unknown) changes. (unknown) (no (unknown) (unknown) pain. Patient has (units (unknown) date) not had similar unknown) symptoms in the past. He denies any urinary (unknown) (no (unknown) (unknown) patient exam (units (u nknown) date) otherwise is unknown) reassuring and he has not had fevers, abdominal pain (unknown) (no (unknown) (unknown) rectal foam (units (un known) date) (Proctofoam HC) unknown) hemorrhoids #10 grams (unknown) (no (unknown) (unknown) soft hemorrhoid (units (unknown) date) no active bleeding unknown) but there is some dried blood at the site. (unknown) (no (unknown) (unknown) stones who (units (unk nown) date) presents with unknown) rectal pain bleeding that has been going on for 2 or 3 (unknown) (no (unknown) (unknown) such as Colace, (units (unknown) date) Proctofoam unknown) rectally, Sitz bath or warm soaks for treatment and (unknown) (no (unknown) (unknown) symptoms no (units (un known) date) dysuria urgency or unknown) frequency. No black or tarry stools. Patient is (unknown) (no (unknown) (unknown) this time. (units (unk nown) date) Discussed unknown) increasing oral fluids, high-fiber diet, stool softener (unknown) (no (unknown) (unknown) we discussed (units (u nknown) date) return unknown) precautions. Patient is no longer taking [place] and we Result panel 82 (unknown) (no (unknown) (unknown) (no value) (units (unk nown) date) unknown) (unknown) (no (unknown) (unknown) <Electronically (units (unknown) date) signed by Yamileth Yin unknown) August Orlando> (unknown) (no (unknown) (unknown) 02:42 10/16/22 (units (unknown) date) unknown) (unknown) (no (unknown) (unknown) 02:55 02:55 (units (un known) date) unknown) (unknown) (no (unknown) (unknown) 03:04 (units (unkno wn) date) unknown) (unknown) (no (unknown) (unknown) 03:30 10/16/22 (units (unknown) date) unknown) (unknown) (no (unknown) (unknown) [id number] (units (unkno wn) date) unknown) (unknown) (no (unknown) (unknown) 04:00 (units (unkno wn) date) unknown) (unknown) (no (unknown) (unknown) 04:20 10/16/22 (units (unknown) date) unknown) (unknown) (no (unknown) (unknown) 1 applic OR (units (un known) date) TID-QID PRN unknown) (Reason: hemorrhoids) Qty: 10 0RF (unknown) (no (unknown) (unknown) 10/16/22 02:55 (units (unknown) date) unknown) (unknown) (no (unknown) (unknown) 10/16/22 0554 (units ( unknown) date) unknown) (unknown) (no (unknown) (unknown) 10/16/22 10/16/22 (units (unknown) date) Range/Units unknown) (unknown) (no (unknown) (unknown) 10/16/22 (units (unkno wn) date) unknown) (unknown) (no (unknown) (unknown) ABDOMEN: Soft, (units (unknown) date) nontender. unknown) Normoactive bowel sounds all 4 quadrants. No (unknown) (no (unknown) (unknown) ALT 18 (<50) IU/L (units (unknown) date) unknown) (unknown) (no (unknown) (unknown) AST 20 (17-59) (units (unknown) date) IU/L unknown) (unknown) (no (unknown) (unknown) Activity (units (unkno wn) date) Restrictions/Addit unknown) ional Instructions: (unknown) (no (unknown) (unknown) Age/Sex: 27 / M (units (unknown) date) unknown) (unknown) (no (unknown) (unknown) Albumin 4.4 (units (un known) date) (3.5-5.0) g/dL unknown) (unknown) (no (unknown) (unknown) Albumin/Globulin (units (unknown) date) Ratio 1.8 unknown) (1.0-2.8) (unknown) (no (unknown) (unknown) Alkaline (units (unkno wn) date) Phosphatase 78 unknown) (38-126) U/L (unknown) (no (unknown) (unknown) Allergies (units (unkn own) date) unknown) (unknown) (no (unknown) (unknown) Allergy/AdvReac (units (unknown) date) Type Severity unknown) Reaction Status Date / Time (unknown) (no (unknown) (unknown) BUN 12 (9-20) (units ( unknown) date) mg/dL unknown) (unknown) (no (unknown) (unknown) BUN/Creatinine (units (unknown) date) Ratio 18.2 (6-22) unknown) (unknown) (no (unknown) (unknown) Baso # (Auto) 100 (units (unknown) date) (0-100) /uL unknown) (unknown) (no (unknown) (unknown) Baso % (Auto) 0.8 (units (unknown) date) (0-2) % unknown) (unknown) (no (unknown) (unknown) Blood Pressure (units (unknown) date) 124/64 10/16/22 unknown) 02:42 (unknown) (no (unknown) (unknown) Blood Pressure (units (unknown) date) 124/64 unknown) (unknown) (no (unknown) (unknown) CARDIOVASCULAR: (units (unknown) date) Regular rate and unknown) rhythm without murmurs, rubs or gallops. 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 [Primary Care unknown) Provider] (unknown) (no (unknown) (unknown) Chief complaint: (units (unknown) date) GI Bleed unknown) (unknown) (no (unknown) (unknown) Chloride 104 (units (u nknown) date) (98-107) mmol/L unknown) (unknown) (no (unknown) (unknown) Clinical (units (unkno wn) date) Impression: unknown) (unknown) (no (unknown) (unknown) Complete Blood (units (unknown) date) Count AUTO DIFF unknown) Stat (unknown) (no (unknown) (unknown) Comprehensive (units ( unknown) date) Metabolic Panel unknown) Stat (unknown) (no (unknown) (unknown) Course (units (unkno wn) date) unknown) (unknown) (no (unknown) (unknown) Creatinine 0.66 (units (unknown) date) (0.66-1.25) mg/dL unknown) (unknown) (no (unknown) (unknown) : 1995 (units (unknown) date) Acct:[id number] unknown) (unknown) (no (unknown) (unknown) Date of Service: (units (unknown) date) 10/16/22 unknown) (unknown) (no (unknown) (unknown) Departure (units (unkn own) date) unknown) (unknown) (no (unknown) (unknown) Discharge Plan (units (unknown) date) unknown) (unknown) (no (unknown) (unknown) ED Orders (units (unkn own) date) unknown) (unknown) (no (unknown) (unknown) ER Physician: (units ( unknown) date) Yamileth Orlando D.O. unknown) (unknown) (no (unknown) (unknown) EXTREMITIES: (units (u nknown) date) Normal range of unknown) motion, no clubbing or edema. Neurovascularly (unknown) (no (unknown) (unknown) Emergency Report (units (unknown) date) unknown) (unknown) (no (unknown) (unknown) Eos # (Auto) 100 (units (unknown) date) (0-450) /uL unknown) (unknown) (no (unknown) (unknown) Eos % (Auto) 1.6 (units (unknown) date) L (2-4) % unknown) (unknown) (no (unknown) (unknown) Estimated GFR > (units (unknown) date) 60 (>60) mL/min unknown) (unknown) (no (unknown) (unknown) Exam Narrative: (units (unknown) date) unknown) (unknown) (no (unknown) (unknown) Exam (units (unkno wn) date) unknown) (unknown) (no (unknown) (unknown) GENERAL: Alert (units (unknown) date) and oriented x unknown) three, male in mild distress. (unknown) (no (unknown) (unknown) : No CVA (units (unk nown) date) tenderness unknown) (unknown) (no (unknown) (unknown) General (units (unkno wn) date) unknown) (unknown) (no (unknown) (unknown) Globulin 2.4 (units (u nknown) date) (1.7-4.1) g/dL unknown) (unknown) (no (unknown) (unknown) Glucose 107 H (units ( unknown) date) (70-100) mg/dL unknown) (unknown) (no (unknown) (unknown) HEENT: Head (units (un known) date) normocephalic, unknown) atraumatic, EOMI, pupils reactive, face symmetric, (unknown) (no (unknown) (unknown) HPI - GI Bleed (units (unknown) date) unknown) (unknown) (no (unknown) (unknown) HPI Narrative: (units (unknown) date) unknown) (unknown) (no (unknown) (unknown) Hct 41.4 (41-53) (units (unknown) date) % unknown) (unknown) (no (unknown) (unknown) Hemorrhoids (units (un known) date) unknown) (unknown) (no (unknown) (unknown) Hgb 14.4 (units (unkno wn) date) (13.5-17.5) g/dL unknown) (unknown) (no (unknown) (unknown) History of (units (unk nown) date) Present Illness unknown) (unknown) (no (unknown) (unknown) I recommend (units (un known) date) increasing her unknown) fiber intake, fruits, vegetables, high-fiber foods (unknown) (no (unknown) (unknown) Initial Vital (units ( unknown) date) Signs unknown) (unknown) (no (unknown) (unknown) Initial Vital (units ( unknown) date) Signs: unknown) (unknown) (no (unknown) (unknown) Instructions: DI (units (unknown) date) for Hemorrhoids unknown) (unknown) (no (unknown) (unknown) [facility] (units (unknown) date) [address] unknown) [place] [address] (unknown) (no (unknown) (unknown) Lab Data (units (unkno wn) date) unknown) (unknown) (no (unknown) (unknown) Lab Results (units (un known) date) unknown) (unknown) (no (unknown) (unknown) Labs: (units (unkno wn) date) unknown) (unknown) (no (unknown) (unknown) Limitations: no (units (unknown) date) limitations unknown) (unknown) (no (unknown) (unknown) Lipase 81 (units (unkn own) date) (23-300) U/L unknown) (unknown) (no (unknown) (unknown) Lipase Stat (units (un known) date) unknown) (unknown) (no (unknown) (unknown) Lymph # (Auto) (units (unknown) date) 2700 ([id number]) unknown) /uL (unknown) (no (unknown) (unknown) Lymph % (Auto) (units (unknown) date) 34.2 (25-40) % unknown) (unknown) (no (unknown) (unknown) MCH 29.5 (26-34) (units (unknown) date) PG unknown) (unknown) (no (unknown) (unknown) MCHC 34.7 (30-36) (units (unknown) date) % unknown) (unknown) (no (unknown) (unknown) MCV 85.2 (80-100) (units (unknown) date) fL unknown) (unknown) (no (unknown) (unknown) MDM - GI Bleed (units (unknown) date) unknown) (unknown) (no (unknown) (unknown) MDM Narrative (units ( unknown) date) unknown) (unknown) (no (unknown) (unknown) Medical History (units (unknown) date) (Reviewed 10/16/22 unknown) @ 04:06 by Yamileth Orlando DO) (unknown) (no (unknown) (unknown) Medical decision (units (unknown) date) making narrative: unknown) (unknown) (no (unknown) (unknown) Medication (units (unk nown) date) Instructions unknown) Recorded (unknown) (no (unknown) (unknown) Mode of arrival: (units (unknown) date) Ambulatory unknown) (unknown) (no (unknown) (unknown) Randall # (Auto) 600 (units (unknown) date) (0-900) /uL unknown) (unknown) (no (unknown) (unknown) Randall % (Auto) 7.8 (units (unknown) date) (3-14) % unknown) (unknown) (no (unknown) (unknown) NECK: Supple, (units ( unknown) date) full range of unknown) motion (unknown) (no (unknown) (unknown) NEUROLOGICAL: (units ( unknown) date) Cranial nerves II unknown) through XII grossly intact. Moving all (unknown) (no (unknown) (unknown) Narrative (units (unkn own) date) unknown) (unknown) (no (unknown) (unknown) Neut # (Auto) (units ( unknown) date) 4500 (1676-0251) unknown) /uL (unknown) (no (unknown) (unknown) Neut % (Auto) (units ( unknown) date) 55.6 (50-75) % unknown) (unknown) (no (unknown) (unknown) New (units (unkno wn) date) unknown) (unknown) (no (unknown) (unknown) No Known Drug (units ( unknown) date) Allergies Allergy unknown) Verified 09/21/21 12:43 (unknown) (no (unknown) (unknown) No nausea or (units (u nknown) date) vomiting. No unknown) fevers or chills. He denies any intra-abdominal (unknown) (no (unknown) (unknown) No thrombosis or (units (unknown) date) clot appreciated. unknown) (unknown) (no (unknown) (unknown) Ordered: (units (unkno wn) date) unknown) (unknown) (no (unknown) (unknown) Orders (units (unkno wn) date) unknown) (unknown) (no (unknown) (unknown) Oxygen Delivery (units (unknown) date) Method 10/16/22 unknown) 02:42 (unknown) (no (unknown) (unknown) Oxygen Delivery (units (unknown) date) Method Room Air unknown) Room Air (unknown) (no (unknown) (unknown) Oxygen Delivery (units (unknown) date) Method unknown) (unknown) (no (unknown) (unknown) Patient (units (unkno wn) date) Disposition: Home unknown) (unknown) (no (unknown) (unknown) Patient History (units (unknown) date) unknown) (unknown) (no (unknown) (unknown) Patient denies (units (unknown) date) medical problems unknown) (unknown) (no (unknown) (unknown) Patient: (units (unkno wn) date) Fouzia Simmons unknown) MR#: [id number] (unknown) (no (unknown) (unknown) Please follow-up (units (unknown) date) if you are having unknown) persistent issues or symptoms. (unknown) (no (unknown) (unknown) Please increase (units (unknown) date) your fluid intake unknown) make sure you are drinking 8 glasses of water (unknown) (no (unknown) (unknown) Please return for (units (unknown) date) worsening unknown) symptoms, increasing bleeding, large clots, new (unknown) (no (unknown) (unknown) Please take a (units ( unknown) date) Colace 1-2 times unknown) daily until stools are soft. You do need to (unknown) (no (unknown) (unknown) Plt Count 231 (units ( unknown) date) (150-400) X103/uL unknown) (unknown) (no (unknown) (unknown) Potassium 3.7 (units ( unknown) date) (3.4-5.1) mmol/L unknown) (unknown) (no (unknown) (unknown) Prescription for (units (unknown) date) Proctofoam is sent unknown) to [facility] in [place]. (unknown) (no (unknown) (unknown) Prescriptions: (units (unknown) date) unknown) (unknown) (no (unknown) (unknown) Previous Rx's (units ( unknown) date) unknown) (unknown) (no (unknown) (unknown) Proctofoam HC 1-1 (units (unknown) date) % foam unknown) (unknown) (no (unknown) (unknown) Pulse Oximetry 96 (units (unknown) date) 10/16/22 02:42 unknown) (unknown) (no (unknown) (unknown) Pulse Oximetry 96 (units (unknown) date) 98 unknown) (unknown) (no (unknown) (unknown) Pulse Oximetry 97 (units (unknown) date) 98 unknown) (unknown) (no (unknown) (unknown) Pulse Rate 66 58 (units (unknown) date) L unknown) (unknown) (no (unknown) (unknown) Pulse Rate 70 (units ( unknown) date) 10/16/22 02:42 unknown) (unknown) (no (unknown) (unknown) Pulse Rate 70 70 (units (unknown) date) unknown) (unknown) (no (unknown) (unknown) RBC 4.86 (units (unkno wn) date) (4.5-5.9) X106/uL unknown) (unknown) (no (unknown) (unknown) RDW 12.3 (units (unkno wn) date) (11.6-14.8) % unknown) (unknown) (no (unknown) (unknown) RESPIRATORY: (units (u nknown) date) Breath sounds unknown) equal bilaterally, no wheezes rales or rhonchi. (unknown) (no (unknown) (unknown) ROS Unobtainable: (units (unknown) date) All systems unknown) reviewed + are unremarkable except as noted in HPI (unknown) (no (unknown) (unknown) Referrals: (units (unk nown) date) unknown) (unknown) (no (unknown) (unknown) Related Data (units (u nknown) date) unknown) (unknown) (no (unknown) (unknown) Respiratory Rate (units (unknown) date) 16 unknown) (unknown) (no (unknown) (unknown) Respiratory Rate (units (unknown) date) 18 10/16/22 02:42 unknown) (unknown) (no (unknown) (unknown) Respiratory Rate (units (unknown) date) 18 unknown) (unknown) (no (unknown) (unknown) Result diagrams: (units (unknown) date) unknown) (unknown) (no (unknown) (unknown) Review of Systems (units (unknown) date) unknown) (unknown) (no (unknown) (unknown) SKIN: Warm, dry, (units (unknown) date) no petechiae, no unknown) rashes or lesions. (unknown) (no (unknown) (unknown) Signed By: (units (unk nown) date) unknown) (unknown) (no (unknown) (unknown) Smoking Status: (units (unknown) date) Current every day unknown) smoker (unknown) (no (unknown) (unknown) Social History (units (unknown) date) (Reviewed 10/16/22 unknown) @ 04:06 by Yamileth Orlando DO) (unknown) (no (unknown) (unknown) Sodium 138 (units (unk nown) date) (137-145) mmol/L unknown) (unknown) (no (unknown) (unknown) Source: patient (units (unknown) date) and family unknown) (unknown) (no (unknown) (unknown) Stated complaint: (units (unknown) date) RECTAL BLEEDING unknown) (unknown) (no (unknown) (unknown) Substance Use (units ( unknown) date) Type: marijuana unknown) (unknown) (no (unknown) (unknown) Temperature 97.2 (units (unknown) date) F L unknown) (unknown) (no (unknown) (unknown) Temperature 97.9 (units (unknown) date) F 10/16/22 02:42 unknown) (unknown) (no (unknown) (unknown) Temperature 97.9 (units (unknown) date) F unknown) (unknown) (no (unknown) (unknown) This is a (units (unkn own) date) 27-year-old male unknown) with hemorrhoid likely source of his bleeding, it (unknown) (no (unknown) (unknown) This is a (units (unkn own) date) 27-year-old male unknown) with history of mood disorder, PTSD, prior kidney (unknown) (no (unknown) (unknown) Time Seen by (units (u nknown) date) Provider: 10/16/22 unknown) 03:17 (unknown) (no (unknown) (unknown) Total Bilirubin (units (unknown) date) 0.4 (0.2-1.3) unknown) mg/dL (unknown) (no (unknown) (unknown) Total Protein 6.8 (units (unknown) date) (6.3-8.2) g/dL unknown) (unknown) (no (unknown) (unknown) Use Sitz baths or (units (unknown) date) warm baths or unknown) showers to the affected area 2 or 3 times daily. (unknown) (no (unknown) (unknown) Visit Report (units (u nknown) date) Forms: Patient unknown) Portal/API (unknown) (no (unknown) (unknown) Vital Signs - 8 (units (unknown) date) hr unknown) (unknown) (no (unknown) (unknown) Vital Signs (units (un known) date) unknown) (unknown) (no (unknown) (unknown) Vital signs: (units (u nknown) date) unknown) (unknown) (no (unknown) (unknown) WBC 8.0 (units (unkno wn) date) (4.5-11.0) X103/uL unknown) (unknown) (no (unknown) (unknown) You may use (units (un known) date) Proctofoam unknown) topically to the hemorrhoid 4 times daily as needed. (unknown) (no (unknown) (unknown) [Embedded Image (units (unknown) date) Not Available] unknown) (unknown) (no (unknown) (unknown) abdominal pain, (units (unknown) date) fevers, persistent unknown) vomiting, black tarry stools, passing out or (unknown) (no (unknown) (unknown) after being on (units (unknown) date) [place] he has not unknown) been on any form of stool softeners. He is not (unknown) (no (unknown) (unknown) alcohol intake (units (unknown) date) frequency: unknown) holidays/special occasions only (unknown) (no (unknown) (unknown) and below (units (unkn own) date) unknown) (unknown) (no (unknown) (unknown) and even soak (units ( unknown) date) through his unknown) underwear or if he has flatus. Patient has felt a (unknown) (no (unknown) (unknown) appears to have (units (unknown) date) bled recently. He unknown) has been having quite constipated stools (unknown) (no (unknown) (unknown) are helpful to (units (unknown) date) improve unknown) constipation. (unknown) (no (unknown) (unknown) available (units (unkn own) date) [id number]. unknown) (unknown) (no (unknown) (unknown) daily. (units (unkno wn) date) unknown) (unknown) (no (unknown) (unknown) days from his (units ( unknown) date) dentist. He is unknown) accompanied by his father today. (unknown) (no (unknown) (unknown) days. Patient (units ( unknown) date) states he is unknown) noticed an area of swelling at the rectum, states it (unknown) (no (unknown) (unknown) describes as very (units (unknown) date) hard and pebbly unknown) for the last week but sometimes it will ooze (unknown) (no (unknown) (unknown) discussed that (units (unknown) date) narcotics can unknown) cause constipation and ways to avoid this problem. (unknown) (no (unknown) (unknown) drink water while (units (unknown) date) taking this unknown) medication for it to be effective. This is (unknown) (no (unknown) (unknown) drug allergies. (units (unknown) date) Patient does note unknown) he has been taking [place] until the last 2 (unknown) (no (unknown) (unknown) extremities (units (un known) date) unknown) (unknown) (no (unknown) (unknown) good about (units (unk nown) date) drinking fluids he unknown) states. Patient labs are overall reassuring (unknown) (no (unknown) (unknown) guarding or (units (un known) date) rebound, rigidity, unknown) no mass, on rectal exam patient has medium size (unknown) (no (unknown) (unknown) hydrocortisone 1 (units (unknown) date) %-pramoxine 1 % 1 unknown) applic OR TID-QID PRN 10/16/22 (unknown) (no (unknown) (unknown) intact (units (unkno wn) date) unknown) (unknown) (no (unknown) (unknown) is tender, it has (units (unknown) date) been bleeding unknown) typically when he has a bowel movement which he (unknown) (no (unknown) (unknown) little (units (unkno wn) date) lightheaded no unknown) passing out. He denies chest pain or shortness of breath. (unknown) (no (unknown) (unknown) moist mucous (units (u nknown) date) membranes unknown) (unknown) (no (unknown) (unknown) not on any daily (units (unknown) date) thinners. He is unknown) had lithotripsy for kidney stone. No known (unknown) (no (unknown) (unknown) or other changes (units (unknown) date) that would make me unknown) suspicious that he needs further workup at (unknown) (no (unknown) (unknown) other new or (units (u nknown) date) concerning unknown) changes. (unknown) (no (unknown) (unknown) pain. Patient has (units (unknown) date) not had similar unknown) symptoms in the past. He denies any urinary (unknown) (no (unknown) (unknown) patient exam (units (u nknown) date) otherwise is unknown) reassuring and he has not had fevers, abdominal pain (unknown) (no (unknown) (unknown) rectal foam (units (un known) date) (Proctofoam HC) unknown) hemorrhoids #10 grams (unknown) (no (unknown) (unknown) soft hemorrhoid (units (unknown) date) no active bleeding unknown) but there is some dried blood at the site. (unknown) (no (unknown) (unknown) stones who (units (unk nown) date) presents with unknown) rectal pain bleeding that has been going on for 2 or 3 (unknown) (no (unknown) (unknown) such as Colace, (units (unknown) date) Proctofoam unknown) rectally, Sitz bath or warm soaks for treatment and (unknown) (no (unknown) (unknown) symptoms no (units (un known) date) dysuria urgency or unknown) frequency. No black or tarry stools. Patient is (unknown) (no (unknown) (unknown) this time. (units (unk nown) date) Discussed unknown) increasing oral fluids, high-fiber diet, stool softener (unknown) (no (unknown) (unknown) we discussed (units (u nknown) date) return unknown) precautions. Patient is no longer taking [place] and we Social History date description facility 2022-09-15 00:00 Smokes tobacco daily (finding) [facility] 2022-10-16 00:00 Smokes tobacco daily (finding) [facility] Vital Signs date measurement value units 2022-09-15 00:00 BMI 27.4 kg/m2 2022-09-15 00:00 BP_diastolic 85 mmHg 2022-09-15 00:00 BP_systolic 141 mmHg 2022-09-15 00:00 heart_rate 73 /min 2022-09-15 00:00 height_metric 185.42 cm 2022-09-15 00:00 height_standard 73 in 2022-09-15 00:00 o2_saturation 100 % 2022-09-15 00:00 respiration_rate 15 /min 2022-09-15 00:00 temperature_metric 36.28 C 2022-09-15 00:00 temperature_standard 97.3 F 2022-09-15 00:00 weight_metric 94.34 kg 2022-09-15 00:00 weight_standard 207.98 lb 2022-10-16 00:00 BMI 30.7 kg/m2 2022-10-16 00:00 BP_diastolic 64 mmHg 2022-10-16 00:00 BP_systolic 124 mmHg 2022-10-16 00:00 heart_rate 58 /min 2022-10-16 00:00 height_metric 177.8 cm 2022-10-16 00:00 height_standard 70 in 2022-10-16 00:00 o2_saturation 98 % 2022-10-16 00:00 respiration_rate 16 /min 2022-10-16 00:00 temperature_metric 36.22 C 2022-10-16 00:00 temperature_standard 97.2 F 2022-10-16 00:00 weight_metric 97.19 kg 2022-10-16 00:00 weight_standard 214.27 lb
--- NOTE | 2022-11-04 19:21 | ED Physician Documentation ---
PD HPI CHEST PAIN - Stated complaint Stated Complaint: CP, ANXIETY - Chief complaint Chief Complaint: Cardiac - History obtained from History obtained from: Patient - Additional information Additional information: 70-year-old gentleman presents with chest pain, anxiety, and suicidal ideation. States for the last few weeks he has had suicidal ideation with thoughts of sticking his head in a deep fryer. He was hospitalized at [facility] last month for couple days which she did find helpful but he does not want to be hospitalized today. He comes in more because he developed some shocking pains that went from his chest to right upper quadrant which are now gone. He feels like it this is associated with anxiety. Review of Systems Constitutional: denies: Fever, Chills Respiratory: denies: Dyspnea, Cough GI: denies: Abdominal Pain PD PAST MEDICAL HISTORY - Past Medical History Cardiovascular: None Respiratory: None Neuro: None Endocrine/Autoimmune: None GI: None : Kidney stones HEENT: None Psych: Depression, Anxiety, Panic attacks Musculoskeletal: None Derm: None - Past Surgical History Past Surgical History: Yes Ortho: Other - Present Medications Home Medications: Ambulatory Orders Medication Instructions Recorded Confirmed FLUoxetine [PROzac] 1 tab PO DAILY 07/16/21 02/21/22 Lurasidone HCl [Latuda] 10 mg PO DAILY 07/16/21 02/21/22 Cetirizine [ZyrTEC] 10 mg PO BID #15 tablet 12/31/21 02/21/22 Ibuprofen [Motrin] 600 mg PO TID PRN #25 tab 12/31/21 02/21/22 lamoTRIgine [Lamictal] 150 mg PO DAILY 12/31/21 02/21/22 traZODone [Desyrel] 150 mg PO HS PRN 12/31/21 02/21/22 Omeprazole 40 mg PO DAILY #30 cap 02/21/22 - Allergies Allergies/Adverse Reactions: Allergies Allergy/AdvReac Type Severity Reaction Status Date / Time No Known Drug Allergies Allergy Verified 11/04/22 18:41 - Social History Does the pt smoke?: Yes Smoking Status: Current every day smoker Does the pt drink ETOH?: Yes Does the pt have substance abuse?: No - Immunizations Immunizations are current?: No Immunizations: TDAP >10years/unknown - POLST Patient has POLST: No PD ED PE NORMAL - Vitals Vital signs reviewed: Yes - General General: Alert and oriented X 3, No acute distress - Cardiac Cardiac: RRR, No murmur - Respiratory Respiratory: No respiratory distress, Clear bilaterally - Abdomen Abdomen: Non tender - Back Back: No CVA TTP, No spinal TTP - Derm Derm: Normal color, Warm and dry - Extremities Extremities: No edema, No calf tenderness / cord - Neuro Neuro: Alert and oriented X 3, No motor deficit, No sensory deficit, Normal speech Eye Opening: Spontaneous Motor: Obeys Commands Verbal: Oriented GCS Score: 15 Results - Vitals Vitals: Vital Signs - 24 hr 11/04/22 18:35 Temperature 36.5 C Heart Rate 72 Respiratory 16 Rate Blood Pressure 124/73 O2 Saturation 97 Oxygen O2 Source Room air - EKG (time done) 1953 Rate: Rate (enter#) (59) Rhythm: NSR Only: Normal Intervals: Normal [place] QRS: Normal Ischemia: Normal ST segments PD Medical Decision Making - ED course ED course: 27-year-old gentleman presents with likely psychogenic chest pain related to anxiety and depression. We discussed hospitalization and he declines. He contracts for safety at home. His main issue is that he is having a lot of trouble with work and he would like a few days off with a work note. Departure - Departure Disposition: Home, Self Care Clinical Impression: Atypical chest pain Depression Qualifiers: Depression Type: major depressive disorder Major depression recurrence: recurrent Active/Remission status: currently active Major depression episode severity: moderate Qualified Code(s): F33.1 - Major depressive disorder, recurrent, moderate Condition: Good Record reviewed to determine appropriate education?: Yes Instructions: ED Chest Pain NonCardiac, ED Depression Comments: Return if you worsen, follow-up with your psychiatrist and therapist, next available appointments. Forms: Activity restrictions
[2022-11-04 20:06] VITALS: BP 125/76
== END 2022-11-04 20:04 | disposition home or self-care (01) ==
LOC: ED 18:30
DX: F41.9 Anxiety disorder, unspecified (principal); F33.1 Major depressive disorder, recurrent, moderate; R07.89 Other chest pain
CPT/HCPCS: 93005; 99283; 99284

== ENCOUNTER 2022-12-02 17:39 | Emergency (ER) | payer OTHER, MEDICAID ==
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
--- NOTE | 2022-12-02 18:55 | XRAY Report ---
PROCEDURE: Foot 3 View LT INDICATIONS: Trauma TECHNIQUE: 3 views of the foot were acquired. COMPARISON: None available of the left foot FINDINGS: Bones: No fractures or dislocations can be seen of the fifth toe. No fractures or dislocations are seen elsewhere. No suspicious bony lesions. There is a presumed bone island seen within the mid calc aneus. Soft tissues: No tibiotalar joint effusion. Achilles tendon appears normal. IMPRESSION: No displaced fracture can be seen of the fifth toe or elsewhere. Reviewed by: Keenan Servin MD on 12/02/2022 5:53 PM [facility] Approved by: Keenan Servin MD on 12/02/2022 5:53 PM [facility] Station ID: [id number]
[2022-12-02] MEDS ORDERED: KETOROLAC 30 MG/ML VIAL IM STA (19:59)
--- NOTE | 2022-12-02 20:02 | ED Physician Documentation ---
History of Present Illness - Stated complaint Stated Complaint: LT FOOT TOE PX - Chief complaint Chief Complaint: Ext Problem - Additonal information Additional information: 27-year-old male presents emergency department for evaluation of acute left foot pain sustained when he stubbed his small toe against a large wooden frame. He has had swelling and ecchymosis since. Injury occurred today. He does report a remote history of injury to this foot and toes well. Reliable historian Review of Systems Musculoskeletal: reports: Extremity pain PD PAST MEDICAL HISTORY - Past Medical History Cardiovascular: None Respiratory: None Neuro: None Endocrine/Autoimmune: None GI: None : Kidney stones HEENT: None Psych: Depression, Anxiety, Panic attacks Musculoskeletal: None Derm: None - Past Surgical History Past Surgical History: Yes Ortho: Other - Present Medications Home Medications: Ambulatory Orders Medication Instructions Recorded Confirmed FLUoxetine [PROzac] 1 tab PO DAILY 07/16/21 02/21/22 Lurasidone HCl [Latuda] 10 mg PO DAILY 07/16/21 02/21/22 Cetirizine [ZyrTEC] 10 mg PO BID #15 tablet 12/31/21 02/21/22 Ibuprofen [Motrin] 600 mg PO TID PRN #25 tab 12/31/21 02/21/22 lamoTRIgine [Lamictal] 150 mg PO DAILY 12/31/21 02/21/22 traZODone [Desyrel] 150 mg PO HS PRN 12/31/21 02/21/22 Omeprazole 40 mg PO DAILY #30 cap 02/21/22 - Allergies Allergies/Adverse Reactions: Allergies Allergy/AdvReac Type Severity Reaction Status Date / Time No Known Drug Allergies Allergy Verified 12/02/22 17:56 - Social History Does the pt smoke?: Yes Smoking Status: Current every day smoker Does the pt drink ETOH?: Yes Does the pt have substance abuse?: Yes - Immunizations Immunizations are current?: No Immunizations: TDAP >10years/unknown - POLST Patient has POLST: No PD ED PE EXPANDED - Extremities Extremities: Left foot (Swelling and ecchymosis to the left small toe. Tenderness to palpation. No deformity. No tenderness of the fifth metatarsals or at the base of the fifth metatarsal. 2+ DP pulse.) Results - Vitals Vitals: Vital Signs - 24 hr 12/02/22 17:54 Temperature 36.6 C Heart Rate 82 Respiratory 14 Rate Blood Pressure 139/79 H O2 Saturation 97 Oxygen O2 Source Room air - Rads (name of study) left foot Radiology: Final report received (No acute fracture or osseous lesion or dislocation) PD Medical Decision Making - ED course Complexity details: considered differential, d/w patient ED course: Well-appearing 27-year-old male presents with acute pain to the left small toe and sustained when he stubbed it against a wooden frame. There is swelling and ecchymosis to the small toe though no deformity. Differentials considered include contusion, soft tissue injury versus occult fracture. The x-ray of the toe does not show an obvious fracture though given the amount of ecchymosis I do favor occult fracture. Patient was placed in chris tape splinting and given a dose of Toradol here in the ER. We discussed the usual conservative care measures for occult toe fractures. Emergent return precautions were discussed Departure - Departure Disposition: 01 Home, Self Care Clinical Impression: Injury of left toe Qualifiers: Encounter type: initial encounter Qualified Code(s): S99.922A - Unspecified injury of left foot, initial encounter Condition: Stable Record reviewed to determine appropriate education?: Yes Comments: Sj the x-ray of your toe does not show an obvious fracture though with the amount of bruising you have it is likely that there is a small hairline fracture that is not visible on x-ray. At this time we would like you to chris tape your small toe to your ring toe when out of bed. Wearing a hard soled shoe can be helpful. Typically Tylenol and ibuprofen [id number] is what is recommended for these types of injuries. I would expect that you are having persistent pain over the next few weeks but it should start to get better after about 2 weeks. Return to the ER for any other emergent concerns
[2022-12-02 20:17] VITALS: BP 128/80
== END 2022-12-02 20:18 | disposition home or self-care (01) ==
LOC: ED 17:39
DX: S99.922A Unspecified injury of left foot, initial encounter (principal); W22.09XA Striking against other stationary object, initial encounter; F17.200 Nicotine dependence, unspecified, uncomplicated
CPT/HCPCS: 96372; 99283

== ENCOUNTER 2023-05-21 17:41 | Emergency (ER) | payer OTHER, MEDICAID ==
--- OUTSIDE RECORDS SUMMARY | 2023-05-21 19:20 | EXTERNAL MEDICAL SUMMARY RPT | Continuity of Care Document ---
Author Name Unknown Address [address] [place] [address] Phone Organization [facility] Address [address] [place] [address] Phone Care Team Providers Care Pier Hand Helper Name Role Phone Stella Perry Unavailable Unavailable Allergies and Intolerances date description facility reaction severity (no date) No Known Drug Allergies [facility] (no gerri ction) (no severity) Medications date description facility 2023-03-01 00:00 Fluoxetine [facility] 2023-03-01 00:00 Naltrexone [facility] 2023-03-01 00:00 Lamotrigine [facility] 2023-03-01 00:00 Aripiprazole [facility] 2023-03-01 00:00 Nystatin [facility] 2023-03-01 00:00 Trazodone [facility] 2023-03-01 00:00 Propranolol [facility] 2023-03-01 00:00 Hydroxyzine Hcl [facility] Problems date description facility 2023-03-01 00:00 Panic attack as reaction to str ess [facility] 2023-03-01 00:00 Suicidal ideation [facility] 2023-04-17 00:00 Anxiety [facility] 2023-04-17 00:00 Atypical chest pain [facility] 2023-04-17 00:[facility] Results/Labs test date facility value unit notes Social History date description facility 2023-03-01 00:00 Smokes tobacco daily (finding) [facility] 2023-04-17 00:00 Ex-smoker (finding) [facility] Vital Signs date measurement value units 2023-03-01 00:00 BMI 29.7 kg/m2 2023-03-01 00:00 BP_diastolic 78 mmHg 2023-03-01 00:00 BP_systolic 131 mmHg 2023-03-01 00:00 heart_rate 68 /min 2023-03-01 00:00 height_metric 185.42 cm 2023-03-01 00:00 height_standard 73 in 2023-03-01 00:00 o2_saturation 99 % 2023-03-01 00:00 respiration_rate 18 /min 2023-03-01 00:00 temperature_metric 36.83 C 2023-03-01 00:00 temperature_standard 98.3 F 2023-03-01 00:00 weight_metric 102.05 kg 2023-03-01 00:00 weight_standard 224.98 lb 2023-04-17 00:00 BMI 32.7 kg/m2 2023-04-17 00:00 BP_diastolic 80 mmHg 2023-04-17 00:00 BP_systolic 141 mmHg 2023-04-17 00:00 heart_rate 74 /min 2023-04-17 00:00 height_metric 185.42 cm 2023-04-17 00:00 height_standard 73 in 2023-04-17 00:00 o2_saturation 95 % 2023-04-17 00:00 respiration_rate 17 /min 2023-04-17 00:00 temperature_metric 37 C 2023-04-17 00:00 temperature_standard 98.6 F 2023-04-17 00:00 weight_metric 112.49 kg 2023-04-17 00:00 weight_standard 248 lb
[2023-05-21] MEDS ORDERED: LORazepam 1 MG TABLET PO STA (19:56)
--- NOTE | 2023-05-21 20:26 | CT Report ---
PROCEDURE: HEAD WO INDICATIONS: head injury, dizzy TECHNIQUE: Noncontrast 4.5 mm thick angled axial sections acquired from the foramen magnum to the vertex. For r adiation dose reduction, the following was used: automated exposure control, adjustment of mA and/or kV according to patient size. COMPARISON: None. FINDINGS: Image quality: Excellent. CSF spaces: Basal cisterns are patent. No extra-axial fluid collections. Ventricles are normal in size and shape. Brain: No midline shift. No intracranial masses or hemorrhage. Choi-white matter interface is norm al. Skull and face: Calvarium and visualized facial bones are intact, without suspicious lesions. Sinuses: Visualized sinuses demonstrate mild mucosal thickening within the left maxillary sinus. Mas toid air cells are clear. IMPRESSION: 1. No acute intracranial abnormality. Reviewed by: Loy Phipps MD on 05/21/2023 8:25 PM PDT Approved by: Loy Phipps MD on 05/21/2023 8:25 PM PDT Station ID: [id number]
--- NOTE | 2023-05-21 20:36 | ED Physician Documentation ---
History of Present Illness - Stated complaint Stated Complaint: HEADACHE,DIZZYNESS - Chief complaint Chief Complaint: MHE - History obtained from History obtained from: Patient, Family - History of Present Illness Timing: Today Pain level max: 4 Pain level now: 3 - Additonal information Additional information: 28-year-old male presents to the emergency department with his father. Reportedly he became upset at home and began hitting his right hand on top of his left hand on his forehead. Father states that the patient appears slightly drowsy. No vomiting. No loss of consciousness. Has a longstanding history of hitting his own head with his hands. No bruising or swelling. No neck or back pain. No seizure activity Patient has a longstanding psychiatric history and was recently admitted to [facility]. Not suicidal, homicidal or requesting mental health treatment at this time. Review of Systems Constitutional: denies: Fever, Chills GI: denies: Vomiting, Diarrhea Skin: denies: Rash Musculoskeletal: denies: Neck pain, Back pain Neurologic: denies: Headache PD PAST MEDICAL HISTORY - Past Medical History Cardiovascular: None Respiratory: None Neuro: None Endocrine/Autoimmune: None GI: None : Kidney stones HEENT: None Psych: Depression, Anxiety, Panic attacks Musculoskeletal: None Derm: None - Past Surgical History Past Surgical History: Yes Ortho: Other - Present Medications Home Medications: Ambulatory Orders Medication Instructions Recorded Confirmed FLUoxetine [PROzac] 1 tab PO DAILY 07/16/21 02/21/22 Lurasidone HCl [Latuda] 10 mg PO DAILY 07/16/21 02/21/22 Cetirizine [ZyrTEC] 10 mg PO BID #15 tablet 12/31/21 02/21/22 Ibuprofen [Motrin] 600 mg PO TID PRN #25 tab 12/31/21 02/21/22 lamoTRIgine [Lamictal] 150 mg PO DAILY 12/31/21 02/21/22 traZODone [Desyrel] 150 mg PO HS PRN 12/31/21 02/21/22 Omeprazole 40 mg PO DAILY #30 cap 02/21/22 - Allergies Allergies/Adverse Reactions: Allergies Allergy/AdvReac Type Severity Reaction Status Date / Time No Known Drug Allergies Allergy Verified 05/21/23 18:13 - Social History Does the pt smoke?: Yes Smoking Status: Current every day smoker Does the pt drink ETOH?: Yes Does the pt have substance abuse?: Yes - Immunizations Immunizations are current?: No Immunizations: TDAP >10years/unknown - POLST Patient has POLST: No PD ED PE NORMAL - Vitals Vital signs reviewed: Yes - General General: Alert and oriented X 3, No acute distress - HEENT HEENT: Atraumatic, PERRL, Ears normal, Moist mucous membranes, Pharynx benign - Neck Neck: Supple, no meningeal sign, No bony TTP - Cardiac Cardiac: RRR, Strong equal pulses - Respiratory Respiratory: No respiratory distress, Clear bilaterally - Abdomen Abdomen: Soft, Non tender, Non distended - Back Back: No spinal TTP - Derm Derm: Warm and dry, No rash - Extremities Extremities: No edema, No calf tenderness / cord - Neuro Neuro: Alert and oriented X 3, 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, No motor deficit, No sensory deficit, Normal speech Eye Opening: Spontaneous Motor: Obeys Commands Verbal: Oriented GCS Score: 15 - Psych Psych: Normal mood, Normal affect Results - Vitals Vitals: Vital Signs - 24 hr 05/21/23 05/21/23 18:06 20:41 Temperature 36.7 C 36.7 C Heart Rate 76 63 Respiratory 15 18 Rate Blood Pressure 131/71 H 135/72 H O2 Saturation 98 98 Oxygen O2 Source Room air - Rads (name of study) Head CT Relevant Findings:: Final report received, See rad report PD Medical Decision Making - ED course Complexity details: reviewed results, re-evaluated patient, considered differential, d/w patient, d/w family ED course: 28-year-old male status post self-inflicted head injury with his hands. Given his persistent drowsiness, head CT was performed, no acute findings. Patient was feeling anxious but felt better after Ativan. GCS 15. No focal neurological deficits. Not suicidal or homicidal. Not acutely psychotic. We will have him follow-up with his doctor for further care. Patient and family counseled regarding signs and symptoms for which I believe and urgent re- evaluation would be necessary. Patient with good understanding of and agreement to plan and is comfortable going home at this time This document was made in part using voice recognition software. While efforts are made to proofread this document, sound alike and grammatical errors may occur. Departure - Departure Disposition: 01 Home, Self Care Clinical Impression: Closed head injury Qualifiers: Encounter type: initial encounter Qualified Code(s): S09.90XA - Unspecified injury of head, initial encounter Condition: Good Instructions: ED Head Injury Closed Follow-Up: Your,doctor in 1 week [Other] Comments: There are no acute findings on his head CT today. Please follow-up with his doctor for further care. Please return if he worsens. I would recommend continuing to work with his psychiatrist and therapist. Forms: PCP List Discharge Date/Time: 05/21/23 20:41
[2023-05-21 20:48] VITALS: BP 135/72
== END 2023-05-21 20:41 | disposition home or self-care (01) ==
LOC: ED 17:41
DX: S09.90XA Unspecified injury of head, initial encounter (principal); Y33.XXXA Other specified events, undetermined intent, initial encounter; Y93.89 Activity, other specified; F41.9 Anxiety disorder, unspecified; F17.200 Nicotine dependence, unspecified, uncomplicated
CPT/HCPCS: 70450; 99283; 99284; J8499

== ENCOUNTER 2024-04-09 20:39 | Outpatient (CLI) | payer MEDICAID | END 2024-04-09 23:59 | disposition short-term general hospital (02) | LOC: EMS 20:39 | PROVIDERS: ATTEND Emergency Medicine | DX: R42 Dizziness and giddiness (principal); R04.2 Hemoptysis | CPT/HCPCS: A0425; A0429; A0999 ==